=== PATIENT | female | born 1975 | race Caucasian/White ===

== ENCOUNTER 2024-03-25 00:52 | Inpatient (IN) | payer MEDICARE, OTHER, SELFPAY ==
[2024-03-24] VITALS (7 sets, daily range): BP systolic 118–141; BP diastolic 67–78; BMI 19.2
--- NOTE | 2024-03-24 22:02 | EDRN ---
RN called to bedside at 19:40 by pt.'s for reported witnessed seizure-like activity. MD Bernal and Yi Benedict, HEALTH SERVICES COORDINATOR at bedside w/. pt. Pt. is now awake but drowsy, amnesic to event. Pt. placed on 2L NC, stat. CT ordered. CT aware. RN w/ IV
ativan on hold if needed for additional seizure0-like activity, pt. in no acute distress currently. Remains on monitor.
[2024-03-24 22:16] LABS: % Basophils 0.6 % (0-2); % Eosinophils 0.2 % (0-6); % Immature Granulocytes 0.5 % (0-0.5); % Monocytes 4.8 % (1.7-9.3); % Neutrophils 84.9 % (42.2-75.2); Absolute Basophils 0.1 10^3/uL (0-0.2); Absolute Immature Granulocytes 0.1 10^3/uL (0-0.05); Absolute Lymphocytes 1.6 10^3/uL (1.2-3.4); Absolute Monocytes 0.8 10^3/uL (0.1-0.6); Absolute Neutrophils 14.7 10^3/uL (1.4-6.5); Hematocrit 39.5 % (37.0-47.0); Hemoglobin 13.7 g/dL (12.0-16.0); Mean Corp Hgb Conc. 34.7 g/dL (33.0-37.0); Mean Corpuscular Volume 83.5 fL (81.0-99.0); Mean Platelet Volume 11.1 fL (7.4-10.4); Nucleated Red Blood Cells % 0 %; Platelet Count 289 10^3/uL (130-400); Red Blood Cell Count 4.73 10^6/uL (4.20-5.40); Red Cell Dist. Width 12.2 % (11.5-14.5); White Blood Cell Count 17.3 10^3/uL (4.8-10.8)
[2024-03-24] MEDS: VALIUM INJECTION 5 MG IV (22:33)
[2024-03-24 22:35] LABS: COVID-19 Antigen Negative (Negative)
[2024-03-24 22:38] LABS: ALT (SGPT) 22 U/L (0-35); AST (SGOT) 37 U/L (14-36); Albumin 4.7 g/dl (3.5-5.0); Alkaline Phosphatase 79 U/L (38-126); Blood Urea Nitrogen 14 mg/dl (7-17); Calcium 9.8 mg/dl (8.4-10.2); Carbon Dioxide 23 mmol/L (22-30); Chloride 105 mmol/L (98-107); Estimated Creatinine Clearance 69 ml/min; Glucose 117 mg/dl (70-99); Potassium 4.3 mmol/L (3.5-5.1); Sodium 135 mmol/L (135-145); Total Bilirubin 0.8 mg/dl (0.2-1.3); Total Protein 7.5 g/dl (6.3-8.2); eGFR > 60.00
--- NOTE | 2024-03-24 23:05 | EDRN ---
2 RN and 1 ECT unsuccessful w/ straight cath. attempt x 2. Perineal hygiene complete, purewick placed, care team aware of unsuccessful attempts.
--- NOTE | 2024-03-24 23:17 | ED.GENMED ---
History of Present Illness
General
Chief Complaint: Musculo-Skeletal Complaint
Source: patient
Exam Limitations: none
Time Seen by Provider: 03/24/24 21:48
Nursing documentation reviewed up to this point in time: agreed with
Travel History
Have you had any contact with someone who has COVID-19?: No
Do you have any symptoms of coronavirus? Fever > 100 degrees, chills, cough, shortness of breath, sore throat, loss of taste or smell, muscle aches, or headache?: No
History of Present Illness
History of Present Illness:
49 y/o F with h/o MS
no meds followed by dr. bradley from [place] for neuro
she is here with her
c/o ms flare with stiffness in both legs, not better with her normal dose of baclofen
she also uses xanax which she hasn't missed
EMS gave her 2 doses fo fentanyl which helped briefly but then while waiting to b seen she had a tonic clonic seizure lasting about 1 min
it resolved before meds given
pt was post ictal briefly and then was not moving her left arm or leg
she also had a brief hemineglect on left
but then was more responsive and that seemed to resovle
she has not had any recent infectious symptoms, cough, cold urine
pt vomited x 2 at home today apparently before EMS
Past History
Past History
ED Past Medical History: Other (multiple sclerosis)
ED Past Surgical History:
Patient has exhibited threatening behavior?: No
PSI?: No
Social History
Tobacco: Non-smoker
Drug: None
Personal:
Living: with family
Employment: Disabled
Family History
Family History: Other (reviewed and noncontributory)
Review of Systems
Review of Systems
Allergies reviewed?: Yes
All Other Systems: Not applicable
Phy Exam
Physical Exam
Physical Exam:
GENERAL: Alert chronically illl appearing
pt had tonic clonic seizure while i was seeing her
HEAD: NCAT
EYE: pupils equal and reactive, no nystagmus, photophobia
NECK: Supple,full rom, nontender
ENT: o/p clr, mmm.
CARDIAC: Regular rate and rhythm . no edema
LUNGS: Clear breath sounds bilaterally, no acute respiratory distress, no wheezes/rales/rhonchi
ABDOMEN: Soft, without focal tenderness, no r/g, no cvat
NEUROLOGICAL: pt is now a&ox 3, cn intact, strength symmetric
sh edid have some L sided weakness arm and leg
SKIN: Warm and dry, skin intact.
MUSCULOSKELETAL: No edema, well perfused.
PSYCH: Normal and appropriate interaction.
Course
Orders/Labs/Results
Orders:
Orders
03/24/24 21:42
Lorazepam [Ativan] 2 mg .ROUTE .STK-MED ONE
03/24/24 21:49
Electrocardiogram (*1) Urgent
Reason for Study: QTc Monitoring
CT Head W/o Iv Contrast Urgent
Comment:
Reason For Exam: new onset seizure
EKG- Treatment ONCE
Urinalysis Reflex To Culture Urgent
03/24/24 22:11
COVID-19 Antigen Urgent
Source: Nasal Swab
Complete Blood Count/With Diff Urgent
Comprehensive Metabolic Panel Urgent
03/24/24 22:31
diazePAM [Valium Injection] 5 mg IV NOW STA
03/24/24 22:40
Straight cath- Treatment ONCE
03/24/24 23:05
CR Chest - 2 Views Urgent
Comment:
Reason For Exam: fever, siezure
03/24/24 23:22
0.9% Sodium Chloride 1000 ml [Nss] 1,000 ml IV BOLUS
Levetiracetam Injectable [Keppra] 1,500 mg IV NOW STA
03/24/24 23:49
Blood Culture Q30M
REY Source: Blood/Venous
Specimen Description:
Influenza A+B Rapid Molecular Urgent
REY Source: Nasal Swab
Specimen Description:
03/25/24 00:00
Blood Culture Q30M
REY Source: Blood/Venous
Specimen Description:
Abnormal Lab Results
03/24/24
22:11
WBC 17.3 H 10^3/uL
(4.8-10.8)
MPV 11.1 H fL
(7.4-10.4)
Abs Immat Gran (auto) 0.1 H 10^3/uL
(0-0.05)
Absolute Neuts (auto) 14.7 H 10^3/uL
(1.4-6.5)
Absolute Monos (auto) 0.8 H 10^3/uL
(0.1-0.6)
Neutrophils % 84.9 H %
(42.2-75.2)
Lymphocytes % 9.0 L %
(20.5-51.1)
Glucose 117 H mg/dl
(70-99)
AST 37 H U/L
(14-36)
03/24/24 22:11
03/24/24 22:11
Vital Signs
Initial and Last Documented VS:
Initial Vital Signs
BP
128/68
03/24/24 20:34
Last Documented Vital Signs
Temp Pulse Resp BP Pulse Ox
100.8 F H 84 19 126/73 98
03/24/24 21:55 03/24/24 23:01 03/24/24 23:01 03/24/24 23:01 03/24/24 22:10
MDM/Problems Addressed
Differential Diagnosis Includes:
ms, seiuzre, withdrawal, infection/encephlaitis
MDM/Problems Addressed:
49 y/o F from home, MS, nonambulatory, no meds for MS (other than baclofen and xanax) here with spasms in her legs and pain x 2 days; but then on arrival was witnessed by me to have tonic clonic seizure lasting 1 min, resolved, mild post ictal state
and what seemed like robb's paralysis, left hemineglect, but that is resolved; temp 100.8 after seizure, tachy resolved, pain is better after valium
wbc [address] shows MS lesions
d/w neurology attg dr. peraza, keppra 1500 iv now, w/u with blood cultures and urinae for infection (pt was difficult to straight cath so waiting on urine from purwik)
cxr suspicious for pna.
*Critical Care Note
Total Time (30-74mins, 75-104mins- exclusive of procedures): Not Applicable
ED Attending Note
-
Portions of this chart may have been created with voice recognition software.� Occasional wrong word or��sound alike� substitutions may have occurred due to the inherent limitations of voice recognition software.
Discharge Plan
Departure
Patient Disposition: Admit
Date of Disposition: 03/24/24
Time of Disposition: 23:24
Admit to: Telemetry
Presentation/result/management discussed w/ accepting MD/DO: Hospitalist
Condition: Fair
Covid-19: Not Applicable
Discharge Problem:
New onset seizure, Multiple sclerosis, ms flare
Prescriptions:
No Action
tolterodine 2 mg capsule,extended release 24hr
2 mg PO BID
tizanidine 2 mg tablet
2 mg PO TID
trazodone 50 mg tablet
50 mg PO HS
spironolactone 100 mg tablet
100 mg PO DAILY
citalopram 20 mg tablet
20 mg PO BID
baclofen 20 mg tablet
20 mg PO BID 30 Days Qty: 60 0RF
multivitamin Tablet
1 tab PO DAILY
cyanocobalamin (vitamin B-12) [Vitamin B-12] 1,000 mcg Tablet
1,000 mcg PO DAILY
magnesium 250 mg Tablet
500 mg PO DAILY
cholecalciferol (vitamin D3) [Vitamin D3] 50 mcg (2,000 unit) Tablet
50 mcg PO DAILY
Lion's Walter
2,100 mg PO BID
Turmeric Gummies 250 MG
250 mg PO DAILY
alprazolam 0.5 mg tablet
1 mg PO BID
Patient Comments:
03/24/2024: LAST FILLED 03/24/24, 120 TABS FOR 30 DAYS FROM [id number]
Referrals:
Jayda Teague CRNP [Family Provider] -
Interventions
Interventions:
*Risk Screen - Suicide Last Done: 03/24/24 20:35
*General Assessment Last Done: 03/24/24 20:35
*Neglect/Abuse Screening Last Done: 03/24/24 20:35
ED- Fall Risk Assessment Last Done: 03/24/24 21:18
*ED COVID-19 Vaccine History Last Done: 03/24/24 20:35
YA-Efptdf-Xtlvqsbotb Assessment Last Done: 03/24/24 21:00
ED-Musculoskeletal Assessment Last Done: 03/24/24 21:00
Discharge Date and Time
Print Language: ARABIC
[2024-03-25] VITALS (8 sets, daily range): BP systolic 97–127; BP diastolic 52–70; BMI 19.5
[2024-03-25] MEDS: KEPPRA 1500 MG IV (00:13)
[2024-03-25] MEDS: NSS 1000 IV ×3 (00:14→17:18)
--- NOTE | 2024-03-25 00:21 | HPS.HSE ---
Family Physician
-
Family Physician: ANASTASIA King
Chief Complaint
-
Like tightness and spasms
History of Present Illness
This is a 49-year-old female with past medical history of multiple sclerosis, appendicitis, perforation status post appendectomy presenting to the emergency department with 2 days of leg spasms found to have spontaneously resolving seizure lasting
about 1 minute while in the emergency department.
Patient reports that she has a longstanding history of multiple sclerosis but is not currently on any disease modifying agents. She does follow with neurologist. She reports that she is normal but does have a wheelchair. She reported being in
usual state of health up until 2 days ago when she noticed increasing tightness and spasms in her lower extremities bilaterally. She reports chronic intermittent urinary incontinence which is unchanged. She denies any abdominal pain nausea or
vomiting. She denies any chest pain. She denies any coughing or shortness of breath. She denies having any fevers or chills at home. She denies any rash. There have been no skin ulcers. He has been no acute changes in the medications.
When the patient arrived in the ED she appeared to have a witnessed tonic-clonic seizure lasting about 1 minute. Thereafter she had a mild postictal state and was send like Ld's paralysis with left hemineglect. That appeared to have resolved at
this time. She was also found to have a temp of one 100.8.
Vital signs have been otherwise stable with a blood pressure 116/60 pulse of 87 saturation of 98% with respiratory rate of 18. She had leukocytosis of 17,000 with normal hemoglobin and platelet count. Chemistries were unremarkable. ECG with
normal sinus rhythm without any acute changes. COVID test was negative. Head CT was unremarkable except for demyelinating white matter disease. He had a chest x-ray which shows a 80 opacity in the right middle lobe.
Medical History
Past Medical History
Past Medical History: Reports Other (Multiple Sclerosis)
Past Surgical History: Reports Appendectomy
Social History
Tobacco: Non-smoker
Alcohol: None
Drug: None
Personal:
Living: With Family
Employment: Disabled
Family History
Family History: Not pertinent
Allergies / Home Medications
Allergies reflects when Allergies were last updated in [facility].
Home Medications with original date entered in [facility]
Allergy/Medication List:
Allergies
Allergy/AdvReac Type Severity Reaction Status Date / Time
No Known Allergies Allergy Verified 03/24/24 20:34
Home Medications
citalopram 20 mg tablet 20 mg PO BID 06/26/22
spironolactone 100 mg tablet 100 mg PO DAILY 06/26/22
tizanidine 2 mg tablet 2 mg PO TID 06/26/22
tolterodine 2 mg capsule,extended release 24 hr 2 mg PO BID 06/26/22
trazodone 50 mg tablet 50 mg PO HS 06/26/22
baclofen 20 mg tablet 20 mg PO BID 30 days #60 tabs 07/08/22
Lion's Walter 2,100 mg PO BID 03/24/24
Turmeric Gummies 250 mg PO DAILY 03/24/24
alprazolam 0.5 mg tablet 1 mg PO BID 03/24/24
cholecalciferol (vitamin D3) 50 mcg (2,000 unit) tablet (Vitamin D3) 50 mcg PO DAILY 03/24/24
cyanocobalamin (vitamin B-12) 1,000 mcg tablet (Vitamin B-12) 1,000 mcg PO DAILY 03/24/24
magnesium 250 mg tablet 500 mg PO DAILY 03/24/24
multivitamin 1 tab PO DAILY 03/24/24
Review of Systems
-
Unable to obtain full review of systems at this time due to: Acuity
History Source: Patient
Constitutional: Reports No Symptoms
EENT: Reports No Symptoms
Respiratory: Reports No Symptoms
Cardiac: Reports No Symptoms
Abdomen/GI: Reports No Symptoms
: Reports No Symptoms
Musculoskeletal: Reports No Symptoms
Skin: Reports No Symptoms
Neurological: Reports Other (leg spasms)
Endocrine: Reports No Symptoms
Hematologic/Lymphatic: Reports No Symptoms
Psych: Reports No Symptoms
Physical Exam
Vital Signs
Vital Signs
Temp Pulse Resp BP Pulse Ox
100.8 F H 87 18 116/60 97
03/24/24 21:55 03/25/24 00:15 03/25/24 00:15 03/25/24 00:00 03/24/24 23:48
Physical Exam
General: No Apparent Distress
HEENT: NormoCephalic, Anicteric, Moist mucous membranes, Atraumatic, PERRLA and Neck Nontender
Respiratory: Clear
Cardiac: S1/S2 and Regular Rhythm
Breast: Deferred by me
GI: Soft, Non Tender, Non Distended and Normal Bowel Sounds
Rectal: Deferred by Provider
Genito-urinary: No costovertebral tender
Musculoskeletal: No Clubbing, No Cyanosis and No Edema
Skin: Warm and Dry
Neuro: AO x 3, No Sensory Deficits and Other (paraplegia)
Hematologic/Lymphatic: No Lymphadenopathy
Laboratory Results
-
03/24/24 22:11
03/24/24 22:11
Laboratory Results
Total Bilirubin 0.8 mg/dl (0.2-1.3) 03/24/24 22:11
AST 37 U/L (14-36) H 03/24/24 22:11
ALT 22 U/L (0-35) 03/24/24 22:11
Alkaline Phosphatase 79 U/L (38-126) 03/24/24 22:11
Data Reviewed
-
Diagnostic Radiology: Image Personally Visualized and interpreted
Medical Tests (Nuc Med, Echo, EKG etc): Image Personally Visualized and interpreted
Lab Data: Labs Reviewed by me
Old Records: Reviewed
Impression/Plan
-
IMPRESSION:
49 y.o female with h/o MS, bed-bound presenting initially with leg pain and spasms x 2 days thought to be exacerbation of MS and found to have a tonic-clonic seizure in ED lasting 1 minute with post-ictal depression. The post-ictal depression is
resolving. She was thought to have todds paralysis with left hemineglect. Now improved. Leukocytosis and temp of 100.4. Negative COVID.
PLAN:
1. New onset seizure - Possible new onset seizure. Denies prior history. No recent medication changes. CT head with demyelinating white matter changes noted but otherwise unremarkable.
- admit to med surg
- s/p valium in Ed, S/P Keppra 1.5 mg, Neurology consulted
- iv fluids overnight
- metabolic panel WNL
- possible infectious w/u on going
- lorazepam 2mg iv prn recurrent seizure.
2. MS - Possible MS flair. Patient currently without new symptoms. CT scan with white matter changes c/w active disease
- neurology consult
- continue baclofen
3. Fever - Leukocytosis. Xray with RML haziness on the PA view but no consolidation on lateral view. Not convincing.
- hold antibiotics for now
- blood cultures
- u/a and urine cultures sent
- negative covid, flu pending
- check pro-calcitonin
- if fever recurs, will start azithromycin+ceftriaxone for CAP
DVT PPX - lovenox sq
Full Code
[2024-03-25] MEDS: DESYREL 50 MG PO ×2 (02:20→21:39)
[2024-03-25] MEDS: LIORESAL 20 MG PO ×3 (02:21→20:15)
--- NOTE | 2024-03-25 02:56 | PTCARENOTE ---
Patient arrived to unit via stretcher with diagnosis of new onset seizure and MS. Patient AAOx3 but in 09/08 pain stating bilateral leg tightness. Notified on ct OCONNOR who ordered STAT dose of Baclofen and Trazodone. Once medications took effect,
patient fell asleep. Patient denied SOB or chest pain. Per ED nurse, attempted to straight cath patient x2 with no success. Md aware. Patient declined another attempt at current time. Seizure pads in place. Call [facility] within reach.
[2024-03-25 07:09] LABS: Hematocrit 36.6 % (37.0-47.0); Hemoglobin 12.4 g/dL (12.0-16.0); Mean Corp Hgb Conc. 33.9 g/dL (33.0-37.0); Mean Corpuscular Hgb 29.1 pg (27.0-31.0); Mean Corpuscular Volume 85.9 fL (81.0-99.0); Mean Platelet Volume 10.6 fL (7.4-10.4); Platelet Count 220 10^3/uL (130-400); Red Blood Cell Count 4.26 10^6/uL (4.20-5.40); Red Cell Dist. Width 12.5 % (11.5-14.5); White Blood Cell Count 13.7 10^3/uL (4.8-10.8)
[2024-03-25 07:39] LABS: Blood Urea Nitrogen 20 mg/dl (7-17); Calcium 9.6 mg/dl (8.4-10.2); Carbon Dioxide 28 mmol/L (22-30); Chloride 106 mmol/L (98-107); Estimated Creatinine Clearance 82 ml/min; Glucose 109 mg/dl (70-99); Potassium 3.6 mmol/L (3.5-5.1); Sodium 140 mmol/L (135-145); eGFR > 60.00
[2024-03-25 07:40] LABS: Procalcitonin < 0.05 ng/ml (0.0-0.25)
--- NOTE | 2024-03-25 07:40 | RR ---
Patient noted to be rigid in bed and had pulled out iv site. Patient confused, and experiencing difficulty with word finding. When asked where she was, she states '[place]'. Then when asked her age and what month it is her response was '[place]'. [facility]
preformed, see flow sheet. with A Rapid Response was called on this patient, please see Rapid Response form.
[2024-03-25 07:54] LABS: Glucose - Point of Care 107 mg/dl (70-99)
--- NOTE | 2024-03-25 08:16 | CON.NEURO4 ---
Addendum entered and electronically signed by Cisco Herrera MD 03/25/24 13:12:
I saw and evaluated patient I reviewed the note by Clara Dos Santos agree with the findings the following comments:
The patient is a 49-year-old woman with a past no history of multiple sclerosis, spasticity who presents to the hospital initially calling for medical attention based on increased lower extremity spasms and some vomiting at home. He was given
fentanyl by EMS and was seen in the ER to have generalized seizure activity with loss of consciousness which spontaneously aborted and she did have some left-sided weakness along with hemineglect felt most likely to be a postictal Ld's paralysis
type phenomenon. She was given levetiracetam 1500 mg IV. She had white blood cell count of 17 in the ER and had low-grade fever of 100.8.
This morning patient had stroke alert called given confusion with concern for aphasia.
Patient follows with Dr. Thompson at [facility] for multiple sclerosis not currently on any immune modulating medications. At baseline she generally has intermittent urinary incontinence and generally uses wheelchair or walker for ambulation.
She has no personal or family history of seizure no significant alcohol use.
Neurologic examination shows an awake and alert patient who attends to the examiner and interacts with some abnormal speech and evidence of perseveration, mild right-sided visual hemineglect.
Smile is symmetric no dysarthria tongue is midline pupils equal round react light bilaterally. Extraocular is full with no gaze preference seen.
Symmetric strength of the upper extremities with no upper extremity pronator drift shows some mild right leg drift.
Significant spasticity of the lower extremities bilaterally.
CTA of the head and neck no significant intracranial occlusion
Assessment: Suspicion for possible infection given the low-grade fever and leukocytosis triggering seizure due to existing neurologic disease with multiple sclerosis.
Less likely but possible that the fever was a postseizure effect.
Less likely an ischemic stroke given the context of low-grade fever and leukocytosis and seizure as well as history of multiple sclerosis.
Recommendations
-Continue on levetiracetam 500 mg every 12 hours IV
-Neurologic checks
-Placed on continuous EEG, anticipate needing for 24 hours
-If no further seizure activity seen then plan on obtaining brain MRI with and without contrast
-Patient being treated with empiric antibiotic, follow infectious workup and cultures
Original Note:
Documented by User: Clara Gomes NP 03/25/24 11:36
Consultation - Neurology 4
-
CONSULTING PHYSICIAN: Emmanuelle Herrera MD
REFERRING PHYSICIAN: Hospitalists/Dr. Pichardo
DICTATED BY: ANASTASIA Lott
DATE/TIME OF REQUEST: 03/25/24
DATE/TIME OF CONSULTATION: 03/25/24
Reason for Consultation: New onset seizure/Stroke Alert
History of Present Illness:
This is a 49-year-old female with a PMH of multiple sclerosis who has presented to the hospital on 03/24/24 with report of increased bilateral lower extremity spasms and pain. She vomited twice at home and her brought her to the ER for
evaluation. On arrival in the ER, patient had a witness generalized seizure lasting 1 minutes. Upon resolution of seizure activity she was noted to be in a post-ictal state and have a left-sided Ld's paralysis with left hemineglect that resolved.
She was loaded with levetiracetam 1500mg IV. Temp was 100.[address] head was obtained and is negative for any acute findings, demonstrates chronic demyelinating white matter lesions compatible with MS. CXR demonstrates a mild right pleural
effusion. This morning (03/25/24), patient was last seen at her baseline around 0300. Around 0745 patient was woken from sleep by nursing staff and was noted to be aphasic/perseverating with RLE drift promoting a stroke alert to be called. NIHSS is a
4 for mild aphasia, unable to answer orientation questions correctly, and RLE drift. She was taken for CT head and CTA head/neck which are negative for any acute abnormalities. Patient's perseveration/confusion thought to be due to a post-ictal
state not due to stroke and NIHSS is<6 so she is not a candidate for TNK/IAT. Patient denies any headache, dizziness, vision changes, numbness, chest pain, palpitations, and shortness of breath. She endorses difficultly with speech/frustration and
chronic issues with dysphagia. BLE are weak and stiff at baseline.
She is followed by Neurology Dr. Mace at [facility] for her MS. She reports being diagnosed in 1998 and she has been using a cane and/or wheelchair for ambulation since that time. She is not currently taking any DMTs for an unclear reason. She reports
being on 'all of them' in the past. She has a chronic overactive bladder with intermittent urinary incontinence. She denies any recent fevers, illness, sick exposures, and dysuria. She denies any history of seizure, head/neck trauma, or family
history of seizure.
Past Medical History: Multiple sclerosis, rosacea, psoriasis, depression, insomnia, vitamin D deficiency, dysphagia, overactive bladder, mild malnutrition, ataxic gait
Surgical History: Appendectomy, , otoplasty
Family History: Father- pancreatic cancer
Social History: Former smoker. Denies alcohol and illicit drug use.
Allergies: No known allergies.
Home Medications: See below.
Review of Symptoms:
Patient denies any fever, headache, chest pain, shortness of breath, GI or symptoms.
�Per the HPI.�All systems are reviewed negative except above.
Physical Exam:
The patient is afebrile, abdomen is nondistended, breathing is unlabored, skin is warm and dry, no edema.
NIH Stroke Scale:
I performed the NIH stroke scale on the patient on 03/25/24 at 0830. The patient scored 4 points on the NIH stroke scale assessment, which were assigned as follows: See below.
Neurologic Examination:
The patient is awake, alert and oriented x 3. She is able to follow commands and answer questions appropriately. There is no aphasia or dysarthria. On cranial nerve assessment, pupils are 3 mm bilateral, round and reactive to light and
accommodation. Visual bowers are full. Extraocular movements are intact. Facial sensations are intact and bilaterally symmetrical, there is no facial asymmetry. Hearing is intact bilaterally to normal conversation volume. Tongue palate and uvula
are midline. Sternocleidomastoid strengths are full bilaterally. Motor strengths are 5/5 bilateral upper and lower extremities on medical research [place] scale. There is no drift or involuntary movement noted. Deep tendon reflexes are 2+ bilateral
upper and lower extremities and Babinski is absent bilaterally. Sensations of pain, touch, temperature and vibration are intact and bilaterally symmetrical. There was no extinction noted on double simultaneous stimulation. Coordination is intact by
finger to nose bilaterally.
Lab Results: See below.
Neuro Imaging:
1. CT Head 03/24/24: No acute intracranial abnormality. Demyelinating white matter lesions in keeping with multiple sclerosis.
2. CT Head 03/25/24: No CT evidence for acute intracranial hemorrhage or transcortical infarct. Mild periventricular white matter disease consistent with MULTIPLE SCLEROSIS (greatest in the left parietal lobe) which appears unchanged.
3. CTA head/neck 03/25/24: No CTA evidence for internal carotid artery stenosis, occlusion, or dissection. No CTA evidence for vertebral artery stenosis, occlusion, or dissection. Moderate hypoplasia of the cervical segment of the left vertebral
artery. No CTA evidence for internal carotid, middle cerebral, or anterior cerebral artery occlusion or stenosis in the anterior intracranial circulation. 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
the left PICA. 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 Mild to moderate periventricular white matter disease in the left parietal lobe which is
likely demyelinating disease secondary to MULTIPLE SCLEROSIS.
Differentials for the patient's presentation include:
1. New onset generalized seizure with postictal state including transient left Ld paralysis and perseveration, possibly due to infection, multiple sclerosis.
2. Multiple sclerosis with acute exacerbation of BLE spasms/pain, possibly due to infection.
3. Very low concern for stroke/TIA.
Patient has the following risk factors for their symptoms: fever, leukocytosis, vomiting, MS, urinary incontinence, xanax usage
IV Tenecteplase/IAT candidacy: Patient's perseveration/confusion thought to be due to a post-ictal state not due to stroke and NIHSS is<6 so she is not a candidate for TNK/IAT.
Recommendations:
-Continuous EEG ordered.
-Urine reflex urgent ordered/pending. Leukocytosis workup/treatment per primary team.
-MRI brain noncontrast ordered/pending following completion of EEG.
-Continue levetiracetam 500mg IV BID.
-Limit sedating medications.
-Do not see a role for antiplatelet medications at this time.
-Neurological checks per unit guidelines.
-Seizure precautions.
-PT/OT/ST evaluations.
-DVT prophylaxis.
-Will follow.
Discussed patient care with: Dr. Herrera, Dr. Fischer, nursing staff, the patient
Vital Signs and Labs
-
Vital Signs and Labs:
Vital Signs
Temp Pulse Resp BP Pulse Ox
98.5 F 86 18 119/56 99
03/25/24 07:30 03/25/24 07:30 03/25/24 07:30 03/25/24 07:30 03/25/24 07:30
Lab Results
03/25/24 06:54
03/25/24 08:00
Sodium 139 mmol/L (135-145) 03/25/24 08:00
Potassium 3.4 mmol/L (3.5-5.1) L 03/25/24 08:00
BUN 20 mg/dl (7-17) H 03/25/24 08:00
Glucose 105 mg/dl (70-99) H 03/25/24 08:00
Calcium 9.7 mg/dl (8.4-10.2) 03/25/24 08:00
Medications
-
Active Medications
Generic Name Dose Route Start Last Admin
Trade Name Freq PRN Reason Stop Dose Admin
Acetaminophen 650 mg 03/25/24 01:51
Acetaminophen 325 Mg Tablet PO 04/22/24 01:50
Q4HPRN PRN
mild pain/JENKINS/temp> 100.4F
Alprazolam 1 mg 03/25/24 08:00 03/25/24 09:48
Alprazolam 0.5 Mg Tablet PO 04/22/24 07:59 1 mg
BID LAWRENCE Administration
Baclofen 20 mg 03/25/24 08:00 03/25/24 09:49
Baclofen 20 Mg Tablet PO 04/22/24 07:59 20 mg
BID LAWRENCE Administration
Bisacodyl 10 mg 03/25/24 01:51
Bisacodyl 10 Mg Rectal Suppository RECTAL 04/22/24 01:50
[id number] PRN
constipation
Cholecalciferol 50 mcg 03/25/24 08:00 03/25/24 09:49
Cholecalciferol (Vitamin D3) 50 Mcg Tablet (2,000 Units) PO 04/22/24 07:59 50 mcg
DAILY LAWRENCE Administration
Cyanocobalamin 1,000 mcg 03/25/24 08:00 03/25/24 09:47
Cyanocobalamin 1,000 Mcg Tablet PO 04/22/24 07:59 1,000 mcg
DAILY LAWRENCE Administration
Enoxaparin Sodium 40 mg 03/25/24 18:00
Enoxaparin Sodium 40 Mg/0.4 Ml Syringe SC 04/22/24 17:59
QPM LAWRENCE
Sodium Chloride 1,000 mls @ 75 mls/hr 03/25/24 01:51 03/25/24 02:05
Nss IV 1,000 mls
[id number] LAWRENCE Administration
Ampicillin Sodium/Sulbactam 60 mls @ 120 mls/hr 03/25/24 10:00 03/25/24 09:50
Sodium 1.5 gm/ Sodium Chloride IV 60 mls
Q6H LAWRENCE Administration
Potassium Chloride 40 meq/ 270 mls @ 67.5 mls/hr 03/25/24 08:57
Sodium Chloride IV 03/25/24 12:56
NOW STA
Levetiracetam 500 mg 03/25/24 08:00 03/25/24 09:50
Levetiracetam (100 Mg/Ml) 500 Mg/5 Ml Vial IV 04/22/24 07:59 500 mg
Q12 LAWRENCE Administration
Lorazepam 2 mg 03/25/24 01:51
Lorazepam 2 Mg/Ml Vial IV 04/22/24 01:50
Q8HPRN PRN
seizure
Metoclopramide HCl 5 mg 03/25/24 01:51
Metoclopramide 10 Mg/2 Ml Vial IV 04/22/24 01:50
Q8HPRN PRN
nausea or vomiting
Multivitamins Therapeutic 1 tablet 03/25/24 08:00 03/25/24 09:48
Multivitamin Tablet PO 04/22/24 07:59 1 tablet
DAILY LAWRENCE Administration
Polyethylene Glycol 17 grams 03/25/24 01:51
Polyethylene Glycol Powder 17 Grams Packet PO 04/22/24 01:50
DAILYPRN PRN
constipation
Senna/Docusate Sodium 1 tablet 03/25/24 01:51
Docusate W/Senna (Shellie-Colace) Tablet PO 04/22/24 01:50
BIDPRN PRN
constipation
Sodium Chloride 0 flush 03/25/24 02:00
Sodium Chloride 0.9% (Flush) Syringe IV 04/22/24 01:59
PER PROTOCOL LAWRENCE
Sodium Chloride 1 ml 03/25/24 01:59
Nss (Pf) 10 Ml Vial For Ativan 2 Mg Dose IV 04/22/24 01:58
Q8HPRN PRN
IV LORAZEPAM DILUTION
Spironolactone 100 mg 03/25/24 08:00 03/25/24 09:49
Spironolactone 50 Mg Tablet PO 04/22/24 07:59 100 mg
DAILY LAWRENCE Administration
Tizanidine HCl 2 mg 03/25/24 08:00 03/25/24 09:48
Tizanidine 2 Mg Tablet PO 04/22/24 07:59 2 mg
TID LAWRENCE Administration
Tolterodine Tartrate 2 mg 03/25/24 08:00 03/25/24 09:47
Tolterodine 2 Mg Extended Release Capsule PO 04/22/24 07:59 2 mg
BID LAWRENCE Administration
Trazodone HCl 50 mg 03/25/24 22:00
Trazodone 50 Mg Tablet PO 04/22/24 21:59
HS LAWRENCE
Home Medications
�Medication �Instructions �Recorded
citalopram 20 mg tablet 20 mg PO BID 06/26/22
spironolactone 100 mg tablet 100 mg PO DAILY 06/26/22
tizanidine 2 mg tablet 2 mg PO TID 06/26/22
tolterodine 2 mg capsule,extended 2 mg PO BID 06/26/22
release 24 hr
trazodone 50 mg tablet 50 mg PO HS 06/26/22
baclofen 20 mg tablet 20 mg PO BID 30 days #60 tabs 07/08/22
Lion's Walter 2,100 mg PO BID 03/24/24
Turmeric Gummies 250 mg PO DAILY 03/24/24
alprazolam 0.5 mg tablet 1 mg PO BID 03/24/24
cholecalciferol (vitamin D3) 50 50 mcg PO DAILY 03/24/24
mcg (2,000 unit) tablet (Vitamin
D3)
cyanocobalamin (vitamin B-12) 1,000 mcg PO DAILY 03/24/24
1,000 mcg tablet (Vitamin B-12)
magnesium 250 mg tablet 500 mg PO DAILY 03/24/24
multivitamin 1 tab PO DAILY 03/24/24
NIH Stroke Score
Subsequent NIH Scale
Date of Subsequent NIH Scale: 03/25/24
Time of Subsequent NIH Scale: 08:30
NIH Stroke Score
Level of Consciousness: 0 - Alert
LOC Questions: 2-Neither correct
LOC Commands: 0-Performs both correctly
Best Horizontal Gaze: 0-Normal
Visual Boewrs: 0=Normal, no visual loss
Facial Palsy: 0=Normal, symmetrical
Motor - Right Arm: 0=No drift 10 seconds
Motor - Left Arm: 0=No drift 10 seconds
Motor - Right Le-Drift < 5 seconds
Motor - Left Le-No drift 5 seconds
Limb Ataxia: 0-Absent
Sensation: 0-Normal
Best Language: 1-Mild aphasia
Dysarthria: 0-Normal
Extinction and Inattention: 0-No abnormality
Total Score:: 4

Documented by User: Cisco Herrera MD 03/25/24 13:07
NIH Stroke Score
NIH Stroke Score
Total Score:: 4
--- NOTE | 2024-03-25 08:46 | W.PN.HOSP.TC ---
Addendum entered and electronically signed by Jayda Fischer MD 03/25/24 09:02:
hypokalemia--replete K
Original Note:
Today's Communication/Plan
-
apprec neuro
continuous EEG
loja culture
start unasyn
Assessment / Plan
Assessment / Plan
pt is a 49 year old female
New onset seizure-- possibly triggered by MS--had stroke alert this AM 03/25--head CT/CTAs no acute findings--unclear if pt with infection--denies cough, n/v/d/dysuria--No recent medication changes (CT head with demyelinating white matter changes
noted but otherwise unremarkable)--apprec neuro--getting continuous EEG--start unasyn--get UA C&S with st cath--keppra started by neuro atlia donohue
MS--Possible MS flair with spasms on admission--not on any disease modifying agents and per pt no plans to start--CT scan with white matter changes c/w active disease--cont baclofen--apprec neuro
Fever - Leukocytosis--?due to seizure--pt gives no symptoms of infection--CXR NAD--start unasyn--follow blood and urine cultures (st cath to obtain)--procalcitonin/covid/flu neg
DVT PPX - lovenox sq
code status --Full Code
Anticipated Discharge: > 48 hours
Subjective/Interval History
-
Date of Service: March 25, 2024
stroke alert called this AM for confusion--sent for head CT and CTAs--no acute findings
Objective Data
-
Labs:
Laboratory Results
03/24/24 03/25/24 03/25/24
22:11 06:54 08:00
WBC 17.3 H 13.7 H
Hgb 13.7 12.4
Hct 39.5 36.6 L
Plt Count 289 220 D
Sodium 135 140 Pending
Potassium 4.3 3.6 Pending
Chloride 105 106 Pending
Carbon Dioxide 23 28 Pending
BUN 14 20 H Pending
Creatinine 0.7 0.6 Pending
Glucose 117 H 109 H Pending
Calcium 9.8 9.6 Pending
Total Bilirubin 0.8 Pending
AST 37 H Pending
ALT 22 Pending
Alkaline Phosphatase 79 Pending
Vital Signs:
max temp for 24 hours
03/24/24
21:55
Temp 100.8 F H
Vital Signs
Temp Pulse Resp BP Pulse Ox
98.5 F 86 18 119/56 99
03/25/24 07:30 03/25/24 07:30 03/25/24 07:30 03/25/24 07:30 03/25/24 07:30
I&O
03/24/24 03/25/24 03/26/24
06:59 06:59 06:59
Intake Total 930 / 930
Balance 930 / 930
Review of Systems
-
All other systems: Reviewed and negative (denies any infectious symptoms)
Physical Exam
-
General: Appears Chronically Ill
HEENT: Normocephalic and Atraumatic; Negative Oxygen
Respiratory: Clear to Auscultation; Negative Wheezes or Rhonchi
Cardiac: Regular Rhythm and S1/S2; Negative Murmur
GI: Soft, Nontender, Nondistended and Normal Bowel Sounds
Musculoskeletal: No Clubbing, No Cyanosis and No Edema
Neuro: Nonfocal/Grossly Intact
Psych: Calm
[2024-03-25 08:54] LABS: ALT (SGPT) 30 U/L (0-35); AST (SGOT) 52 U/L (14-36); Albumin 4.5 g/dl (3.5-5.0); Alkaline Phosphatase 77 U/L (38-126); Blood Urea Nitrogen 20 mg/dl (7-17); Calcium 9.7 mg/dl (8.4-10.2); Carbon Dioxide 27 mmol/L (22-30); Chloride 107 mmol/L (98-107); Estimated Creatinine Clearance 70 ml/min; Glucose 105 mg/dl (70-99); Potassium 3.4 mmol/L (3.5-5.1); Sodium 139 mmol/L (135-145); Total Bilirubin 0.5 mg/dl (0.2-1.3); eGFR > 60.00
[2024-03-25] MEDS: VITAMIN B-12 1000 MCG PO (09:47)
[2024-03-25] MEDS: DETROL LA 2 MG PO ×2 (09:47→20:12)
[2024-03-25] MEDS: THERAGRAN 1 TABLET PO (09:48)
[2024-03-25] MEDS: XANAX 1 MG PO ×2 (09:48→20:15)
[2024-03-25] MEDS: ZANAFLEX 2 MG PO ×3 (09:48→21:39)
[2024-03-25] MEDS: VITAMIN D3 (cholecalciferol) 50 MCG PO (09:49)
[2024-03-25] MEDS: ALDACTONE 100 MG PO (09:49)
[2024-03-25] MEDS: KEPPRA 500 MG IV ×2 (09:50→20:13)
[2024-03-25] MEDS: UNASYN IV ×3 (09:50→21:39)
--- NOTE | 2024-03-25 10:30 | PTCARENOTE ---
Urine sample obtained via straight cath. Procedure tolerated by patient.
[2024-03-25 11:46] LABS: Urine Albumin Trace (Neg - Trace); Urine Bilirubin Negative (Negative); Urine Character Clear (Clear); Urine Color Yellow; Urine Glucose Negative (Negative); Urine Ketone 3+ (Negative); Urine Leukocyte Trace (Negative); Urine Nitrite Positive (Negative); Urine Occult Blood 1+ (Negative); Urine Urobilinogen Negative (Neg - 1+); Urine pH 6.5 (5.0-9.0)
[2024-03-25 12:09] LABS: Urine Bacteria Few (Negative); Urine Red Blood Cell 0-2 /HPF (0-2); Urine Squamous Cell 0-2 /LPF (Few); Urine White Cell 0-2 /HPF (0-5)
[2024-03-25] MEDS: KCL 270 MEQ IV (12:41)
--- NOTE | 2024-03-25 15:30 | PTOTSP ---
Speech Language Pathology
Pt seen for clinical bedside swallow evaluation. Previous VSE completed 10/10/20 and 11/01/19 with functional oropharyngeal swallow. Pt mostly complaining of sternal retention at that time. Per pt, she received botox injection to esophagus, which
has significantly improved this. She did endorse burping frequently with P.O. intake.
P.O. trials of regular solids and thin liquids provided. Adequate mastication, bolus formation, and A-P transit noted with no oral residue. No overt signs of aspiration. Burping noted post with pt reporting some backflow of material, which she
was able to reswallow.
Recommend:
(1) Regular solids/thin liquids
(2) General aspiration precautions
(3) Meds as tolerated
(4) Further dysphagia services not indicated. Will consider speech/language evaluations pending neuro workup
--- NOTE | 2024-03-25 16:37 | CM ---
Patient seen bedside with spouse.
dx MS
Patient lives with spouse and son.
Patient lives in a 2 story home with 2 steps to 2nter and 5 steps to second floor.
In the house patient ambulates with RW, when out uses a WC.
Spouse assists.
Patient does not drive.
Has been in [facility] in the past.
Pharmacy: [facility].
Plan: possible home care needs. PT
[2024-03-25] MEDS: LOVENOX 40 MG SC (17:17)
[2024-03-25] MEDS: FLUSH (NSS) 1 FLUSH IV (20:16)
[2024-03-25] MEDS: FLUSH (NSS) 2 FLUSH IV (21:40)
[2024-03-26] VITALS (7 sets, daily range): BP systolic 98–124; BP diastolic 54–65; PULSE 68
[2024-03-26] MEDS: UNASYN IV ×4 (04:45→21:05)
--- NOTE | 2024-03-26 08:08 | EEGC.RPT ---
Continuous EEG Report
Recording
Start Date of Data Reviewed: 03/25/24
Start Time of Data Reviewed: 09:28
End Date of Data Reviewed: 03/26/24
End Time of Data Reviewed: 08:00
Type of EEG: Continuous
Done with Video Recording: Yes
Study Sequence: Continuation of ongoing Study
Electrocardiogram: Unremarkable
Report
24 HOUR EEG REPORT
EEG INTERPRETATION:
Mildly abnormal study with diffuse slowing in the early portion of the study, normalizing after 1-2 hours, this is non-specific as to etiology. Some excess beta activity seen.
CLINICAL CORRELATION:
This study was suggestive of mild bihemispheric cortical dysfunction. Excess beta activity most likely due to chronic benzodiazepine use.
Clinical correlation is advised.
METHODS:
A 21-channel digital electroencephalogram (EEG) was performed at the bedside. The 10/20 international system of electrode placement was used with ECG and lateral/vertical eye movements recorded. Video was recorded. Duration 22 hours 30 minutes.
IMPRESSION(S):
Quality of study
Good
Background
Mixed medium amplitude mix of deta activity in the beginning 1-2 hours, afterwars showing mostly alpha and beta activities.
Posterior dominant rhythm seen of 11 Hz
No asymmetry of background seen
Sleep
Drowsiness present
Hyperventilation
Not performed
Photic Stimulation
Not performed
ECG
Normal rhythm
Abnormal Activity
No seizures or interictal epileptiform discharges seen
[2024-03-26 08:10] LABS: Hematocrit 34.5 % (37.0-47.0); Hemoglobin 11.5 g/dL (12.0-16.0); Mean Corp Hgb Conc. 33.3 g/dL (33.0-37.0); Mean Corpuscular Hgb 29.3 pg (27.0-31.0); Mean Platelet Volume 11.4 fL (7.4-10.4); Platelet Count 183 10^3/uL (130-400); Red Blood Cell Count 3.92 10^6/uL (4.20-5.40); Red Cell Dist. Width 12.8 % (11.5-14.5); White Blood Cell Count 8.4 10^3/uL (4.8-10.8)
--- NOTE | 2024-03-26 08:12 | W.PN.NEURO.1 ---
Today's Communication / Plan
-
-Continue levetiracetam 500 mg every 12 hours IV
-Okay to come off continuous EEG
-Check brain MRI with and without contrast
-Continue antibiotics, follow cultures and infectious workup
-Neurologic checks
-Continue home dose baclofen, consideration for increasing this upon discharge due to significant baseline spasticity and painful spasms the patient had experienced prior to admission
-Continue home alprazolam and tizanidine same dosing
Will follow
Neuro Assessment/Plan
Assessment
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
lower extremities, given fentanyl by EMS brought into the ER and had report of seizure activity with loss of consciousness. Did have low-grade fever to 100.8. Seemed to have some left-sided weakness after seizure activity possibly representing
Ld's paralysis.
Stroke alert called a.m. of 03/25 due to significant speech difficulties. On my examination that time she had right-sided visual hemineglect as well as some evidence of aphasia with perseveration. CTA of the head and neck showed no large vessel
occlusions.
Continuous EEG showed some slowing the beginning the study then normalized with some excess beta activity most likely due to her home benzodiazepines. No seizures or clear interictal epileptiform discharges were seen. Patient with no previous
history of seizure or family history of seizure or significant alcohol use.
She was placed on antibiotics for empiric treatment of possible infection given the low-grade fever and mild leukocytosis
Improvement in mental status the a.m. of 03/26
Subjective/Objective
Subjective Data
Date of Service: March 26, 2024
Objective Data
Vital Signs
Temp Pulse Resp BP Pulse Ox
98.2 F 63 18 118/64 97
03/26/24 03:10 03/26/24 03:10 03/26/24 03:10 03/26/24 03:10 03/26/24 03:10
Sodium 139 mmol/L (135-145) 03/25/24 08:00
Potassium 3.4 mmol/L (3.5-5.1) L 03/25/24 08:00
BUN 20 mg/dl (7-17) H 03/25/24 08:00
Glucose 105 mg/dl (70-99) H 03/25/24 08:00
Calcium 9.7 mg/dl (8.4-10.2) 03/25/24 08:00
Patient Allergies
No Known Allergies Allergy (Verified 03/24/24 20:34)
Review of Systems
-
History Source: Patient
All other systems: Reviewed and negative
Constitutional: No Symptoms
EENT: No Symptoms Reported
Respiratory: No Symptoms
Cardiac: No Symptoms
Abdomen/GI: No Symptoms
Genitourinary: No Symptoms
Musculoskeletal: No Symptoms
Skin: No Symptoms
Neuro: See existing Neuro Note
Endocrine: No Symptoms
Hematologic / Lymphatic: No Symptoms
Physical Exam
-
General: Appears Chronically Ill
Eyes: No Ptosis
HEENT: Normocephalic
Neck: No Bruits Bilaterally
Respiratory: Clear to Auscultation
Cardiac: Regular Rhythm
GI: Normal Bowel Sounds
Skin: Unremarkable
Extremities: No Clubbing
Psych: Unremarkable
Extended Neurological Exam
Mood & Affect: Mood Unremarkable and Affect Unremarkable
Attention Span & Concentration: Awake, Alert and Interactive
Memory: Unremarkable
Tremor: Hand Tremor Absent
Involuntary Movement: None
Speech: Quality Unremarkable, Quantity Unremarkable and Other (No perseveration, fluent speech, comprehension good); Negative Expressive Aphasia or Receptive Aphasia
Cranial Nerve II: Left Eye: Pupillary Reactivity Unremarkable, Pupillary Size Unremarkable and Other (No visual neglect (had AM of 03/25))
Cranial Nerve II: Right Eye: Pupillary Reactivity Unremarkable, Pupillary Size Unremarkable and Other (No visual neglect (had AM of 03/25))
Cranial Nerves III, IV, : Extraocular Movement: Extraocular Movement Full in all Directions
Cranial Nerve VII: Facial Symmetry: Normal Facial Symmetry
Muscle Strength, Overall: Other (Legs with bilateral significant spasticity, arms full strength bilaterally)
Touch Sensation: Unremarkable
Data Reviewed
-
CT Head: Report Reviewed and Image Reviewed
MRI Head: Ordered and Pending
EEG: Report Reviewed
Labs: Report Reviewed
[2024-03-26 08:44] LABS: ALT (SGPT) 26 U/L (0-35); AST (SGOT) 55 U/L (14-36); Albumin 3.6 g/dl (3.5-5.0); Alkaline Phosphatase 63 U/L (38-126); Blood Urea Nitrogen 16 mg/dl (7-17); Calcium 9.2 mg/dl (8.4-10.2); Carbon Dioxide 26 mmol/L (22-30); Chloride 108 mmol/L (98-107); Estimated Creatinine Clearance 82 ml/min; Glucose 74 mg/dl (70-99); Potassium 3.6 mmol/L (3.5-5.1); Sodium 139 mmol/L (135-145); Total Bilirubin 0.5 mg/dl (0.2-1.3); Total Protein 5.8 g/dl (6.3-8.2); eGFR > 60.00
[2024-03-26] MEDS: VITAMIN B-12 1000 MCG PO (08:49)
[2024-03-26] MEDS: DETROL LA 2 MG PO ×2 (08:49→21:04)
[2024-03-26] MEDS: ALDACTONE PO ×2 (08:49→09:02)
[2024-03-26] MEDS: XANAX 1 MG PO ×2 (08:49→21:03)
[2024-03-26] MEDS: LIORESAL 20 MG PO ×2 (08:49→21:03)
[2024-03-26] MEDS: VITAMIN D3 (cholecalciferol) 50 MCG PO (08:50)
[2024-03-26] MEDS: THERAGRAN 1 TABLET PO (08:50)
[2024-03-26] MEDS: ZANAFLEX 2 MG PO ×3 (08:50→21:04)
[2024-03-26] MEDS: KEPPRA 500 MG IV ×2 (08:50→21:04)
--- NOTE | 2024-03-26 10:30 | W.PN.HOSP.TC ---
Today's Communication/Plan
-
MRI today
Assessment / Plan
Assessment / Plan
pt is a 49 year old female
New onset seizure-- possibly triggered by MS--had stroke alert AM 03/25--head CT/CTAs no acute findings--unclear if pt with infection--denies cough, n/v/d/dysuria--No recent medication changes (CT head with demyelinating white matter changes noted
but otherwise unremarkable)--apprec neuro--continuous EEG without sz--start unasyn--get UA C&S with st cath--keppra started by neuro, ativan PRN sz
MS--Possible MS flair with spasms on admission--not on any disease modifying agents and per pt no plans to start--CT scan with white matter changes c/w active disease--cont baclofen--apprec neuro
Fever - Leukocytosis--E. coli UTI by urine culture--CXR NAD--start unasyn--follow blood and urine cultures (st cath to obtain)--procalcitonin/covid/flu neg--WBC now normal
DVT PPX - lovenox sq
code status --Full Code
Anticipated Discharge: 24 - 48 hours
Subjective/Interval History
-
Date of Service: March 26, 2024
pt doing much better--coming off EEG
Objective Data
-
Labs:
Laboratory Results
03/26/24
06:32
WBC 8.4
Hgb 11.5 L
Hct 34.5 L
Plt Count 183
Sodium 139
Potassium 3.6
Chloride 108 H
Carbon Dioxide 26
BUN 16
Creatinine 0.6
Glucose 74
Calcium 9.2
Total Bilirubin 0.5
AST 55 H
ALT 26
Alkaline Phosphatase 63
Vital Signs:
max temp for 24 hours
03/26/24
03:10
Temp 98.2 F
Vital Signs
Temp Pulse Resp BP Pulse Ox
97.9 F 70 18 103/65 96
03/26/24 07:00 03/26/24 07:00 03/26/24 07:00 03/26/24 07:00 03/26/24 07:00
I&O
03/25/24 03/26/24 03/27/24
06:59 06:59 06:59
Intake Total 930 / 930 885 / 885
Balance 930 / 930 885 / 885
Review of Systems
-
All other systems: Reviewed and negative
Physical Exam
-
General: Well Developed, Well Nourished and No Apparent Distress
HEENT: Normocephalic and Atraumatic
Respiratory: Clear to Auscultation; Negative Wheezes or Rhonchi
Cardiac: Regular Rhythm and S1/S2; Negative Murmur
GI: Soft, Nontender, Nondistended and Normal Bowel Sounds
Musculoskeletal: No Clubbing, No Cyanosis and No Edema
[2024-03-26] MEDS: NSS IV (13:49)
[2024-03-26] MEDS: LOVENOX 40 MG SC (17:32)
[2024-03-26] MEDS: DESYREL 50 MG PO (21:04)
[2024-03-26] MEDS: FLUSH (NSS) 2 FLUSH IV (21:05)
--- NOTE | 2024-03-26 21:30 | PTCARENOTE ---
Pt. noted to staff that she is having auditory hallucinations, 'I hear Dang [place]ung[place] singing from the radiator', she noted that she has had auditory hallucinations in the past, pt. is AAO x 3, very anxious, nurse tried to calm pt. and reassured her,
gave pt. her psych meds, reached out to ANASTASIA Atkinson to make her aware, no further orders, just to watch pt.
[2024-03-27 03:15] VITALS: BP 93/69
[2024-03-27] MEDS: UNASYN IV ×2 (04:36→10:25)
[2024-03-27] MEDS: FLUSH (NSS) 2 FLUSH IV (04:37)
--- NOTE | 2024-03-27 06:08 | PTCARENOTE ---
Pt. noted since she slept, she has not had anymore auditory hallucinations after she awoke.
[2024-03-27 07:04] LABS: Blood Urea Nitrogen 12 mg/dl (7-17); Calcium 9.7 mg/dl (8.4-10.2); Carbon Dioxide 30 mmol/L (22-30); Chloride 106 mmol/L (98-107); Estimated Creatinine Clearance 82 ml/min; Glucose 85 mg/dl (70-99); Magnesium 2.1 mg/dl (1.6-2.3); Potassium 3.6 mmol/L (3.5-5.1); Sodium 139 mmol/L (135-145); eGFR > 60.00
[2024-03-27 07:10] LABS: Hematocrit 37.5 % (37.0-47.0); Hemoglobin 12.6 g/dL (12.0-16.0); Mean Corp Hgb Conc. 33.6 g/dL (33.0-37.0); Mean Corpuscular Volume 86.2 fL (81.0-99.0); Mean Platelet Volume 10.9 fL (7.4-10.4); Platelet Count 194 10^3/uL (130-400); Red Blood Cell Count 4.35 10^6/uL (4.20-5.40); Red Cell Dist. Width 12.4 % (11.5-14.5); White Blood Cell Count 7.5 10^3/uL (4.8-10.8)
[2024-03-27] MEDS: DETROL LA 2 MG PO ×2 (08:18→20:40)
[2024-03-27] MEDS: ZANAFLEX 2 MG PO ×3 (08:18→22:52)
[2024-03-27] MEDS: VITAMIN B-12 1000 MCG PO (08:18)
[2024-03-27] MEDS: VITAMIN D3 (cholecalciferol) 50 MCG PO (08:18)
[2024-03-27] MEDS: THERAGRAN 1 TABLET PO (08:18)
[2024-03-27] MEDS: XANAX 1 MG PO ×2 (08:19→20:40)
[2024-03-27] MEDS: ALDACTONE 100 MG PO (08:19)
[2024-03-27] MEDS: LIORESAL 20 MG PO ×3 (08:19→22:52)
[2024-03-27] MEDS: ATIVAN 0.5 MG IV (08:20)
[2024-03-27] MEDS: KEPPRA 500 MG IV (08:20)
[2024-03-27] MEDS: NSS (PRESERVATIVE FREE) 0.25 ML IV (08:20)
--- NOTE | 2024-03-27 08:28 | W.PN.NEURO.1 ---
Today's Communication / Plan
-
-On antibiotics
-Increase in Baclofen to 20 mg TID given spasms and lower extremity spasticity
-Brain MRI today
-Would plan for 4 weeks of Levetiracetam and then stop given , continue on 500 mg PO Levetiracetam BID
Will follow
Neuro Assessment/Plan
Assessment
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
lower extremities, given fentanyl by EMS brought into the ER and had report of seizure activity with loss of consciousness. Did have low-grade fever to 100.8. Seemed to have some left-sided weakness after seizure activity possibly representing
Ld's paralysis.
Stroke alert called a.m. of 03/25 due to significant speech difficulties. On my examination that time she had right-sided visual hemineglect as well as some evidence of aphasia with perseveration. CTA of the head and neck showed no large vessel
occlusions.
Continuous EEG showed some slowing the beginning the study then normalized with some excess beta activity most likely due to her home benzodiazepines. No seizures or clear interictal epileptiform discharges were seen. Patient with no previous
history of seizure or family history of seizure or significant alcohol use.
Improvement in mental status the a.m. of 03/26 and doing well AM of 03/27
She was placed on antibiotics for empiric treatment of possible infection given the low-grade fever and mild leukocytosis
Mildly abnormal UA with growth of E. coli from urine culture
Suspect she may have been in early stages of UTI causing encephalopathy and seizure given the history of multiple sclerosis
Not feeling that she would necessarily need [facility] anti seizure medications with high likelihood of metabolic disturbance provoking it
Subjective/Objective
Subjective Data
Date of Service: March 27, 2024
No acute events, discussed suspicion for a low grade infection possibly a UTI triggering things, getting MRI this morning, discussed increase in baclofen
Objective Data
Vital Signs
Temp Pulse Resp BP Pulse Ox
97.5 F 67 18 93/69 98
03/27/24 03:15 03/27/24 03:15 03/27/24 03:15 03/27/24 03:15 03/27/24 03:15
Lab Results
03/27/24 06:19
03/27/24 06:19
Sodium 139 mmol/L (135-145) 03/27/24 06:19
Potassium 3.6 mmol/L (3.5-5.1) 03/27/24 06:19
BUN 12 mg/dl (7-17) 03/27/24 06:19
Glucose 85 mg/dl (70-99) 03/27/24 06:19
Calcium 9.7 mg/dl (8.4-10.2) 03/27/24 06:19
Patient Allergies
No Known Allergies Allergy (Verified 03/24/24 20:34)
Review of Systems
-
History Source: Patient
All other systems: Reviewed and negative
Constitutional: No Symptoms
EENT: No Symptoms Reported
Respiratory: No Symptoms
Cardiac: No Symptoms
Abdomen/GI: No Symptoms
Genitourinary: No Symptoms
Musculoskeletal: No Symptoms
Skin: No Symptoms
Neuro: See existing Neuro Note
Endocrine: No Symptoms
Hematologic / Lymphatic: No Symptoms
Allergy / Immunology: No Symptoms
Physical Exam
-
General: Well Nourished
Eyes: No Ptosis
HEENT: Normocephalic
Neck: No Bruits Bilaterally
Respiratory: Clear to Auscultation
Cardiac: Regular Rhythm
GI: Normal Bowel Sounds
Skin: Unremarkable
Extremities: No Clubbing
Psych: Intact Judgement/Insight; Negative Confused
Extended Neurological Exam
Mood & Affect: Mood Unremarkable and Affect Unremarkable
Attention Span & Concentration: Awake, Alert and Interactive
Memory: Reduced
Tremor: Hand Tremor Absent
Involuntary Movement: None
Speech: Quality Unremarkable and Quantity Unremarkable; Negative Expressive Aphasia or Receptive Aphasia
Cranial Nerve II: Left Eye: Pupillary Reactivity Unremarkable, Pupillary Size Unremarkable, Visual Huff Intact and Other (No visual neglect)
Cranial Nerve II: Right Eye: Pupillary Reactivity Unremarkable, Pupillary Size Unremarkable, Visual Huff Intact and Other (No visual neglect)
Cranial Nerves III, IV, : Extraocular Movement: Extraocular Movement Full in all Directions
Cranial Nerve XII: Tongue Protusion: Midline
Muscle Strength, Overall: Other (No pronator drift, power 5/5 for shoulder abduction arm flexion, lower extremity weakness with spasticity bilaterally)
Muscle Bulk & Tone: Other (Bilateral lower extremity spasticity)
Pronator Drift: No Drift in Upper Extremities
Coordination: Nhbzfs-pmno-fuwady Testing Unremarkable
Babinski Sign: Absent Bilaterally
Data Reviewed
-
CT Head: Report Reviewed and Image Reviewed
MRI Head: Image Reviewed
EEG: Report Reviewed
[2024-03-27 08:30] VITALS: BP 135/72
[2024-03-27 11:30] VITALS: BP 102/62
--- NOTE | 2024-03-27 11:57 | W.PN.HOSP.TC ---
Today's Communication/Plan
-
change abx to oral keflex
PT/OT
d/c planning
Assessment / Plan
Assessment / Plan
pt is a 49 year old female
New onset seizure-- possibly triggered by MS--had stroke alert AM 03/25--head CT/CTAs no acute findings---No recent medication changes (CT head with demyelinating white matter changes noted but otherwise unremarkable)--apprec neuro--continuous EEG
without sz---keppra started by neuro and cont 4 weeks then stop, ativan PRN sz--MRI with severe MS changes
auditory hallucinations through the radiator--consult psych
MS--Possible MS flair with spasms on admission--not on any disease modifying agents and per pt no plans to start--CT scan with white matter changes c/w active disease--increase baclofen to 20 mg TID--apprec neuro
Fever - Leukocytosis--E. coli UTI by urine culture--CXR NAD--change unasyn to oral keflex---procalcitonin/covid/flu neg--WBC now normal
DVT PPX - lovenox sq
code status --Full Code
Anticipated Discharge: Within 24 hours
Subjective/Interval History
-
Date of Service: March 27, 2024
pt without c/o today
Objective Data
-
Labs:
Laboratory Results
03/27/24
06:19
WBC 7.5
Hgb 12.6
Hct 37.5
Plt Count 194
Sodium 139
Potassium 3.6
Chloride 106
Carbon Dioxide 30
BUN 12
Creatinine 0.6
Glucose 85
Calcium 9.7
Vital Signs:
max temp for 24 hours
03/26/24
19:20
Temp 98.2 F
Vital Signs
Temp Pulse Resp BP Pulse Ox
98 F 83 22 135/72 98
03/27/24 08:30 03/27/24 08:30 03/27/24 08:30 03/27/24 08:30 03/27/24 08:30
I&O
03/26/24 03/27/24 03/28/24
06:59 06:59 06:59
Intake Total 885 / 885 1920 / 1920
Output Total 2525 / 2525
Balance 885 / 885 -605 / -605
Review of Systems
-
All other systems: Reviewed and negative
Physical Exam
-
General: Appears Chronically Ill
HEENT: Normocephalic and Atraumatic
Respiratory: Clear to Auscultation; Negative Wheezes or Rhonchi
Cardiac: Regular Rhythm and S1/S2; Negative Murmur
GI: Soft, Nontender and Nondistended
Musculoskeletal: No Clubbing, No Cyanosis and No Edema
--- NOTE | 2024-03-27 13:40 | CON.MD ---
Consultation - Medical
-
patient seen chart reviewed. discussed w nursing. the patient is a 49 year old woman who has multiple sclerosis rx at [facility]. she comes to w c/o lower extremity stiffness unrelieved by baclofen. the patient suffered a sz while here. she was seen by
neuro and eron being prescribed. she complained of hearing music coming from the radiator while here. she said it occurred at sleep offset. she had never experienced a hallucination before and it has stopped. she is not experiencing
hallucinations at present. she was being rx for depression w citalopram 40 mg daily and xanax one mg bid for anxiety. she was also taking trazodone at for sleep. the latter two are in her current medications at the celexa is not. she did
feel they were somewhat helpful. she sometimes struggles to sleep. appetite is okay. she can enjoy some activities. she does admit she is stressed by her illness and she does experience despite her medication some dysphoria. she is NOT suicidal.
past psych hx see above no hospitalizations no psychotherapy
medical hx see above re reason for admit as well as subsequent sz. eeg shows slowing. uti noted other cultures pending mri shows no acute changes severe ms unchanged since 2019 imaging. hypokalemia also noted on admit.
fh denied
substance abuse denied
social h supportive patient unable to employ on social security one son age 22
mse alert ox3 cooperative pleasant. speech and thought process nl no psychosis mood currently neutral affect appropriate no si aver intelligence insight judgment good
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
recommendations: do not see any need to treat these hallucinations...in any case they have ceased. reassured patient that hallucinations at the onset or offset of sleep can occur and do not need to be treated. i do note that she is not taking
celexa currently. she was under the impression that she was still taking it. i don't see any reason why she cannot take celexa. she felt it was somewhat helpful. her pcp might consider changing to another antidepressant or adding eg wellbutrin if
it is not sufficiently effective qtc is nl. trazodone and xanax have been continued. would try to avoid any antipsychotics which could increase stiffness/spasticity. psych wll sign off.
[2024-03-27 16:45] VITALS: BP 103/60
[2024-03-27] MEDS: LOVENOX 40 MG SC (17:00)
[2024-03-27 19:30] VITALS: BP 117/71
[2024-03-27] MEDS: KEFLEX 500 MG PO (20:40)
[2024-03-27] MEDS: KEPPRA 500 MG PO (20:40)
[2024-03-27] MEDS: DESYREL 50 MG PO (22:52)
[2024-03-27 23:30] VITALS: BP 118/70
[2024-03-28] MEDS: NSS (PRESERVATIVE FREE) 0.25 ML IV (01:13)
[2024-03-28] MEDS: ATIVAN 0.5 MG IV (01:13)
--- NOTE | 2024-03-28 01:18 | PTCARENOTE ---
Pt reports severe pain in both legs and feet. Pt refused PRN Tylenol. [employer] Shivani Atkinson notified, order for 1x IV Ativan 0.5mg acknowledged and given to pt. Will continue to monitor.
[2024-03-28 03:20] VITALS: BP 129/69
[2024-03-28 08:00] VITALS: BP 102/67
--- NOTE | 2024-03-28 08:06 | W.PN.NEURO.1 ---
Today's Communication / Plan
-
-Would continue on PO Levetiracetam 500 mg BID for 4 weeks after discharge
-Brain MRI reviewed with no concerning findings, has existing MS
-Continue baclofen at increased dose 20 mg TID for lower extremity spasticity and spasms
-Continuing on antibiotics
-Discussed follow up with her existing neurologist
-No further workup from my perspective
Will sign off call with questions and concerns
Neuro Assessment/Plan
Assessment
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
lower extremities, given fentanyl by EMS brought into the ER and had report of seizure activity with loss of consciousness. Did have low-grade fever to 100.8. Seemed to have some left-sided weakness after seizure activity possibly representing
Ld's paralysis.
Stroke alert called a.m. of 03/25 due to significant speech difficulties. On my examination that time she had right-sided visual hemineglect as well as some evidence of aphasia with perseveration. CTA of the head and neck showed no large vessel
occlusions.
Continuous EEG showed some slowing the beginning the study then normalized with some excess beta activity most likely due to her home benzodiazepines. No seizures or clear interictal epileptiform discharges were seen. Patient with no previous
history of seizure or family history of seizure or significant alcohol use.
Improvement in mental status the a.m. of 03/26 and doing well AM of 03/27
She was placed on antibiotics for empiric treatment of possible infection given the low-grade fever and mild leukocytosis
Mildly abnormal UA with growth of E. coli from urine culture
Suspect she may have been in early stages of UTI causing encephalopathy and seizure given the history of multiple sclerosis
Not feeling that she would necessarily need long-term anti seizure medications with high likelihood of metabolic disturbance provoking it
Subjective/Objective
Subjective Data
Date of Service: March 28, 2024
No acute events, discussed the brain MRI as no new findings as reassuring, discussed short term treatment with antiseizure medication Keppra
Objective Data
Vital Signs
Temp Pulse Resp BP Pulse Ox
97.9 F 79 14 129/69 98
03/28/24 03:20 03/28/24 03:20 03/28/24 03:20 03/28/24 03:20 03/28/24 03:20
Lab Results
03/27/24 06:19
03/27/24 06:19
Sodium 139 mmol/L (135-145) 03/27/24 06:19
Potassium 3.6 mmol/L (3.5-5.1) 03/27/24 06:19
BUN 12 mg/dl (7-17) 03/27/24 06:19
Glucose 85 mg/dl (70-99) 03/27/24 06:19
Calcium 9.7 mg/dl (8.4-10.2) 03/27/24 06:19
Patient Allergies
No Known Allergies Allergy (Verified 03/24/24 20:34)
Review of Systems
-
History Source: Patient
All other systems: Reviewed and negative
Constitutional: No Symptoms
EENT: No Symptoms Reported
Respiratory: No Symptoms
Cardiac: No Symptoms
Abdomen/GI: No Symptoms
Genitourinary: No Symptoms
Musculoskeletal: No Symptoms
Skin: No Symptoms
Neuro: See existing Neuro Note
Endocrine: No Symptoms
Hematologic / Lymphatic: No Symptoms
Allergy / Immunology: No Symptoms
Physical Exam
-
General: Comfortable
Eyes: No Ptosis
HEENT: Normocephalic
Neck: No Bruits Bilaterally
Respiratory: Clear to Auscultation
Cardiac: Regular Rhythm
GI: Normal Bowel Sounds
Skin: Unremarkable
Extremities: No Clubbing
Psych: Unremarkable
Extended Neurological Exam
Mood & Affect: Mood Unremarkable and Affect Unremarkable
Attention Span & Concentration: Awake, Alert and Interactive
Memory: Unremarkable
Tremor: Hand Tremor Absent
Involuntary Movement: None
Speech: Quality Unremarkable and Quantity Unremarkable; Negative Expressive Aphasia, Receptive Aphasia or Dysarthric
Cranial Nerve II: Left Eye: Pupillary Reactivity Unremarkable and Pupillary Size Unremarkable
Cranial Nerve II: Right Eye: Pupillary Reactivity Unremarkable and Pupillary Size Unremarkable
Cranial Nerves III, IV, : Extraocular Movement: Extraocular Movement Full in all Directions
Cranial Nerve XII: Tongue Protusion: Midline
Muscle Strength, Overall: Other (upper extremity strength normal 5/5 arm flexion and abduction no drift, lower extremities bilaterally spasticity and weakness 2/5 movements)
Pronator Drift: No Drift in Upper Extremities
Data Reviewed
-
MRI Head: Report Reviewed and Image Reviewed
EEG: Report Reviewed
[2024-03-28] MEDS: KEPPRA 500 MG PO (09:08)
[2024-03-28] MEDS: XANAX 1 MG PO (09:09)
[2024-03-28] MEDS: THERAGRAN 1 TABLET PO (09:09)
[2024-03-28] MEDS: ALDACTONE 100 MG PO (09:09)
[2024-03-28] MEDS: KEFLEX 500 MG PO (09:09)
[2024-03-28] MEDS: VITAMIN D3 (cholecalciferol) 50 MCG PO (09:10)
[2024-03-28] MEDS: ZANAFLEX 2 MG PO (09:10)
[2024-03-28] MEDS: DETROL LA 2 MG PO (09:10)
[2024-03-28] MEDS: LIORESAL 20 MG PO (09:10)
[2024-03-28] MEDS: VITAMIN B-12 1000 MCG PO (09:11)
--- NOTE | 2024-03-28 10:33 | W.DS.TRANS ---
DC Summary - Sanitation Technician
-
Discharge Instructions:
Discharge Diagnosis/Procedures New onset seizure, auditory hallucinations,
multiple sclerosis flare, Escherichia coli
urinary tract infection
Diet As tolerated,Regular
Activity As tolerated
Driving Restrictions As prior to admission
Bathing Restrictions None
Instructions:
Stand-Alone Forms:
Changes to Home Medications: Yes
Discharge Medications:
DC Medications w/original date entered in [employer]
citalopram 20 mg tablet 20 mg PO BID Mental Health/Anxiety 06/26/22
spironolactone 100 mg tablet 100 mg PO DAILY Fluid Retention/Swelling 06/26/22
tizanidine 2 mg tablet 2 mg PO TID Muscle Spasms 06/26/22
tolterodine 2 mg capsule,extended release 24 hr 2 mg PO BID Urinary Issue 06/26/22
trazodone 50 mg tablet 50 mg PO HS Sleep 06/26/22
baclofen 20 mg tablet 20 mg PO BID 30 days #60 tabs 07/08/22
Lion's Walter 2,100 mg PO BID Supplement 03/24/24
Turmeric Gummies 250 mg PO DAILY Supplement 03/24/24
alprazolam 0.5 mg tablet 1 mg PO BID Mental Health/Anxiety 03/24/24
cholecalciferol (vitamin D3) 50 mcg (2,000 unit) tablet (Vitamin D3) 50 mcg PO DAILY Supplement 03/24/24
cyanocobalamin (vitamin B-12) 1,000 mcg tablet (Vitamin B-12) 1,000 mcg PO DAILY Supplement 03/24/24
magnesium 250 mg tablet 500 mg PO DAILY Supplement 03/24/24
multivitamin 1 tab PO DAILY Supplement 03/24/24
cephalexin 500 mg capsule 500 mg PO BID #10 caps 03/28/24
levetiracetam 500 mg tablet (Keppra) 500 mg PO BID #60 tabs 03/28/24
Home Medication Changes
cephalexin 500 mg capsule 500 mg PO BID #10 caps 03/28/24
levetiracetam 500 mg tablet (Keppra) 500 mg PO BID #60 tabs 03/28/24
Pending Results: No
Total time spent discharging patient (in min): 45
--- NOTE | 2024-03-28 11:26 | CM ---
CM met with pt and spouse bedside- anticipate dc today
VN recommended- pt in agreement with therapy, does not want SN
Referral made to [facility] via [facility] per her request
IMM verbally completed- copy provided
Discharge Disposition- home with [facility]- spouse transport
Fax-[phone]
--- NOTE | 2024-03-28 11:41 | W.DCSUMMARY ---
Discharge Summary
Discharge Data
Date of Admission: 03/25/24
Date of Discharge: 03/28/24
-
Pending Results: No
Hospital Course
49-year-old female with a known history of multiple sclerosis is admitted with a suspected new onset seizure felt to be after initial workup possibly in relation to triggered by a new E. coli urinary tract infection she presented with auditory
hallucinations and was also seen by psych who thought this was an encephalopathy from her acute illness. An MRI of the brain showed significant severe multiple sclerosis changes. She was placed on empiric Keppra and neurology was consulted and
recommendation was for 4 weeks of anticonvulsant therapy with Keppra at discharge
SEVERE DEMYELINATING DISEASE which predominantly involves the periventricular white matter of the frontal and parietal lobes consistent with SEVERE MULTIPLE SCLEROSIS demonstrating little interval change from 10/08/2020.
Urinary tract infection grew out E. coli and patient was transition to cephalexin based on sensitivity results which will be completed another 5 days after discharge.
Only change in her usual other medication regime was suggestion to increase baclofen to 3 times a day instead of twice a day if lower extremity spasticity continues.
Follow-up with prior neurologist
Discharge Plan
-
Patient Disposition: Home with Home Care
Discharge Diagnosis/Procedures: New onset seizure, auditory hallucinations, multiple sclerosis flare, Escherichia coli urinary tract infection
Condition: Fair
Diet: As tolerated and Regular
Activity: As tolerated
Driving Restrictions: As prior to admission
Bathing Restrictions: None
Referrals:
Cisco Herrera MD [Active] - in three to four weeks
Jayda Teague CRNP [Family Provider] - in less than 1 week
Additional Discharge Medication Instructions: If lower extremity spasticity continues can increase baclofen to 20 mg 3 times a day instead of twice a day
Prescriptions:
New
cephalexin 500 mg capsule
500 mg PO BID Qty: 10 0RF
levetiracetam [Keppra] 500 mg tablet
500 mg PO BID Qty: 60 0RF
Continued
tolterodine 2 mg capsule,extended release 24hr
2 mg PO BID
tizanidine 2 mg tablet
2 mg PO TID
trazodone 50 mg tablet
50 mg PO HS
spironolactone 100 mg tablet
100 mg PO DAILY
citalopram 20 mg tablet
20 mg PO BID
baclofen 20 mg tablet
20 mg PO BID 30 Days Qty: 60 0RF
multivitamin Tablet
1 tab PO DAILY
cyanocobalamin (vitamin B-12) [Vitamin B-12] 1,000 mcg Tablet
1,000 mcg PO DAILY
magnesium 250 mg Tablet
500 mg PO DAILY
cholecalciferol (vitamin D3) [Vitamin D3] 50 mcg (2,000 unit) Tablet
50 mcg PO DAILY
Lion's Walter
2,100 mg PO BID
Turmeric Gummies 250 MG
250 mg PO DAILY
alprazolam 0.5 mg tablet
1 mg PO BID
Patient Comments:
03/24/2024: LAST FILLED 03/24/24, 120 TABS FOR 30 DAYS FROM [id number]
Discharge Orders:
Discharge Patient (As Directed); Ordered 03/28/24
Ordered By: Btuch Feliciano
Discharge Date and Time
Print Language: SWISS
[2024-03-28 13:07] VITALS: BP 109/63
== END 2024-03-28 15:16 | disposition home health service (06) | DRG 59 ==
LOC: 4 WEST ACU 00:52
PROVIDERS: Internal Medicine; Physician Assistant; ADMITTING PHYSICIAN Internal Medicine; ATTENDING PHYSICIAN Internal Medicine; CONSULT PHYSICIAN Student in an Organized Health Care Education/Training Program; EMERGENCY PHYSICIAN Emergency Medicine; FAMILY PHYSICIAN Nurse Practitioner Adult Health; OTHER PHYSICIAN Psychiatry & Neurology Psychiatry
DX: G35 Multiple sclerosis (principal); N39.0 Urinary tract infection, site not specified; R44.0 Auditory hallucinations; Z11.52 Encounter for screening for COVID-19; G37.9 Demyelinating disease of central nervous system, unspecified; E87.6 Hypokalemia; G83.84 Todd's paralysis (postepileptic); B96.20 Unspecified Escherichia coli [E. coli] as the cause of diseases classified elsewhere; R56.9 Unspecified convulsions
CPT/HCPCS: 51701; 70450; 70496; 70498; 70553; 71046; 80048; 80053; 81003; 81015; 82962; 83735; 84145; 85025; 85027; 87040; 87086; 87088; 87186; 87502; 87811; 92610; 93005; 95714; 96374; 97116; 97163; 97167; 99285; A9575; Q9967

== ENCOUNTER 2024-05-08 00:37 | Observation (INO) | payer MEDICARE, OTHER, SELFPAY ==
[2024-05-07 21:53] VITALS: BP 104/70
[2024-05-07] MEDS: VALIUM INJECTION 5 MG IV (22:21)
[2024-05-07] MEDS: DILAUDID 1 MG IV (22:21)
--- NOTE | 2024-05-07 22:23 | ED.GENMED ---
History of Present Illness
General
Chief Complaint: Extremity Pain (non-traumatic)
Source: patient
Exam Limitations: none
Time Seen by Provider: 05/07/24 22:07
Travel History
Have you had any contact with someone who has COVID-19?: No
Do you have any symptoms of coronavirus? Fever > 100 degrees, chills, cough, shortness of breath, sore throat, loss of taste or smell, muscle aches, or headache?: No
History of Present Illness
History of Present Illness:
See MDM
Past History
Past History
ED Past Medical History: Other (multiple sclerosis)
ED Past Surgical History:
Patient has exhibited threatening behavior?: No
PSI?: No
Social History
Tobacco: Non-smoker
Drug: None
Personal:
Living: with family
Employment: Disabled
Family History
Family History: Other (reviewed and noncontributory)
Phy Exam
Physical Exam
Physical Exam:
See MDM
Course
Orders/Labs/Results
Orders:
Orders
05/07/24 22:14
Straight cath- Treatment ONCE
HYDROmorphone [Dilaudid] 1 mg IV NOW STA
diazePAM [Valium Injection] 5 mg IV NOW STA
05/07/24 22:45
Complete Blood Count/With Diff Urgent
Comprehensive Metabolic Panel Urgent
Urinalysis Reflex To Culture Urgent
Date Specimen was Collected: 05/07/24
Time Specimen was Collected: 22:20
Urine Microscopic Reflex Cult Urgent
Abnormal Lab Results
05/07/24
22:45
Hct 36.4 L %
(37.0-47.0)
MPV 10.9 H fL
(7.4-10.4)
Lymphocytes % 17.3 L %
(20.5-51.1)
Carbon Dioxide 32 H mmol/L
(22-30)
Glucose 116 H mg/dl
(70-99)
Leukocyte Esterase Rfl Trace A
(Negative)
Urine Bacteria (Reflex) Few A
(Negative)
05/07/24 22:45
05/07/24 22:45
Vital Signs
Initial and Last Documented VS:
Initial Vital Signs
Temp Pulse Resp BP Pulse Ox
98.6 F 81 18 104/70 93
05/07/24 21:53 05/07/24 21:53 05/07/24 21:53 05/07/24 21:53 05/07/24 21:53
Last Documented Vital Signs
Temp Pulse Resp BP Pulse Ox
98.6 F 81 18 92/62 93
05/07/24 21:53 05/07/24 21:53 05/07/24 21:53 05/07/24 23:00 05/07/24 21:53
MDM/Problems Addressed
Differential Diagnosis Includes:
HPI and MDM Narrative:
49-year-old female presenting for evaluation of leg weakness and leg spasm. She has severe MS. She was admitted 2 months ago for MS flare related to UTI. Over the past few days, her legs have gotten weaker. She is having trouble getting into
bed. Now she is unable to walk unable to dorsiflex
Given her significant pain and spasm, will give Dilaudid and Valium. Given her inability to walk, will admit for MS flare
Physical exam
General: Uncomfortable, appears malnourished
HEENT: protecting airway
Neck: appears supple
CV: No evidence of cyanosis
Resp: No accessory muscle use
Abd: Non-distended
Extremities: Both legs stuck in plantarflexion. Decreased muscle strength with dorsiflexion. Sensation and pulses grossly intact
Neuro: alert
Psych: Normal affect
Skin: Intact
Problems Addressed including Acute and Chronic Conditions affecting care:
1. MS flare
Acuity: acute
Prognosis: unstable
Details: Will look for urinary tract infection
Updates
On reassessment after pain medicine, she is feeling better.
Differential Diagnosis (but not limited to): UTI, MS flare
Testing considered: CT head
Drug therapy (if applicable): OTC meds, please see d/c instruction regarding Rx drugs
Amount and/or Complexity of Data Reviewed
Clinical info obtained from: Patient
External data reviewed: recently admitted for MS flare secondary to urinary tract infection
Labs I independently reviewed (but not limited to): White blood cell count normal
Radiology: N/A
Pulse Ox: not hypoxic
EKG independently reviewed: N/A
[place]: N/A
Critical Care: N/A
Risk of Complication:
Social Determinants of health: Good social support
Discussed with other providers: Hospitalist
Escalation of Care includes Admit/Obs: Given the concern for MS flare and trouble walking, will admit
Occasional wrong word or 'sound a like' substitutions may have occurred due to the inherent limitations of voice recognition software. Read the chart carefully and recognize, using context, where substitutions have occurred.
*Critical Care Note
Total Time (30-74mins, 75-104mins- exclusive of procedures): Not Applicable
ED Attending Note
-
Portions of this chart may have been created with voice recognition software.� Occasional wrong word or��sound alike� substitutions may have occurred due to the inherent limitations of voice recognition software.
Discharge Plan
Departure
Patient Disposition: Admit
Date of Disposition: 05/07/24
Time of Disposition: 23:29
Admit to: Med/Surg
Presentation/result/management discussed w/ accepting MD/DO: Hospitalist
Discharge Problem:
Multiple sclerosis
Prescriptions:
No Action
tolterodine 2 mg capsule,extended release 24hr
2 mg PO BID
tizanidine 2 mg tablet
2 mg PO TID
trazodone 50 mg tablet
50 mg PO HS
spironolactone 100 mg tablet
100 mg PO DAILY
citalopram 20 mg tablet
20 mg PO BID
baclofen 20 mg tablet
20 mg PO BID 30 Days Qty: 60 0RF
multivitamin Tablet
1 tab PO DAILY
cyanocobalamin (vitamin B-12) [Vitamin B-12] 1,000 mcg Tablet
1,000 mcg PO DAILY
magnesium 250 mg Tablet
500 mg PO DAILY
cholecalciferol (vitamin D3) [Vitamin D3] 50 mcg (2,000 unit) Tablet
50 mcg PO DAILY
Lion's Walter
2,100 mg PO BID
Turmeric Gummies 250 MG
250 mg PO DAILY
alprazolam 0.5 mg tablet
1 mg PO BID
Patient Comments:
03/24/2024: LAST FILLED 03/24/24, 120 TABS FOR 30 DAYS FROM [id number]
cephalexin 500 mg capsule
500 mg PO BID Qty: 10 0RF
levetiracetam [Keppra] 500 mg tablet
500 mg PO BID Qty: 60 0RF
Referrals:
UNKNOWN - PT NOT,INTERVIEWE [Family Provider] -
Interventions
Interventions:
*Risk Screen - Suicide Last Done: 05/07/24 22:04
*General Assessment Last Done: 05/07/24 22:04
*Neglect/Abuse Screening Last Done: 05/07/24 22:04
ED- Fall Risk Assessment Last Done: 05/07/24 23:00
ED-Skin Assessment Last Done: 05/07/24 22:10
ED-Peripheral Vascular Assessment Last Done: 05/07/24 22:10
ED-Musculoskeletal Assessment Last Done: 05/07/24 22:10
Discharge Date and Time
Print Language: POLISH
[2024-05-07 23:00] VITALS: BP 92/62
[2024-05-07 23:02] LABS: % Basophils 1.2 % (0-2); % Eosinophils 1.7 % (0-6); % Immature Granulocytes 0.3 % (0-0.5); % Lymphocytes 17.3 % (20.5-51.1); % Monocytes 5.2 % (1.7-9.3); % Neutrophils 74.3 % (42.2-75.2); Absolute Basophils 0.1 10^3/uL (0-0.2); Absolute Eosinophils 0.1 10^3/uL (0-0.7); Absolute Lymphocytes 1.3 10^3/uL (1.2-3.4); Absolute Monocytes 0.4 10^3/uL (0.1-0.6); Absolute Neutrophils 5.7 10^3/uL (1.4-6.5); Hematocrit 36.4 % (37.0-47.0); Hemoglobin 12.7 g/dL (12.0-16.0); Mean Corp Hgb Conc. 34.9 g/dL (33.0-37.0); Mean Corpuscular Hgb 29.3 pg (27.0-31.0); Mean Corpuscular Volume 83.9 fL (81.0-99.0); Mean Platelet Volume 10.9 fL (7.4-10.4); Nucleated Red Blood Cells % 0 %; Platelet Count 226 10^3/uL (130-400); Red Blood Cell Count 4.34 10^6/uL (4.20-5.40); Red Cell Dist. Width 12.2 % (11.5-14.5); Urine Albumin Negative (Neg - Trace); Urine Bilirubin Negative (Negative); Urine Character Clear (Clear); Urine Color Straw; Urine Glucose Negative (Negative); Urine Ketone Negative (Negative); Urine Leukocyte Trace (Negative); Urine Nitrite Negative (Negative); Urine Occult Blood Negative (Negative); Urine Urobilinogen Negative (Neg - 1+); White Blood Cell Count 7.6 10^3/uL (4.8-10.8)
[2024-05-07 23:12] LABS: Urine Bacteria Few (Negative); Urine Squamous Cell 0-2 /LPF (Few); Urine White Cell 0-2 /HPF (0-5)
[2024-05-07 23:13] LABS: Urine Red Blood Cell 0-2 /HPF (0-2)
[2024-05-07 23:18] LABS: ALT (SGPT) 13 U/L (0-35); AST (SGOT) 21 U/L (14-36); Albumin 4.3 g/dl (3.5-5.0); Alkaline Phosphatase 77 U/L (38-126); Blood Urea Nitrogen 11 mg/dl (7-17); Calcium 9.6 mg/dl (8.4-10.2); Carbon Dioxide 32 mmol/L (22-30); Chloride 101 mmol/L (98-107); Glucose 116 mg/dl (70-99); Sodium 138 mmol/L (135-145); Total Bilirubin 0.3 mg/dl (0.2-1.3); Total Protein 6.8 g/dl (6.3-8.2); eGFR > 60.00
--- NOTE | 2024-05-08 00:17 | HPS.HSE ---
Family Physician
-
Family Physician: INTERVIEWE UNKNOWN - PT NOT
Chief Complaint
-
Bilateral leg weakness
History of Present Illness
This is a 49-year-old female with past medical history of multiple sclerosis, appendicitis, perforation status post appendectomy presenting to the emergency department with 2 days of leg spasms and weakness.
She was admitted about 6 weeks ago with similar findings but had seizures at that time and E.coli UTI. MRI showed increased white matter findings c/w MS. Patient was placed on a course of Keppra after discharge from hospital. She appears to have
been stable up until now. Her spams are not new and she is chronically on baclofen. Today she had worse weakness and was unable to ambulate as usual with her walker. She denies any numbness or tingling. She denies any urinary symptoms, GI
symptoms, cough, fevers or chills. She denies any new medications. She was not treated with steroids on her last visit as symptoms were thought to be secondary to the infection.
On arrival in ED. she was afebrile, hemodynamically stable with initial blood pressure of 90/60, pulse was 81 and oxygen saturation was 96% on room air. CBC within normal limits. Chemistries unremarkable. U/A is clear.
Medical History
Past Medical History
Past Medical History: Reports Other (Multiple Sclerosis)
Past Surgical History: Reports Appendectomy
Social History
Tobacco: Non-smoker
Alcohol: None
Drug: None
Personal:
Living: With Family
Employment: Disabled
Family History
Family History: Not pertinent
Allergies / Home Medications
Allergies reflects when Allergies were last updated in [employer].
Home Medications with original date entered in [employer]
Allergy/Medication List:
Allergies
Allergy/AdvReac Type Severity Reaction Status Date / Time
No Known Allergies Allergy Verified 03/24/24 20:34
Home Medications
citalopram 20 mg tablet 20 mg PO BID Mental Health/Anxiety 06/26/22
spironolactone 100 mg tablet 100 mg PO DAILY Fluid Retention/Swelling 06/26/22
tizanidine 2 mg tablet 2 mg PO TID Muscle Spasms 06/26/22
tolterodine 2 mg capsule,extended release 24 hr 2 mg PO BID Urinary Issue 06/26/22
trazodone 50 mg tablet 50 mg PO HS Sleep 06/26/22
baclofen 20 mg tablet 20 mg PO BID 30 days #60 tabs 07/08/22
Lion's Walter 2,100 mg PO BID Supplement 03/24/24
Turmeric Gummies 250 mg PO DAILY Supplement 03/24/24
alprazolam 0.5 mg tablet 1 mg PO BID Mental Health/Anxiety 03/24/24
cholecalciferol (vitamin D3) 50 mcg (2,000 unit) tablet (Vitamin D3) 50 mcg PO DAILY Supplement 03/24/24
cyanocobalamin (vitamin B-12) 1,000 mcg tablet (Vitamin B-12) 1,000 mcg PO DAILY Supplement 03/24/24
magnesium 250 mg tablet 500 mg PO DAILY Supplement 03/24/24
multivitamin 1 tab PO DAILY Supplement 03/24/24
cephalexin 500 mg capsule 500 mg PO BID #10 caps 03/28/24
levetiracetam 500 mg tablet (Keppra) 500 mg PO BID #60 tabs 03/28/24
Review of Systems
-
Constitutional: Reports No Symptoms
EENT: Reports No Symptoms
Respiratory: Reports No Symptoms
Cardiac: Reports No Symptoms
Abdomen/GI: Reports No Symptoms
: Reports No Symptoms
Musculoskeletal: Reports No Symptoms
Skin: Reports No Symptoms
Neurological: Reports Weakness
Endocrine: Reports No Symptoms
Hematologic/Lymphatic: Reports No Symptoms
Psych: Reports No Symptoms
Physical Exam
Vital Signs
Vital Signs
Temp Pulse Resp BP Pulse Ox
98.6 F 81 18 92/62 93
05/07/24 21:53 05/07/24 21:53 05/07/24 21:53 05/07/24 23:00 05/07/24 21:53
Physical Exam
General: Appears Chronically Ill
HEENT: NormoCephalic, Anicteric, Moist mucous membranes, Atraumatic and PERRLA
Respiratory: Clear
Cardiac: S1/S2 and Regular Rhythm
Breast: Deferred by me
GI: Soft, Non Tender and Non Distended
Rectal: Deferred by Provider
Genito-urinary: Deferred by me
Musculoskeletal: No Clubbing, No Cyanosis and No Edema
Skin: Warm
Neuro: AO x 3, Cranial Nerves Intact, No Sensory Deficits and Other (paraplegia)
Hematologic/Lymphatic: No Lymphadenopathy
Psych: Calm
Laboratory Results
-
05/07/24 22:45
05/07/24 22:45
Laboratory Results
Total Bilirubin 0.3 mg/dl (0.2-1.3) 05/07/24 22:45
AST 21 U/L (14-36) 05/07/24 22:45
ALT 13 U/L (0-35) 05/07/24 22:45
Alkaline Phosphatase 77 U/L (38-126) 05/07/24 22:45
Data Reviewed
-
Lab Data: Labs Reviewed by me
Old Records: Reviewed
Impression/Plan
-
IMPRESSION:
49 y.o female with h/o MS, with leg spasms x 2 days, bilateral leg weakness and ambulatory dysfunction. Known MS on MRI in February with concern for exacerbation. H/O seizure disorder. No signs of acute infection.
PLAN:
1. MS - Possible MS flair. Patient currently without new symptoms. No signs of UTI, pneumonia or GI infection on history, exam or labs. Meds unchanged. Patient currently not on disease modifying agents. MRI obtained last month.
- admit to med/surg obs
- neurology consult
- continue baclofen w/ valium prn spasms, pain control
- continue AED Keppra 500 bid
- initiation of steroids per neurology
DVT PPX with lovenox sq
Full Code
[2024-05-08 00:30] VITALS: BP 95/66
[2024-05-08 02:20] VITALS: BP 108/66; BMI 18.8
[2024-05-08] MEDS: DILAUDID 0.5 MG IV ×5 (02:45→21:47)
[2024-05-08 07:24] VITALS: BP 111/63
[2024-05-08] MEDS: DETROL LA 2 MG PO ×2 (08:06→21:34)
[2024-05-08] MEDS: ALDACTONE 100 MG PO (08:06)
[2024-05-08] MEDS: XANAX 1 MG PO ×2 (08:07→21:34)
[2024-05-08] MEDS: ZANAFLEX 2 MG PO (08:07)
[2024-05-08] MEDS: KEPPRA 500 MG PO (08:07)
[2024-05-08] MEDS: VITAMIN B-12 1000 MCG PO (08:07)
[2024-05-08] MEDS: LIORESAL 20 MG PO ×2 (08:07→21:33)
[2024-05-08] MEDS: CELEXA 20 MG PO ×2 (08:07→21:33)
[2024-05-08] MEDS: THERAGRAN 1 TABLET PO (08:07)
[2024-05-08] MEDS: VITAMIN D3 (cholecalciferol) 50 MCG PO (08:07)
--- NOTE | 2024-05-08 09:30 | CON.NEURO ---
Neuro Assessment/Plan
Assessment
IMPRESSIONS/RECOMMENDATIONS:
Abrupt decline in ongoing gait dysfunction
Presumed to be secondary to multiple sclerosis with possible exacerbation
Patient has utilized gabapentin previously
Plan
Recommendations:
Case management consultation
Discontinue levetiracetam
Discontinue morphine for leg spasms
Use baclofen 20 mg TID
Increase tizanidine from 2 mg 3 times a day to dosing of 4 mg 3 times a day
Patient to initiate anti-MS medication as outpatient. Options reviewed again with her and
Patient likely would benefit from outpatient MRI of thoracic and lumbar spines based on gait dysfunction
Patient likely would benefit from outpatient urological evaluation
Rehabilitation evaluations
Generalized anxiety disorder with likely underlying reactive depression
Patient eventually will benefit from psychiatric evaluation
Will continue to follow patient. Thank you.
Consultation
Order
Date of Consultation: 05/08/24
Requesting Provider: Hospitalist
Reason for Consult: Possible MS exacerbation
Subjective/Objective
Subjective Data
Date of Service: May 08, 2024
Adapted from my consultative note September 2020:
Right handed
'In 1998, the patient was diagnosed with multiple sclerosis, relapsing remitting type. Unfortunately although the patient did utilize interferon beta-1a and glatiramer acetate, she was without medication since 2009. The patient was considering
initiating the use of Siponimod in January 2020 at which time she abandoned those plans due to the outbreak of COVID-19. It is not clear the patient has utilized medications beyond medical marijuana and benzodiazepines for treatment of symptoms.
Patient is not clearly received physical therapy or occupational therapy in the past.
Patient presented this hospital with new worsening of dysphagia. 1 day ago, when the patient presented, she reported that she had already been experiencing approximately 2 weeks worth of dysphagia which is been gradually worsening. Patient suggests
that she is not aware of improving or worsening factors. She is not having difficulty with liquids or with solids in particular however. She does not feel that food is stuck in her throat. For this issue, the patient has had prior evaluations at a
local hospital system. The results of that testing are unclear at this time. The patient however suggest that she was unsatisfied with the evaluation and that no new therapies were initiated. She suggests that she did have swallowing testing
performed at that other facility as an outpatient. It is unclear if the patient received speech therapy in the past.
Patient also suggest that she's been experiencing approximately 1 year's worth of difficulty with gait. She does also report experiencing significant sense of dizziness.'
IMPRESSION / RECOMMENDATIONS:
Abrupt decline in ongoing dysphagia
Presumed to be secondary to multiple sclerosis with possible exacerbation secondary to urinary tract infection
New MRI of brain and cervical spine imaging performed 10/08/2020 indicate new enhancing lesions which are likely based on the patient having no treatment for greater than 10 years
Data from [facility] indicates no objective findings of swallowing difficulty
Patient has utilized gabapentin as well as baclofen prior to admission
Recommendations:
Obtain records from local neurologist
Complete high-dose steroids 3 day course
Discontinue morphine for leg spasms
use baclofen for leg discomfort, if able to swallow
patient to initiate anti-MS medication as outpatient. Her preference is Siponimod
Patient likely would benefit from outpatient MRI of thoracic and lumbar spines based on gait dysfunction
Patient likely would benefit from outpatient urological evaluation
Rehabilitation evaluations
Generalized anxiety disorder with likely underlying reactive depression
Patient eventually will benefit from psychiatric evaluation'
Subsequently, patient was lost to follow-up. She then returned this hospital as below.
Adapted from my esteemed colleagues' consultative notes from March 25, 2024:
'This is a 49-year-old female with a PMH of multiple sclerosis who has presented to the hospital on 03/24/24 with report of increased bilateral lower extremity spasms and pain. She vomited twice at home and her brought her to the ER for
evaluation. On arrival in the ER, patient had a witness generalized seizure lasting 1 minutes. Upon resolution of seizure activity she was noted to be in a post-ictal state and have a left-sided Ld's paralysis with left hemineglect that resolved.
She was loaded with levetiracetam 1500mg IV. Temp was 100.[address] head was obtained and is negative for any acute findings, demonstrates chronic demyelinating white matter lesions compatible with MS. CXR demonstrates a mild right pleural
effusion. This morning (03/25/24), patient was last seen at her baseline around 0300. Around 0745 patient was woken from sleep by nursing staff and was noted to be aphasic/perseverating with RLE drift promoting a stroke alert to be called. NIHSS is a
4 for mild aphasia, unable to answer orientation questions correctly, and RLE drift. She was taken for CT head and CTA head/neck which are negative for any acute abnormalities. Patient's perseveration/confusion thought to be due to a post-ictal
state not due to stroke and NIHSS is<6 so she is not a candidate for TNK/IAT. Patient denies any headache, dizziness, vision changes, numbness, chest pain, palpitations, and shortness of breath. She endorses difficultly with speech/frustration and
chronic issues with dysphagia. BLE are weak and stiff at baseline.
She is followed by Neurology Dr. Mace for her MS. She reports being diagnosed in 1998 and she has been using a cane and/or wheelchair for ambulation since that time. She is not currently taking any DMTs for an unclear reason. She reports being on
'all of them' in the past. She has a chronic overactive bladder with intermittent urinary incontinence. She denies any recent fevers, illness, sick exposures, and dysuria. She denies any history of seizure, head/neck trauma, or family history of
seizure.
At the end of that hospitalization, the patient was found to have a possible mild urinary tract infection producing encephalopathy and seizure-like activity. The patient was instructed to discontinue levetiracetam 4 weeks after initiation.
Continuous EEG performed at that time failed to demonstrate epileptiform activity.
The patient returned to this hospital's emergency department last evening due to worsening in gait and leg spasms. Patient was provided with diazepam and hydromorphone. Locking of legs started months ago, worsening 1 day ago. Has had minimal use of
Natalizumab (unclear time-frame of use), Cladribine ('couple of days').
Spasms are all day in duration since 2 months ago. Bedbound chronically.
No additional seizure-like events.
Objective Data
Vital Signs
Temp Pulse Resp BP Pulse Ox
37.4 C 74 16 108/66 98
05/08/24 07:24 05/08/24 08:06 05/08/24 07:24 05/08/24 08:06 05/08/24 09:18
Lab Results
05/07/24 22:45
05/07/24 22:45
Sodium 138 mmol/L (135-145) 05/07/24 22:45
Potassium 4.0 mmol/L (3.5-5.1) 05/07/24 22:45
BUN 11 mg/dl (7-17) 05/07/24 22:45
Glucose 116 mg/dl (70-99) H 05/07/24 22:45
Calcium 9.6 mg/dl (8.4-10.2) 05/07/24 22:45
Patient Allergies
No Known Allergies Allergy (Verified 03/24/24 20:34)
Review of Systems
-
History Source: Patient and Family
All other systems: Reviewed and negative
EENT: Swallowing Difficulty; Negative Blurry Vision
Respiratory: Negative Trouble Breathing
Cardiac: Negative Chest Pain
Abdomen/GI: Negative Incontinence of Stool
Genitourinary: Frequency and Incontinence
Musculoskeletal: Back Pain; Negative Neck Pain
Neuro: Negative Dizzy or Headache
Physical Exam
-
General: No Apparent Distress and Appears Stated Age
Eyes: Round OU, [place] Conjunctivae and No Ptosis
HEENT: Anicteric and Moist Mucous Membranes
Neck: Full Range of Motion
Respiratory: No Dyspnea
Cardiac: No JVD
GI: Non-distended
Skin: Unremarkable
Extremities: No Clubbing, No Cyanosis and No Edema
Psych: Negative Intact Judgement/Insight
Extended Neurological Exam
Mood & Affect: Depressed
Attention Span & Concentration: Awake, Interactive and Closes Eyes after Stimulation (After approximately 5 seconds); Negative Alert
Memory: Reduced (For specifics regarding multiple sclerosis care)
Tremor: Head Tremor Absent, Distal, Amplitude (low) and With Action
Involuntary Movement: None
Speech: Quality Unremarkable and Quantity Unremarkable
Cranial Nerve II: Left Eye: Pupillary Reactivity Unremarkable, Pupillary Size Unremarkable and Visual Huff Intact
Cranial Nerve II: Right Eye: Pupillary Reactivity Unremarkable, Pupillary Size Unremarkable and Visual Huff Intact
Cranial Nerves III, IV, : Extraocular Movement: Extraocular Movement Full in all Directions
Cranial Nerve VII: Facial Symmetry: Normal Facial Symmetry
Cranial Nerves IX, X: Palate Movement: Palate Elevation Symmetric
Cranial Nerve XI: Shoulder Shrug: Unremarkable
Cranial Nerve XII: Tongue Protusion: Midline
Muscle Strength, Overall: Reduced (4-/5 bilateral LEs) and Otherwise Intact
Muscle Bulk & Tone: Decreased Bulk and Increased Tone (BLEs proximally > distally)
Pronator Drift: No Drift in Upper Extremities and Unable to Assess (drift in LEs)
Deep Tendon Reflexes: Trace Throughout
Touch Sensation: Unremarkable
Coordination: [id number] Testing Unremarkable
Babinski Sign: Absent Bilaterally
Gait & Station: Unable to Assess
Data Reviewed
-
Labs: Report Reviewed
Reviewed with: Physician, Nurse and Patient
Old Records: Summarized
Medications
-
Active Medications
Generic Name Dose Route Start Last Admin
Trade Name Freq PRN Reason Stop Dose Admin
Acetaminophen 650 mg 05/08/24 00:33
Acetaminophen 325 Mg Tablet PO 06/05/24 00:32
Q4HPRN PRN
mild pain/JENKINS/temp> 100.4F
Alprazolam 1 mg 05/08/24 08:00 05/08/24 08:07
Alprazolam 1 Mg Tablet PO 06/05/24 07:59 1 mg
BID LAWRENCE Administration
Baclofen 20 mg 05/08/24 08:00 05/08/24 08:07
Baclofen 20 Mg Tablet PO 06/05/24 07:59 20 mg
BID LAWRENCE Administration
Bisacodyl 10 mg 05/08/24 00:33
Bisacodyl 10 Mg Rectal Suppository RECTAL 06/05/24 00:32
[id number] PRN
constipation
Cholecalciferol 50 mcg 05/08/24 08:00 05/08/24 08:07
Cholecalciferol (Vitamin D3) 50 Mcg Tablet (2,000 Units) PO 06/05/24 07:59 50 mcg
DAILY LAWRENCE Administration
Citalopram Hydrobromide 20 mg 05/08/24 08:00 05/08/24 08:07
Citalopram 20 Mg Tablet PO 06/05/24 07:59 20 mg
BID LAWRENCE Administration
Cyanocobalamin 1,000 mcg 05/08/24 08:00 05/08/24 08:07
Cyanocobalamin 1,000 Mcg Tablet PO 06/05/24 07:59 1,000 mcg
DAILY LAWRENCE Administration
Diazepam 5 mg 05/08/24 00:33
Diazepam 10 Mg/2 Ml Inj IV 06/05/24 00:32
Q8HPRN PRN
spasm
Enoxaparin Sodium 40 mg 05/08/24 18:00
Enoxaparin Sodium 40 Mg/0.4 Ml Syringe SC 06/05/24 17:59
QPM LAWRENCE
Hydromorphone HCl 0.5 mg 05/08/24 00:33 05/08/24 08:02
Hydromorphone 0.5 Mg/0.5 Ml Syringe IV 05/22/24 00:32 0.5 mg
Q4HPRN PRN Administration
severe pain
Levetiracetam 500 mg 05/08/24 08:00 05/08/24 08:07
Levetiracetam 500 Mg Regular Release Tablet PO 06/05/24 07:59 500 mg
BID LAWRENCE Administration
Multivitamins Therapeutic 1 tablet 05/08/24 08:00 05/08/24 08:07
Multivitamin Tablet PO 06/05/24 07:59 1 tablet
DAILY LAWRENCE Administration
Polyethylene Glycol 17 grams 05/08/24 00:33
Polyethylene Glycol Powder 17 Grams Packet PO 06/05/24 00:32
DAILYPRN PRN
constipation
Senna/Docusate Sodium 1 tablet 05/08/24 00:33
Docusate W/Senna (Shellie-Colace) Tablet PO 06/05/24 00:32
BIDPRN PRN
constipation
Sodium Chloride 0 flush 05/08/24 01:00
Sodium Chloride 0.9% (Flush) Syringe IV 06/05/24 00:59
PER PROTOCOL LAWRENCE
Spironolactone 100 mg 05/08/24 08:00 05/08/24 08:06
Spironolactone 25 Mg Tablet PO 06/05/24 07:59 100 mg
DAILY LAWRENCE Administration
Tizanidine HCl 2 mg 05/08/24 08:00 05/08/24 08:07
Tizanidine 2 Mg Tablet PO 06/05/24 07:59 2 mg
TID LAWRENCE Administration
Tolterodine Tartrate 2 mg 05/08/24 08:00 05/08/24 08:06
Tolterodine 2 Mg Extended Release Capsule PO 06/05/24 07:59 2 mg
BID LAWRENCE Administration
Trazodone HCl 50 mg 05/08/24 22:00
Trazodone 50 Mg Tablet PO 06/05/24 21:59
HS LAWRENCE
Home Medications
�Medication �Instructions �Recorded
citalopram 20 mg tablet 20 mg PO BID Mental Health/Anxiety 06/26/22
spironolactone 100 mg tablet 100 mg PO DAILY Fluid 06/26/22
Retention/Swelling
tizanidine 2 mg tablet 2 mg PO TID Muscle Spasms 06/26/22
tolterodine 2 mg capsule,extended 2 mg PO BID Urinary Issue 06/26/22
release 24 hr
trazodone 50 mg tablet 50 mg PO HS Sleep 06/26/22
baclofen 20 mg tablet 20 mg PO BID 30 days #60 tabs 07/08/22
Lion's Walter 2,100 mg PO BID Supplement 03/24/24
Turmeric Gummies 250 mg PO DAILY Supplement 03/24/24
alprazolam 0.5 mg tablet 1 mg PO BID Mental Health/Anxiety 03/24/24
cholecalciferol (vitamin D3) 50 50 mcg PO DAILY Supplement 03/24/24
mcg (2,000 unit) tablet (Vitamin
D3)
cyanocobalamin (vitamin B-12) 1,000 mcg PO DAILY Supplement 03/24/24
1,000 mcg tablet (Vitamin B-12)
magnesium 250 mg tablet 500 mg PO DAILY Supplement 03/24/24
multivitamin 1 tab PO DAILY Supplement 03/24/24
cephalexin 500 mg capsule 500 mg PO BID #10 caps 03/28/24
levetiracetam 500 mg tablet 500 mg PO BID #60 tabs 03/28/24
(Keppra)
Past History
Past History
ED Past Medical History: Seizures and Other (multiple sclerosis, rosacea, psoriasis, insomnia, vitamin D deficiency, dysphagia, overactive bladder, cachexia, gait dysfunction)
ED Past Surgical History: Appendectomy, and Other (Otoplasty)
Patient has exhibited threatening behavior?: No
PSI?: No
Social History
Tobacco: Former smoker
Drug: None
Personal:
Living: with family
Employment: Disabled
Family History
Family History: Other (reviewed and noncontributory)
[2024-05-08] MEDS: VALIUM INJECTION 5 MG IV ×2 (10:38→18:38)
--- NOTE | 2024-05-08 12:03 | W.PN.HOSP.TC ---
Today's Communication/Plan
-
see bold
Assessment / Plan
Assessment / Plan
Gen: NAD, AAOx3, appears chronically ill malnourished.
Eyes: EOMI, PERRLA, no scleral icterus.
Neck: supple.
CV: RRR, +S1/S2, no m/r/g.
Resp: CTAB, no rales, wheezes, or rhonchi.
Abd: +BS, soft, NT, ND
Skin: No rashes.
Neuro: CN 2-12 intact
Psych: Anxious and emotionally distressed
MS:
-with possible flare, presented with leg weakness, leg spasms, ambulatory dysfunction
-appreciate neuro recs
-stop morphine/Keppra
-start Baclofen
-Increase tizanidine
-outpt initiation of multiple sclerosis medication as well as MRI of T and L-spines
Patient's updated at bedside.
FULL/Lovenox
Medically cleared for discharge. Case management aware. That being said, PMR c/s is reasonable and will be done 05/09/24.
Anticipated Discharge: Today
Subjective/Interval History
-
Date of Service: May 08, 2024
Patient complains of pain and spasm in her lower extremities.
Objective Data
-
Vital Signs:
Vital Signs
Temp Pulse Resp BP Pulse Ox
99.3 F 74 16 108/66 98
05/08/24 07:24 05/08/24 08:06 05/08/24 07:24 05/08/24 08:06 05/08/24 09:18
[2024-05-08 15:08] VITALS: BP 108/62; PULSE 77; O2SAT 93
[2024-05-08 15:22] VITALS: BP 98/68
--- NOTE | 2024-05-08 15:55 | CM ---
Initial assessment completed at bedside.
Pt is a 49yr old female admitted on OBS with MS exacerbation
SW issued OBS verbally and copy on chart.
Pt at baseline lives with her and son in a 2 story home with 2 steps to enter.
Per pt, she is mostly home bound and spends her days in her room on the second floor.
Pt uses a RW, W/C, shower chair, and grab bars. Per pt, she is having locked knees and total weakness.
Per does aide when needed, though she is usually able to ambulate short distances to the bathroom and back.
Pt has been to [facility] and has used [facility].
PCP; Jayda Carlos from [facility]
Pharm; [facility]
PLAN; Will have PMR and PT/OT consults
[2024-05-08] MEDS: ZANAFLEX 4 MG PO ×2 (16:15→21:33)
[2024-05-08] MEDS: LOVENOX 40 MG SC (17:46)
[2024-05-08] MEDS: DESYREL 50 MG PO (21:34)
[2024-05-08 23:17] VITALS: BP 97/59
[2024-05-09] MEDS: DILAUDID 0.5 MG IV ×6 (01:49→21:39)
[2024-05-09] MEDS: VALIUM INJECTION 5 MG IV ×2 (03:21→11:25)
[2024-05-09 07:00] VITALS: BP 125/74
[2024-05-09] MEDS: TYLENOL PO (08:00)
--- NOTE | 2024-05-09 08:00 | W.PN.HOSP.TC ---
Today's Communication/Plan
-
see bold
Assessment / Plan
Assessment / Plan
Gen: NAD, AAOx3, appears chronically ill malnourished.
Eyes: EOMI, PERRLA, no scleral icterus.
Neck: supple.
CV: remains RRR, +S1/S2, no m/r/g.
Resp: CTAB, no rales, wheezes, or rhonchi.
Abd: +BS, soft, NT, ND
Skin: No rashes.
Neuro: CN 2-12 intact, 1/5 strength B/L LEs
Psych: mildly anxious
MS:
-with possible flare, presented with leg weakness, leg spasms, ambulatory dysfunction
-appreciate neuro recs
-morphine/Keppra stopped
-Baclofen started, tizanidine increased
-outpt initiation of multiple sclerosis medication as well as MRI of T and L-spines
Patient's updated at bedside.
FULL/Lovenox
Medically cleared for discharge pending PMR eval. Case management aware.
Anticipated Discharge: Today
Subjective/Interval History
-
Date of Service: May 09, 2024
Patient complains of lower extremity pain.
Objective Data
-
Vital Signs:
Vital Signs
Temp Pulse Resp BP Pulse Ox
98.0 F 83 17 125/74 97
05/09/24 07:00 05/09/24 07:00 05/09/24 07:00 05/09/24 07:00 05/09/24 07:00
I&O
05/08/24 05/09/24 05/10/24
06:59 06:59 06:59
Intake Total 1440 / 1440
Output Total 1230 / 1230
Balance 210 / 210
[2024-05-09] MEDS: LIORESAL 20 MG PO ×2 (09:38→19:35)
[2024-05-09] MEDS: ZANAFLEX 4 MG PO ×3 (09:38→21:38)
[2024-05-09] MEDS: DETROL LA 2 MG PO ×2 (09:38→19:34)
[2024-05-09] MEDS: XANAX 1 MG PO ×2 (09:38→19:35)
[2024-05-09] MEDS: CELEXA 20 MG PO ×2 (09:38→19:35)
[2024-05-09] MEDS: ALDACTONE 100 MG PO (09:39)
[2024-05-09] MEDS: VITAMIN B-12 1000 MCG PO (09:39)
[2024-05-09] MEDS: VITAMIN D3 (cholecalciferol) 50 MCG PO (09:39)
--- NOTE | 2024-05-09 10:58 | CM ---
Addendum entered by VICKI Pendleton 05/09/24 16:53:
Received return call back from Shaunna in admissions at [facility], who upon looking at patient stated that patient is too dependent for them to be appropriate per PT. Met with patient to update. She expressed understanding. She stated that she would be
agreeable to going home with VN but wanted to check in with her spouse. Placed a call to patient's spouse however he asked for a call later in the day.
Placed a call to patient's spouse again later but his voice mail was full.
Will call in the am.
Original Note:
Reviewed chart, per attending patient medically cleared for discharge today. Placed a call to Shaunna in admissions at [facility] who stated that she is unsure of bed availability today. She will review referral and call back. She advised to place a
referral to [facility] as well. Sent referral to [facility] in addition to [facility] as patient resides in [place]. Will await determination.
Plan: Case management will continue to follow and assist with discharge planning. Hopeful transfer to acute rehab.
[2024-05-09 12:20] VITALS: BP 111/67; PULSE 89
[2024-05-09 13:20] VITALS: BP 111/67; PULSE 89
--- NOTE | 2024-05-09 13:57 | CON.MD ---
Documented by User: Chelita Nance PA-C 05/09/24 21:35
Consultation - Medical
-
Referring Provider:
Chief Complaint: Legs weakness, exacerbation of Multiple Sclerosis
History of Present Illness: 49-year-old female with PMH of (multiple sclerosis) presented to [facility] ED on for evaluation of abrupt worsening ambulatory dysfunction, legs weakness, and spasms. She was previously admitted 2 months ago for MS
flare related to UTI. She also had a seizure and was placed on Keppra. She has been walking with the assistance of a rolling walker from her bedroom to the bathroom up until Thursday when she was unable to do so. Over the past few days, her legs
have gotten weaker. She is having trouble getting into bed, walk and unable to dorsiflex due to significant pain and spasms. She was given IV Dilaudid and Valium for her significant pain. She was admitted and placed on Morphine and Keppra pending
neurology consult. Neurology recommended stopping both medications and placing her on her home medications of Baclofen 20mg bid (says takes tid at home) and increasing tizanidine 2mg to 4mg tid with recommendation of OP thoracic and Lumbar MRI.
Spoke with patient and her at her bedside. Patient has not left her home in about 3 years. Last seen by her neurologist in office 3 years ago due to difficulty getting ready and getting to the appointments. She reports to have has tried
several MS medications over the years that were not effective in slowing the progression of the disease and that have left her with intolerable side effects. She claims to have last taken MS medications 10 years ago without worsening of brain
lesions. Her neurologist at [facility] had discussed the option of an alternative MS medication but was reluctant in pursuing it due to prior medication failure.
Past Medical History: Multiple Sclerosis with lower extremities weakness, and spasticity
Procedure History:
Family History: non contributory
Social History:
Functional Level Premorbidly: Independent mobility with rolling walker, independent with toileting and assisted with bathing.
Functional Level Currently: Bed mobility dependent, lower body care-dependent, transfer-dependent, ambulation not tested due to patient's severe spasticity with flex trunk, legs- per therapy would need ambulance or stretcher for transport to home or
rehabilitation
Tobacco: Denies
Alcohol: Denies
Drug use: Denies
Lives with: Spouse
24-hour assistance available:
Number of floors: 2
# steps to enter:
# steps to second floor: FF- patient remains on second floor
Potential First floor set up:
Driving: No
Occupation: Disabled
�
Allergies:
Allergy/AdvReac Type Severity Reaction Status Date / Time
No Known Allergies Allergy Verified 03/24/24 20:34
Review of Systems:
Constitutional: (x) Normal _
Eye: (x) Normal _
Ear/Nose/Throat: (x) Normal _
Respiratory: (x) Normal _
Cardiovascular: (x) Normal _
Gastrointestinal: (x) Normal _
Genitourinary: (x) Normal _
Musculoskeletal: (x) legs spasms, weakness
Integumentary: (x) Normal _
Neurologic: (x) MS flare
Psychiatric: (x) anxiety
Endocrine: (x) Normal _
Hematologic/Lymphatic: (x) Normal _
Allergic/Immunologic: (x) Normal _
Medications:
Active Current Visit Medication List
Category Date Time Status
Acetaminophen [Tylenol] Med 05/09/24 08:00 Active
1,000 mg PO TID
Acetaminophen [Tylenol] Med 05/08/24 00:33 Active
650 mg PO Q4HPRN PRN
Alprazolam [Xanax] Med 05/08/24 08:00 Active
1 mg PO BID
Baclofen [Lioresal] Med 05/08/24 08:00 Active
20 mg PO BID
Bisacodyl [Dulcolax] Med 05/08/24 00:33 Active
10 mg RECTAL [id number] PRN
Cholecalciferol (Vitamin D3) [VITAMIN D3 ( Med 05/08/24 08:00 Active
cholecalciferol)]
50 mcg PO DAILY
Citalopram [Celexa] Med 05/08/24 08:00 Active
20 mg PO BID
Cyanocobalamin [Vitamin B-12] Med 05/08/24 08:00 Active
1,000 mcg PO DAILY
Docusate W/Senna [Senokot-S] Med 05/08/24 00:33 Active
1 tablet PO BIDPRN PRN
Enoxaparin Sodium [Lovenox] Med 05/08/24 18:00 Active
40 mg SC QPM
Flush (0.9% Sodium Chloride) [Flush (Nss)] Med 05/08/24 01:00 Active
See Dose Instructions IV PER PROTOCOL
Gabapentin [Neurontin] Med 05/09/24 13:45 Active
100 mg PO TID
HYDROmorphone [Dilaudid] Med 05/08/24 00:33 Active
0.5 mg IV Q4HPRN PRN
Polyethylene Glycol Powder [Miralax] Med 05/08/24 00:33 Active
17 grams PO DAILYPRN PRN
Spironolactone [Aldactone] Med 05/08/24 08:00 Active
100 mg PO DAILY
Tizanidine [Zanaflex] Med 05/08/24 11:08 Active
4 mg PO TID
Tolterodine Extended Release [Detrol LA] Med 05/08/24 08:00 Active
2 mg PO BID
Trazodone [Desyrel] Med 05/08/24 22:00 Active
50 mg PO HS
diazePAM [Valium Injection] Med 05/08/24 00:33 Active
5 mg IV Q8HPRN PRN
Vitals:
Temp Pulse Resp BP Pulse Ox
98.0 F 83 17 125/74 97
05/09/24 07:00 05/09/24 09:39 05/09/24 07:00 05/09/24 09:39 05/09/24 07:00
Height 5 ft 1 in
Actual Weight 45.132 kg
Body Mass Index (BMI) 18.8
Physical Exam:
General Appearance/Observation: Well-developed, thin individual in no apparent distress.
Pain/Comfort Assessment: legs
Mood/Affect: depressed
Integumentary/Operative Site:
�� Pressure Ulcer Evaluation: absent over heels.
��
�� Other Type of Wound: absent
��
Eyes: Symmetrical and round pupils
Ears/Nose/Throat: oral mucosa moist,� throat clear.������������ Lips/Teeth/Gums: normal
Neck: No muscle spasm or tenderness
Cardiovascular: Heart: regular, no murmur
Pulses: dorsalis pedis 2+ bilaterally
Respiratory: Respiratory Effort/Chest Expansion: normal ������� Auscultation: Clear to auscultation bilaterally
Gastrointestinal: abdomen not tender, no distension, normal abdominal bowel sounds
Genitourinary: No Starks, purwick
Extremities: Edema: None Cyanosis: None Trophic changes: None
Neurology Exam:
Orientation: Alert, Oriented to self, Time, Place
Memory: Intact for immediate medical concerns
Higher cortical function
Comprehension: Intact
Two step command: Intact
Naming: Intact
Cranial Nerves:
�� CNII: Pupillary light reflex: Intact��� Visual Field:
�� CN III, IV, : Extraocular muscles: Intact
�� CN V: Facial Sensation at Forehead: Intact, Maxilla: Intact, Mandible: Intact
�� CN VII: Facial movement: Symmetric
�� CN VIII: Hearing: Normal
�� CN IX/X: Speech & swallow: low volume Position of Uvula: Midline
�� CN XI: Shoulder shrug: Symmetric
�� CN XII: Tongue protrusion: Midline
Sensory:
�� Light touch: Intact in bilateral upper and lower extremities
�� Reflexes:
�� Biceps: 1+ bilaterally
�� Brachioradialis: 1+ bilaterally
�� Triceps: 1+ bilaterally
�� Patellar: 1+ bilaterally
�� Achilles: trace bilaterally
�� Clonus: bilaterally ankles very rigid and in extension
�� Felix: Negative bilaterally
Cerebellar: Dysmetria/Ataxia: not tested
Musculoskeletal:
Motor: (Manual muscle scale 0-5)
Muscle SA EF WE EE FF FA HF KE DF EHL PF
Right� 4 4 3 4 1 1 0 1 0
Left 4 4 3 4 1 1 0 1 0
Tone: increased tone in limbs
Range of Motion: significantly diminished rom of bilateral ankles. Left foot slightly inverted while lying in bed.
Lab Results
Labs
WBC 7.6 10^3/uL (4.8-10.8) 05/07/24 22:45
RBC 4.34 10^6/uL (4.20-5.40) 05/07/24 22:45
Hgb 12.7 g/dL (12.0-16.0) 05/07/24 22:45
Hct 36.4 % (37.0-47.0) L 05/07/24 22:45
MCV 83.9 fL (81.0-99.0) 05/07/24 22:45
MCH 29.3 pg (27.0-31.0) 05/07/24 22:45
MCHC 34.9 g/dL (33.0-37.0) 05/07/24 22:45
RDW 12.2 % (11.5-14.5) 05/07/24 22:45
Plt Count 226 10^3/uL (130-400) 05/07/24 22:45
MPV 10.9 fL (7.4-10.4) H 05/07/24 22:45
Abs Immat Gran (auto) 0.0 10^3/uL (0-0.05) 05/07/24 22:45
Absolute Neuts (auto) 5.7 10^3/uL (1.4-6.5) 05/07/24 22:45
Absolute Lymphs (auto) 1.3 10^3/uL (1.2-3.4) 05/07/24 22:45
Absolute Monos (auto) 0.4 10^3/uL (0.1-0.6) 05/07/24 22:45
Absolute Eos (auto) 0.1 10^3/uL (0-0.7) 05/07/24 22:45
Absolute Basos (auto) 0.1 10^3/uL (0-0.2) 05/07/24 22:45
Immature Gran % 0.3 % (0-0.5) 05/07/24 22:45
Neutrophils % 74.3 % (42.2-75.2) 05/07/24 22:45
Lymphocytes % 17.3 % (20.5-51.1) L 05/07/24 22:45
Monocytes % 5.2 % (1.7-9.3) 05/07/24 22:45
Eosinophils % 1.7 % (0-6) 05/07/24 22:45
Basophils % 1.2 % (0-2) 05/07/24 22:45
Nucleated RBC % 0 % 05/07/24 22:45
Sodium 138 mmol/L (135-145) 05/07/24 22:45
Potassium 4.0 mmol/L (3.5-5.1) 05/07/24 22:45
Chloride 101 mmol/L (98-107) 05/07/24 22:45
Carbon Dioxide 32 mmol/L (22-30) H 05/07/24 22:45
BUN 11 mg/dl (7-17) 05/07/24 22:45
Creatinine 0.6 mg/dL (0.6-1.0) 05/07/24 22:45
eGFR > 60.00 05/07/24 22:45
Glucose 116 mg/dl (70-99) H 05/07/24 22:45
Calcium 9.6 mg/dl (8.4-10.2) 05/07/24 22:45
Total Bilirubin 0.3 mg/dl (0.2-1.3) 05/07/24 22:45
AST 21 U/L (14-36) 05/07/24 22:45
ALT 13 U/L (0-35) 05/07/24 22:45
Alkaline Phosphatase 77 U/L (38-126) 05/07/24 22:45
Total Protein 6.8 g/dl (6.3-8.2) 05/07/24 22:45
Albumin 4.3 g/dl (3.5-5.0) 05/07/24 22:45
Urine Color Straw 05/07/24 22:45
Urine Clarity Clear (Clear) 05/07/24 22:45
Urine pH 8.0 (5.0-9.0) 05/07/24 22:45
Ur Specific [place] 1.010 (<1.030) 05/07/24 22:45
Urine Ketones Negative (Negative) 05/07/24 22:45
Ur Occult Blood Reflex Negative (Negative) 05/07/24 22:45
Urine Nitrite (Reflex) Negative (Negative) 05/07/24 22:45
Urine Bilirubin Negative (Negative) 05/07/24 22:45
Urine Urobilinogen Negative (Neg - 1+) 05/07/24 22:45
Leukocyte Esterase Rfl Trace (Negative) A 05/07/24 22:45
Urine RBC 0-2 /HPF (0-2) 05/07/24 22:45
Urine WBC (Reflex) 0-2 /HPF (0-5) 05/07/24 22:45
Ur Squamous Epith Cells 0-2 /LPF (Few) 05/07/24 22:45
Urine Bacteria (Reflex) Few (Negative) A 05/07/24 22:45
Urine Glucose Negative (Negative) 05/07/24 22:45
Urine Albumin (Reflex) Negative (Neg - Trace) 05/07/24 22:45
�
Diagnostic Results: as per HPI
Assessment 49-year-old female with PMH of (multiple sclerosis) presented to [facility] ED on for evaluation of abrupt worsening ambulatory dysfunction, legs weakness, and spasms. Currently on baclofen, Tizanidine, IV Dilaudid, Valium. Had tried
several MS medications that were ineffective. Is on Baclofen and Tizanidine at home.
Plan
PT/OT to increase independence with ADLs, improve balance, coordination, endurance, strength, mobility, community reintegration, decreased burden of care on others and family education.
MS Exacerbation: Has failed several drugs in the past and with side effects. Sees neurology at [facility]. Seen by neurology- May benefit from MRI of thoracic and lumbar OP. Follow with OP neurology. Urinalysis- negative, except for trace amount of leuk.
esterase. Discussed looking into [facility] medical transport to get to neurology appointment. Will discuss Ocrevus treatment option with her neurologist.
Spasticity:� On baclofen 20mg bid , Tizanidine 4mg tid. Says was on Baclofen tid at home( dose can be verified through pharmacy and adjust accordingly-. Continue range of motion exercises and stretching program. Discussed IT pump with patient and
her as an option in managing her spasticity and to manage her pain. Discussed a referral to PMR specialist who specializes in IT pump for an evaluation. At patient's preference will Follow up with her own neurologist for further discussion
about Ocrevus therapy as was previously discussed with her and for referral for IT evaluation
Psych/Anxiety/Depression: Psychology consult.�Currently on Xanax 1mg bid, Celexa 20mg bid. Monitor mood, adjust medications as needed.
Skin: monitor for pressure sores/rashes/lesions.
Pain: acetaminophen as needed, IV Dilaudid. Consider adding gabapentin as tolerated
Bowel: Colace and Senna, PRN bisacodyl.
Bladder: Time void, PVRs, PRN straight cath. Continue on Detrol
GI Prophylaxis: Pantoprazole
DVT Prophylaxis: Mechanical and Lovenox
Pulmonary: Incentive spirometry
Safety: Continue to reinforce assistance with all transfers.
Code Status:� Full code �
Functional and Medical Goals: Modified Independent with ADL�s, ambulation, transfers
Discharge destination: Transitional SNF if no improvement in spasticity with acute inpatient rehabilitation once flare symptoms have improved.
Summary of recommendations: Patient with exacerbation of Multiple Sclerosis associated with ambulatory dysfunction due to severe spasticity of trunk, legs, legs weakness. Currently on Xanax, IV Dilaudid, Baclofen, Tizanidine. Patient currently
unable to ambulate due to severe spasticity and pain. Patient at her current level of function is not an ideal candidate for acute inpatient Rehabilitation due to severe spasticity of trunk, legs moderately limiting her ability to stand, sit, walk.
Would recommend transitional transfer to SNF for medical management then acute inpatient rehabilitation once symptoms improve or are stable for PT/OT.
MS Exacerbation: Has failed several drugs in the past and with side effects. Sees neurology at [facility]. Seen by neurology- May benefit from MRI of thoracic and lumbar OP. Follow with OP neurology. Urinalysis- negative, except for trace amount of leuk.
esterase
Spasticity:� On baclofen 20mg bid (says takes it tid at home-could verify with pharm for accuracy), Tizanidine 4mg ti. Continue range of motion exercises and stretching program. Discussed IT pump with patient and her as an option in
managing her spasticity and pain. Discussed a referral to PMR specialist who specializes in IT pump for an evaluation. At patient's preference will Follow up with her own neurologist for further discussion about Ocrevus therapy as was previously
discussed with her and for referral for IT evaluation
Psych/Anxiety/Depression: Psychology consult.�Currently on Xanax 1mg bid, Celexa 20mg bid. Monitor mood, adjust medications as needed.
Pain: acetaminophen as needed, IV Dilaudid. Consider adding gabapentin as tolerated
Bowel: Colace and Senna, PRN bisacodyl.
Bladder: Time void, PVRs, PRN straight cath. Continue on Detrol
GI Prophylaxis: Pantoprazole
DVT Prophylaxis: Mechanical and Lovenox
Pulmonary: Incentive spirometry
Safety: Continue to reinforce assistance with all transfers.
Thank you for allowing me to care for your patient. Please contact me with any questions or concerns.
This note was dictated using a voice recognition system. Please excuse any typographical errors from station chief. If you believe there are any discrepancies, please notify our office.

Documented by User: Emigdio Mckeon MD 05/10/24 07:19
Consultation - Medical
-
Referring Provider:
Chief Complaint: Legs weakness, exacerbation of Multiple Sclerosis
History of Present Illness: 49-year-old female with PMH of (multiple sclerosis) presented to [facility] ED on for evaluation of abrupt worsening ambulatory dysfunction, legs weakness, and spasms. She was previously admitted 2 months ago for MS
flare related to UTI. She also had a seizure and was placed on Keppra. She has been walking with the assistance of a rolling walker from her bedroom to the bathroom up until Thursday when she was unable to do so. Over the past few days, her legs
have gotten weaker. She is having trouble getting into bed, walk and unable to dorsiflex due to significant pain and spasms. She was given IV Dilaudid and Valium for her significant pain. She was admitted and placed on Morphine and Keppra pending
neurology consult. Neurology recommended stopping both medications and placing her on her home medications of Baclofen 20mg bid (says takes tid at home) and increasing tizanidine 2mg to 4mg tid with recommendation of OP thoracic and Lumbar MRI.
Spoke with patient and her at her bedside. Patient has not left her home in about 3 years. Last seen by her neurologist in office 3 years ago due to difficulty getting ready and getting to the appointments. She reports to have has tried
several MS medications over the years that were not effective in slowing the progression of the disease and that have left her with intolerable side effects. She claims to have last taken MS medications 10 years ago without worsening of brain
lesions. Her neurologist at [facility] had discussed the option of an alternative MS medication but was reluctant in pursuing it due to prior medication failure.
Past Medical History: Multiple Sclerosis with lower extremities weakness, and spasticity
Procedure History:
Family History: non contributory
Social History:
Functional Level Premorbidly: Independent mobility with rolling walker, independent with toileting and assisted with bathing.
Functional Level Currently: Bed mobility dependent, lower body care-dependent, transfer-dependent, ambulation not tested due to patient's severe spasticity with flex trunk, legs- per therapy would need ambulance or stretcher for transport to home or
rehabilitation
Tobacco: Denies
Alcohol: Denies
Drug use: Denies
Lives with: Spouse
24-hour assistance available:
Number of floors: 2
# steps to enter:
# steps to second floor: FF- patient remains on second floor
Potential First floor set up:
Driving: No
Occupation: Disabled
�
Allergies:
Allergy/AdvReac Type Severity Reaction Status Date / Time
No Known Allergies Allergy Verified 03/24/24 20:34
Review of Systems:
Constitutional: (x) Normal _
Eye: (x) Normal _
Ear/Nose/Throat: (x) Normal _
Respiratory: (x) Normal _
Cardiovascular: (x) Normal _
Gastrointestinal: (x) Normal _
Genitourinary: (x) Normal _
Musculoskeletal: (x) legs spasms, weakness
Integumentary: (x) Normal _
Neurologic: (x) MS flare
Psychiatric: (x) anxiety
Endocrine: (x) Normal _
Hematologic/Lymphatic: (x) Normal _
Allergic/Immunologic: (x) Normal _
Medications:
Active Current Visit Medication List
Category Date Time Status
Acetaminophen [Tylenol] Med 05/09/24 08:00 Active
1,000 mg PO TID
Acetaminophen [Tylenol] Med 05/08/24 00:33 Active
650 mg PO Q4HPRN PRN
Alprazolam [Xanax] Med 05/08/24 08:00 Active
1 mg PO BID
Baclofen [Lioresal] Med 05/08/24 08:00 Active
20 mg PO BID
Bisacodyl [Dulcolax] Med 05/08/24 00:33 Active
10 mg RECTAL [id number] PRN
Cholecalciferol (Vitamin D3) [VITAMIN D3 ( Med 05/08/24 08:00 Active
cholecalciferol)]
50 mcg PO DAILY
Citalopram [Celexa] Med 05/08/24 08:00 Active
20 mg PO BID
Cyanocobalamin [Vitamin B-12] Med 05/08/24 08:00 Active
1,000 mcg PO DAILY
Docusate W/Senna [Senokot-S] Med 05/08/24 00:33 Active
1 tablet PO BIDPRN PRN
Enoxaparin Sodium [Lovenox] Med 05/08/24 18:00 Active
40 mg SC QPM
Flush (0.9% Sodium Chloride) [Flush (Nss)] Med 05/08/24 01:00 Active
See Dose Instructions IV PER PROTOCOL
Gabapentin [Neurontin] Med 05/09/24 13:45 Active
100 mg PO TID
HYDROmorphone [Dilaudid] Med 05/08/24 00:33 Active
0.5 mg IV Q4HPRN PRN
Polyethylene Glycol Powder [Miralax] Med 05/08/24 00:33 Active
17 grams PO DAILYPRN PRN
Spironolactone [Aldactone] Med 05/08/24 08:00 Active
100 mg PO DAILY
Tizanidine [Zanaflex] Med 05/08/24 11:08 Active
4 mg PO TID
Tolterodine Extended Release [Detrol LA] Med 05/08/24 08:00 Active
2 mg PO BID
Trazodone [Desyrel] Med 05/08/24 22:00 Active
50 mg PO HS
diazePAM [Valium Injection] Med 05/08/24 00:33 Active
5 mg IV Q8HPRN PRN
Vitals:
Temp Pulse Resp BP Pulse Ox
98.0 F 83 17 125/74 97
05/09/24 07:00 05/09/24 09:39 05/09/24 07:00 05/09/24 09:39 05/09/24 07:00
Height 5 ft 1 in
Actual Weight 45.132 kg
Body Mass Index (BMI) 18.8
Physical Exam:
General Appearance/Observation: Well-developed, thin individual in no apparent distress.
Pain/Comfort Assessment: legs
Mood/Affect: depressed
Integumentary/Operative Site:
�� Pressure Ulcer Evaluation: absent over heels.
��
�� Other Type of Wound: absent
��
Eyes: Symmetrical and round pupils
Ears/Nose/Throat: oral mucosa moist,� throat clear.������������ Lips/Teeth/Gums: normal
Neck: No muscle spasm or tenderness
Cardiovascular: Heart: regular, no murmur
Pulses: dorsalis pedis 2+ bilaterally
Respiratory: Respiratory Effort/Chest Expansion: normal ������� Auscultation: Clear to auscultation bilaterally
Gastrointestinal: abdomen not tender, no distension, normal abdominal bowel sounds
Genitourinary: No Starks, purwick
Extremities: Edema: None Cyanosis: None Trophic changes: None
Neurology Exam:
Orientation: Alert, Oriented to self, Time, Place
Memory: Intact for immediate medical concerns
Higher cortical function
Comprehension: Intact
Two step command: Intact
Naming: Intact
Cranial Nerves:
�� CNII: Pupillary light reflex: Intact��� Visual Field:
�� CN III, IV, : Extraocular muscles: Intact
�� CN V: Facial Sensation at Forehead: Intact, Maxilla: Intact, Mandible: Intact
�� CN VII: Facial movement: Symmetric
�� CN VIII: Hearing: Normal
�� CN IX/X: Speech & swallow: low volume Position of Uvula: Midline
�� CN XI: Shoulder shrug: Symmetric
�� CN XII: Tongue protrusion: Midline
Sensory:
�� Light touch: Intact in bilateral upper and lower extremities
�� Reflexes:
�� Biceps: 1+ bilaterally
�� Brachioradialis: 1+ bilaterally
�� Triceps: 1+ bilaterally
�� Patellar: 1+ bilaterally
�� Achilles: trace bilaterally
�� Clonus: bilaterally ankles very rigid and in extension
�� Felix: Negative bilaterally
Cerebellar: Dysmetria/Ataxia: not tested
Musculoskeletal:
Motor: (Manual muscle scale 0-5)
Muscle SA EF WE EE FF FA HF KE DF EHL PF
Right� 4 4 3 4 1 1 0 1 0
Left 4 4 3 4 1 1 0 1 0
Tone: increased tone in limbs
Range of Motion: significantly diminished rom of bilateral ankles. Left foot slightly inverted while lying in bed.
Lab Results
Labs
WBC 7.6 10^3/uL (4.8-10.8) 05/07/24 22:45
RBC 4.34 10^6/uL (4.20-5.40) 05/07/24 22:45
Hgb 12.7 g/dL (12.0-16.0) 05/07/24 22:45
Hct 36.4 % (37.0-47.0) L 05/07/24 22:45
MCV 83.9 fL (81.0-99.0) 05/07/24 22:45
MCH 29.3 pg (27.0-31.0) 05/07/24 22:45
MCHC 34.9 g/dL (33.0-37.0) 05/07/24 22:45
RDW 12.2 % (11.5-14.5) 05/07/24 22:45
Plt Count 226 10^3/uL (130-400) 05/07/24 22:45
MPV 10.9 fL (7.4-10.4) H 05/07/24 22:45
Abs Immat Gran (auto) 0.0 10^3/uL (0-0.05) 05/07/24 22:45
Absolute Neuts (auto) 5.7 10^3/uL (1.4-6.5) 05/07/24 22:45
Absolute Lymphs (auto) 1.3 10^3/uL (1.2-3.4) 05/07/24 22:45
Absolute Monos (auto) 0.4 10^3/uL (0.1-0.6) 05/07/24 22:45
Absolute Eos (auto) 0.1 10^3/uL (0-0.7) 05/07/24 22:45
Absolute Basos (auto) 0.1 10^3/uL (0-0.2) 05/07/24 22:45
Immature Gran % 0.3 % (0-0.5) 05/07/24 22:45
Neutrophils % 74.3 % (42.2-75.2) 05/07/24:45
Lymphocytes % 17.3 % (20.5-51.1) L 05/07/24 22:45
Monocytes % 5.2 % (1.7-9.3) 05/07/24 22:45
Eosinophils % 1.7 % (0-6) 05/07/24 22:45
Basophils % 1.2 % (0-2) 05/07/24 22:45
Nucleated RBC % 0 % 05/07/24 22:45
Sodium 138 mmol/L (135-145) 05/07/24 22:45
Potassium 4.0 mmol/L (3.5-5.1) 05/07/24 22:45
Chloride 101 mmol/L (98-107) 05/07/24 22:45
Carbon Dioxide 32 mmol/L (22-30) H 05/07/24 22:45
BUN 11 mg/dl (7-17) 05/07/24 22:45
Creatinine 0.6 mg/dL (0.6-1.0) 05/07/24 22:45
eGFR > 60.00 05/07/24 22:45
Glucose 116 mg/dl (70-99) H 05/07/24 22:45
Calcium 9.6 mg/dl (8.4-10.2) 05/07/24 22:45
Total Bilirubin 0.3 mg/dl (0.2-1.3) 05/07/24 22:45
AST 21 U/L (14-36) 05/07/24 22:45
ALT 13 U/L (0-35) 05/07/24 22:45
Alkaline Phosphatase 77 U/L (38-126) 05/07/24 22:45
Total Protein 6.8 g/dl (6.3-8.2) 05/07/24 22:45
Albumin 4.3 g/dl (3.5-5.0) 05/07/24 22:45
Urine Color Straw 05/07/24 22:45
Urine Clarity Clear (Clear) 05/07/24 22:45
Urine pH 8.0 (5.0-9.0) 05/07/24 22:45
Ur Specific [place] 1.010 (<1.030) 05/07/24 22:45
Urine Ketones Negative (Negative) 05/07/24 22:45
Ur Occult Blood Reflex Negative (Negative) 05/07/24 22:45
Urine Nitrite (Reflex) Negative (Negative) 05/07/24 22:45
Urine Bilirubin Negative (Negative) 05/07/24 22:45
Urine Urobilinogen Negative (Neg - 1+) 05/07/24 22:45
Leukocyte Esterase Rfl Trace (Negative) A 05/07/24 22:45
Urine RBC 0-2 /HPF (0-2) 05/07/24 22:45
Urine WBC (Reflex) 0-2 /HPF (0-5) 05/07/24 22:45
Ur Squamous Epith Cells 0-2 /LPF (Few) 05/07/24 22:45
Urine Bacteria (Reflex) Few (Negative) A 05/07/24 22:45
Urine Glucose Negative (Negative) 05/07/24 22:45
Urine Albumin (Reflex) Negative (Neg - Trace) 05/07/24 22:45
�
Diagnostic Results: as per HPI
Assessment 49-year-old female with PMH of (multiple sclerosis) presented to [facility] ED on for evaluation of abrupt worsening ambulatory dysfunction, legs weakness, and spasms. Currently on baclofen, Tizanidine, IV Dilaudid, Valium. Had tried
several MS medications that were ineffective. Is on Baclofen and Tizanidine at home.
Plan
PT/OT to increase independence with ADLs, improve balance, coordination, endurance, strength, mobility, community reintegration, decreased burden of care on others and family education.
MS Exacerbation: Has failed several drugs in the past and with side effects. Sees neurology at [facility]. Seen by neurology- May benefit from MRI of thoracic and lumbar OP. Follow with OP neurology. Urinalysis- negative, except for trace amount of leuk.
esterase. Discussed looking into [facility] medical transport to get to neurology appointment. Will discuss Ocrevus treatment option with her neurologist.
Spasticity:� On baclofen 20mg bid , Tizanidine 4mg tid. Says was on Baclofen tid at home( dose can be verified through pharmacy and adjust accordingly-. Continue range of motion exercises and stretching program. Discussed IT pump with patient and
her as an option in managing her spasticity and to manage her pain. Discussed a referral to PMR specialist who specializes in IT pump for an evaluation. At patient's preference will Follow up with her own neurologist for further discussion
about Ocrevus therapy as was previously discussed with her and for referral for IT evaluation
Psych/Anxiety/Depression: Psychology consult.�Currently on Xanax 1mg bid, Celexa 20mg bid. Monitor mood, adjust medications as needed.
Skin: monitor for pressure sores/rashes/lesions.
Pain: acetaminophen as needed, IV Dilaudid. Consider adding gabapentin as tolerated
Bowel: Colace and Senna, PRN bisacodyl.
Bladder: Time void, PVRs, PRN straight cath. Continue on Detrol
GI Prophylaxis: Pantoprazole
DVT Prophylaxis: Mechanical and Lovenox
Pulmonary: Incentive spirometry
Safety: Continue to reinforce assistance with all transfers.
Code Status:� Full code �
Functional and Medical Goals: Modified Independent with ADL�s, ambulation, transfers
Discharge destination: Transitional SNF if no improvement in spasticity with acute inpatient rehabilitation once flare symptoms have improved.
Summary of recommendations: Patient with exacerbation of Multiple Sclerosis associated with ambulatory dysfunction due to severe spasticity of trunk, legs, legs weakness. Currently on Xanax, IV Dilaudid, Baclofen, Tizanidine. Patient currently
unable to ambulate due to severe spasticity and pain. Patient at her current level of function is not an ideal candidate for acute inpatient Rehabilitation due to severe spasticity of trunk, legs moderately limiting her ability to stand, sit, walk.
Would recommend transitional transfer to SNF for medical management then acute inpatient rehabilitation once symptoms improve or are stable for PT/OT.
MS Exacerbation: Has failed several drugs in the past and with side effects. Sees neurology at [facility]. Seen by neurology- May benefit from MRI of thoracic and lumbar OP. Follow with OP neurology. Urinalysis- negative, except for trace amount of leuk.
esterase
Spasticity:� On baclofen 20mg bid (says takes it tid at home-could verify with pharm for accuracy), Tizanidine 4mg ti. Continue range of motion exercises and stretching program. Discussed IT pump with patient and her as an option in
managing her spasticity and pain. Discussed a referral to PMR specialist who specializes in IT pump for an evaluation. At patient's preference will Follow up with her own neurologist for further discussion about Ocrevus therapy as was previously
discussed with her and for referral for IT evaluation
Psych/Anxiety/Depression: Psychology consult.�Currently on Xanax 1mg bid, Celexa 20mg bid. Monitor mood, adjust medications as needed.
Pain: acetaminophen as needed, IV Dilaudid. Consider adding gabapentin as tolerated
Bowel: Colace and Senna, PRN bisacodyl.
Bladder: Time void, PVRs, PRN straight cath. Continue on Detrol
GI Prophylaxis: Pantoprazole
DVT Prophylaxis: Mechanical and Lovenox
Pulmonary: Incentive spirometry
Safety: Continue to reinforce assistance with all transfers.
Patient was seen and examined by me 05/09/24 16:50. Discussed with Chelita Nance PA-C and agree with above note, examination and plan as outlined. Patient with significant spasticity and contractures. Could consider titrating up on baclofen
towards 20mg TID - QID. Pain control also important as increased pain could increase spastic tone further. Would probably be a good candidate for consideration of intrathecal pump management of spasticity, and likely also should consider botox or
motor point blocks to help with the spasticity and contractures.
Thank you for allowing me to care for your patient. Please contact me with any questions or concerns.
This note was dictated using a voice recognition system. Please excuse any typographical errors from station chief. If you believe there are any discrepancies, please notify our office.
[2024-05-09] MEDS: NEURONTIN 100 MG PO ×3 (14:22→21:38)
[2024-05-09 15:00] VITALS: BP 119/63
[2024-05-09] MEDS: TYLENOL 1000 MG PO ×2 (15:53→21:39)
[2024-05-09] MEDS: LOVENOX 40 MG SC (17:01)
[2024-05-09] MEDS: DESYREL 50 MG PO (22:42)
[2024-05-09 22:43] VITALS: BP 95/60
[2024-05-10] MEDS: DILAUDID 0.5 MG IV ×5 (05:36→21:38)
[2024-05-10 07:13] VITALS: BP 127/68
[2024-05-10] MEDS: ALDACTONE 100 MG PO (07:45)
[2024-05-10] MEDS: LIORESAL 20 MG PO ×2 (07:46→20:04)
[2024-05-10] MEDS: DETROL LA 2 MG PO ×2 (07:46→20:03)
[2024-05-10] MEDS: CELEXA 20 MG PO ×2 (07:46→20:03)
[2024-05-10] MEDS: VITAMIN D3 (cholecalciferol) 50 MCG PO (07:46)
[2024-05-10] MEDS: NEURONTIN 100 MG PO ×3 (07:46→21:35)
[2024-05-10] MEDS: ZANAFLEX 4 MG PO ×3 (07:47→21:35)
[2024-05-10] MEDS: XANAX 1 MG PO ×2 (07:47→20:02)
[2024-05-10] MEDS: VITAMIN B-12 1000 MCG PO (07:47)
--- NOTE | 2024-05-10 09:38 | W.PN.HOSP.TC ---
Today's Communication/Plan
-
see bold
Assessment / Plan
Assessment / Plan
Gen: NAD, AAOx3, appears chronically ill malnourished.
Eyes: EOMI, PERRLA, no scleral icterus.
Neck: supple.
CV: Continues to remain RRR, +S1/S2, no m/r/g.
Resp: Remains CTAB, no rales, wheezes, or rhonchi.
Abd: +BS, soft, NT, ND
Skin: No rashes.
Neuro: CN 2-12 intact
Psych: Calm
MS:
-with possible flare, presented with leg weakness, leg spasms, ambulatory dysfunction
-appreciate neuro recs
-morphine/Keppra stopped
-Baclofen started, tizanidine increased
-outpt initiation of multiple sclerosis medication as well as MRI of T and L-spines
-as per PMR, could consider increasing Baclofen. Also could consider intrathecal pump.
I had an extensive discussion with the patient's and the patient's at bedside. The patient's nurse, Gen Ashley, was present at bedside. I explained specifically that at this point in time I am not comfortable increasing the patient's
baclofen to 20 mg p.o. 4 times daily. I explained that the patient is medically cleared for discharge in the physiatry is recommending SNF. I explained that the rehabilitation caseworker will work with the patient and her to set up a safe discharge.
All questions were asked and answered.
FULL/Lovenox
Medically cleared for discharge. Case management aware.
Anticipated Discharge: Today
Subjective/Interval History
-
Date of Service: May 10, 2024
No new complaints.
Objective Data
-
Vital Signs:
Vital Signs
Temp Pulse Resp BP Pulse Ox
98.4 F 74 16 127/68 97
05/10/24 07:13 05/10/24 07:13 05/10/24 07:13 05/10/24 07:45 05/10/24 07:13
I&O
05/09/24 05/10/24 05/11/24
06:59 06:59 06:59
Intake Total 1440 / 1440 600 / 600
Output Total 1230 / 1230 912 / 912
Balance 210 / 210 -312 / -312
[2024-05-10] MEDS: VALIUM INJECTION 5 MG IV (14:00)
[2024-05-10 15:15] VITALS: BP 122/66
[2024-05-10] MEDS: TYLENOL 650 MG PO (16:33)
--- NOTE | 2024-05-10 16:58 | CM ---
Spoke with patient and her spouse who stated that patient is unable to return home as spouse is unable to take care of her. They were agreeable to CM exploring local facilities private pay. Spoke with Marlen in admissions at [facility],
Samm Carbajal who stated that patient may be able to get auth on secondary insurance. Will attempt that.
Plan: Case management will continue to follow and assist with discharge planning. Hopeful transfer to SNF.
[2024-05-10] MEDS: LOVENOX 40 MG SC (17:09)
[2024-05-10] MEDS: DESYREL 50 MG PO (21:35)
[2024-05-10] MEDS: FLUSH (NSS) 2 FLUSH IV (21:38)
[2024-05-10 22:49] VITALS: BP 84/52
[2024-05-10 23:04] VITALS: BP 82/40
[2024-05-10] MEDS: NSS 500 IV (23:24)
[2024-05-11] VITALS (9 sets, daily range): BP systolic 70–128; BP diastolic 44–77; PULSE 92
--- NOTE | 2024-05-11 01:24 | PTCARENOTE ---
Routine BP 84/52. HR 71. Patient sleeping bu easily arousable. TT to WEATHERIZATION SPECIALIST, covering house. 500ML NSS bolus administered. Follow up BP 91/51 HR 59, reported to WEATHERIZATION SPECIALIST. For continued monitoring.
[2024-05-11] MEDS: DILAUDID 0.5 MG IV ×5 (04:28→20:52)
[2024-05-11] MEDS: SENOKOT-S 1 TABLET PO (04:28)
[2024-05-11] MEDS: FLUSH (NSS) 2 FLUSH IV (04:29)
[2024-05-11] MEDS: DETROL LA 2 MG PO ×2 (08:04→20:55)
[2024-05-11] MEDS: LIORESAL 20 MG PO ×3 (08:05→22:11)
[2024-05-11] MEDS: NEURONTIN 100 MG PO ×3 (08:05→22:11)
[2024-05-11] MEDS: VITAMIN B-12 1000 MCG PO (08:05)
[2024-05-11] MEDS: ZANAFLEX 4 MG PO ×3 (08:05→22:11)
[2024-05-11] MEDS: CELEXA 20 MG PO ×2 (08:05→20:51)
[2024-05-11] MEDS: XANAX 1 MG PO ×2 (08:05→20:52)
[2024-05-11] MEDS: VITAMIN D3 (cholecalciferol) 50 MCG PO (08:11)
[2024-05-11] MEDS: ALDACTONE PO ×2 (08:13→08:43)
--- NOTE | 2024-05-11 09:25 | W.PN.HOSP.TC ---
Today's Communication/Plan
-
see bold
Assessment / Plan
Assessment / Plan
Gen: NAD, AAOx3, appears chronically ill malnourished.
Eyes: EOMI, PERRLA, no scleral icterus.
Neck: supple.
CV: RRR, +S1/S2, no m/r/g.
Resp: Continues to remain CTAB, no rales, wheezes, or rhonchi.
Abd: +BS, soft, NT, ND
Skin: No rashes.
Neuro: CN 2-12 intact, standing with the help of PT and walker
Psych: Calm
MS:
-with possible flare, presented with leg weakness, leg spasms, ambulatory dysfunction
-appreciate neuro recs
-morphine/Keppra stopped but pt currently on IV dilaudid PRN
-increase Baclofen to 20mg PO TID
-cont tizanidine (increased dose)
-outpt initiation of multiple sclerosis medication as well as MRI of T and L-spines
-as per PMR, could consider increasing Baclofen up to 20mg QID. Also could consider intrathecal pump.
-case discussed at length with Dr. Javier CM
On 05/10/24 I had an extensive discussion with the patient's and the patient's at bedside. The patient's nurse, Gen Ashley, was present at bedside. I explained specifically that at this point in time I am not comfortable increasing the
patient's baclofen to 20 mg p.o. 4 times daily. I explained that the patient is medically cleared for discharge in the physiatry is recommending SNF. I explained that the case aide will work with the patient and her to set up a safe
discharge. All questions were asked and answered.
FULL/Lovenox
Continues to remain medically cleared for discharge. Case management aware.
Anticipated Discharge: Today
Subjective/Interval History
-
Date of Service: May 11, 2024
No new complaints at this moment.
Objective Data
-
Vital Signs:
Vital Signs
Temp Pulse Resp BP Pulse Ox
97.8 F 99 18 115/73 97
05/11/24 07:00 05/11/24 07:00 05/11/24 07:00 05/11/24 07:00 05/11/24 07:00
I&O
05/10/24 05/11/24 05/12/24
06:59 06:59 06:59
Intake Total 600 / 600 1140 / 1140
Output Total 912 / 912 800 / 800
Balance -312 / -312 340 / 340
--- NOTE | 2024-05-11 13:38 | W.PN.NEURO.1 ---
Today's Communication / Plan
-
-Transfer to [facility] discussed with neurology there who did not feel transfer indicated
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
-Increase baclofen to 20 mg 3 times daily
-Maintain the increased dose of tizanidine 4 mg 3 times daily
-Stop spironolactone patient and her endorse that she is not on at home
-Check MRI of the lumbar and thoracic spine with without contrast
-Not recommending steroid medication
-Continue Gabapentin 100 mg TID
-For the future an intrathecal baclofen pump I feel would offer significant chance for benefit
-PMR and PT/OT efforts appreciated
Will follow
Neuro Assessment/Plan
Assessment
Patient is a 49-year-old man with a past ministry of multiple sclerosis with bilateral lower extremity spasticity, recent hospitalization with status epilepticus thought to be provoked by urinary tract infection presents to the hospital with
bilateral lower extremity weakness pain and ambulatory difficulties worse than baseline.
Patient and her report she has been taking baclofen 20 mg 3 times daily at home
She is on tizanidine 2 mg 3 times daily at home
Medication alprazolam 1 mg twice daily as well
Patient denies any new dysarthria she has chronic dysphagia no new vision changes or double vision no change in upper extremity strength. No bowel or bladder function no new urinary incontinence or retention or bowel incontinence.
Patient had not been on immune medication therapies for multiple sclerosis and more than 5 to 10 years sided concerns over side effects and safety risks she is considering alcoholism for the future, sees Dr Mace for neurology as outpatient
Patient and her requested transfer to [facility] for further expertise and care of multiple sclerosis. I discussed the case with [place] transfer center and neurologist there Dr. Jacobson, who did not see that transfer was indicated,
suggested MRI of the spine for evaluating for any new structural spine lesions but otherwise we will be focusing on medications for treatment of pain and spasticity and felt that intrathecal baclofen pump would be helpful for the future.
We have increased patient's Tizanidine from home dose here in hospital, she has been on 20 mg BID baclofen in hospital, also has received intermittent IV valium and IV dilaudid PRN. Started on low dose Gabapentin 100 mg TID.
My suspicion for a new contrast-enhancing lesion of the spine producing the patient's symptoms is low. I feel this is more likely related to chronic effects of multiple sclerosis on the spine producing chronic problems of lower extremity spasticity
which has become severe with pain spasms and ambulatory difficulty. No obvious severe metabolic derangements that are correctable that could be helpful for treating her present problem.
Subjective/Objective
Subjective Data
Date of Service: May 11, 2024
No acute events, she is frustrated not feeling improvement in leg spasticity, pain, ambulatory difficulty
Objective Data
Vital Signs
Temp Pulse Resp BP Pulse Ox
97.8 F 99 18 115/73 97
05/11/24 07:00 05/11/24 07:00 05/11/24 07:00 05/11/24 07:00 05/11/24 07:00
Lab Results
05/07/24 22:45
05/07/24 22:45
Sodium 138 mmol/L (135-145) 05/07/24 22:45
Potassium 4.0 mmol/L (3.5-5.1) 05/07/24 22:45
BUN 11 mg/dl (7-17) 05/07/24 22:45
Glucose 116 mg/dl (70-99) H 05/07/24 22:45
Calcium 9.6 mg/dl (8.4-10.2) 05/07/24 22:45
Patient Allergies
No Known Allergies Allergy (Verified 03/24/24 20:34)
Review of Systems
-
History Source: Patient
All other systems: Reviewed and negative
Constitutional: No Symptoms
EENT: No Symptoms Reported
Respiratory: No Symptoms
Cardiac: No Symptoms
Abdomen/GI: No Symptoms
Genitourinary: No Symptoms
Musculoskeletal: No Symptoms
Skin: No Symptoms
Neuro: Weakness; Negative Speech Problem
Endocrine: No Symptoms
Hematologic / Lymphatic: No Symptoms
Allergy / Immunology: No Symptoms
Physical Exam
-
General: Comfortable and Appears Chronically Ill
Eyes: No Ptosis
HEENT: Normocephalic
Respiratory: No Dyspnea; Negative Wheezes or Accessory Resp Muscle Use
Cardiac: No Murmur
GI: Soft and Non-tender
Skin: Warm and Dry; Negative Rash
Extremities: No Edema
Extended Neurological Exam
Mood & Affect: Mood Unremarkable and Affect Unremarkable
Attention Span & Concentration: Awake, Alert, Interactive and Other (Mild drowsiness, conversational, obeys commands, answers questions on medical history appropriately)
Memory: Unremarkable
Speech: Quality Unremarkable and Quantity Unremarkable; Negative Expressive Aphasia, Receptive Aphasia or Dysarthric
Cranial Nerve II: Left Eye: Pupillary Reactivity Unremarkable and Pupillary Size Unremarkable
Cranial Nerve II: Right Eye: Pupillary Reactivity Unremarkable and Pupillary Size Unremarkable
Cranial Nerves III, IV, : Extraocular Movement: Extraocular Movement Full in all Directions
Cranial Nerve VII: Facial Symmetry: Normal Facial Symmetry
Muscle Strength, Overall: Other (bilateral lower extremity spasticity, plantarflexion 4/5 bilaterally, hip flexion 4/5 effort bilaterally cannot sustain for more than 1-2 seconds, 4/5 hip abduction/adduction)
Muscle Bulk & Tone: Other (Bilateral severe lower extremity spasticity)
Deep Tendon Reflexes: Other (Hyperreflexic in lower extremity, no clonus)
Coordination: [id number] Testing Unremarkable
--- NOTE | 2024-05-11 16:24 | CM ---
Reviewed chart, [place] expressed interest through [employer] (clinical) Sent . Placed a call to Maddie in admissions but had to leave a voice mail message.
Plan: Case management will continue to follow and assist with discharge planning. Transfer to either SNF or acute care.
[2024-05-11] MEDS: LOVENOX 40 MG SC (16:41)
[2024-05-11] MEDS: DESYREL 50 MG PO (22:10)
[2024-05-11] MEDS: NSS 500 IV (23:44)
--- NOTE | 2024-05-11 23:56 | W.PN.UPDATE ---
Addendum entered and electronically signed by ANASTASIA Lawson 05/12/24 06:52:
BP improved in AM, parameters to Dilaudid is in place.
Original Note:
Update Note
Progress Note Update
patient BP 70/44 HR 73, asymptomatic, will order 500 ml bolus NSS now.
[2024-05-12 01:58] VITALS: BP 92/53
--- NOTE | 2024-05-12 04:30 | PTCARENOTE ---
Patient with manual BP 70/44 HR 73 @2336, asymptomatic. URBAN AND REGIONAL PLANNER made aware, 500 mls NSS Bolus ordered. Patient's BP after bolus 92/53 HR 81.
[2024-05-12] MEDS: DILAUDID 0.5 MG IV ×3 (06:39→20:45)
--- NOTE | 2024-05-12 07:43 | W.PN.HOSP.TC ---
Today's Communication/Plan
-
see bold/plan
Assessment / Plan
Assessment / Plan
Gen: appears in pain, AAOx3, appears chronically ill malnourished.
Eyes: EOMI, PERRLA, no scleral icterus.
Neck: supple.
CV: tachy, reg rhythm, +S1/S2, no m/r/g.
Resp: CTAB, no rales, wheezes, or rhonchi.
Abd: +BS, soft, NT, ND
Skin: No rashes.
Neuro: CN 2-12 intact
Psych: tearful, anxious
MS:
-with possible flare, presented with leg weakness, leg spasms, ambulatory dysfunction
-appreciate neuro recs
-morphine/Keppra stopped but pt currently on IV dilaudid PRN
-Baclofen increased to 20mg PO TID
-cont tizanidine (increased dose)
-outpt initiation of multiple sclerosis medication as well as MRI of T and L-spines
-as per PMR, could consider increasing Baclofen up to 20mg QID. Also could consider intrathecal pump.
Suicidal ideation:
-case discussed at length with psychiatry who will see in c/s
-1:1 ordered
Hypotension:
-s/p IVF bolus overnight
-start NS 125cc/hr
-likely related to dilaudid, and other medications. Stop IV dilaudid.
On 05/10/24 I had an extensive discussion with the patient's and the patient's at bedside. The patient's nurse, Gen Ashley, was present at bedside. I explained specifically that at this point in time I am not comfortable increasing the
patient's baclofen to 20 mg p.o. 4 times daily. I explained that the patient is medically cleared for discharge and that physiatry is recommending SNF. I explained that the nurse case manager will work with the patient and her to set up a safe
discharge. All questions were asked and answered.
On 05/12/24 I had an extensive discussion with the patient and her at bedside regarding her pain management. I explained that due to her hypotension it limits what medications I can give her. I explained that I am increasing her Neurontin.
I explained that I do have to stop her Dilaudid and she cannot have further Valium at this moment. All of this was discussed with Dr. Herrera who will see her shortly. The patient's also mentioned that the patient 'does not want to be on
this earth' anymore. Pt's states that the pt stated she wants to be discharged so she can go home and 'off herself.' Will consult psychiatry (discussed with Dr. Thomas over the phone).
RN updated at length
FULL/Lovenox
Total time spent on today's encounter was 52 minutes which included time spent in counseling the patient/family regarding diagnosis and treatment plan as listed above, goals of care, and symptom management. Case was discussed with nursing staff,
specialists, and care coordinators/case management. All labs and imaging personally reviewed by me. Remainder the time spent in detailed review of previous records, lab data, imaging, and other medical provider documentation.
Anticipated Discharge: Today
Subjective/Interval History
-
Date of Service: May 12, 2024
Pt tearful and c/o severe B/L LE pain stating her LEs feel 'encased.'
Objective Data
-
Labs:
Laboratory Results
05/12/24
06:53
Sodium Pending
Potassium Pending
Chloride Pending
Carbon Dioxide Pending
BUN Pending
Creatinine Pending
Glucose Pending
Calcium Pending
Vital Signs:
Vital Signs
Temp Pulse Resp BP Pulse Ox
98.4 F 81 18 92/53 98
05/11/24 23:35 05/12/24 01:58 05/11/24 23:35 05/12/24 01:58 05/11/24 23:35
I&O
05/11/24 05/12/24 05/13/24
06:59 06:59 06:59
Intake Total 1140 / 1140 840 / 840
Output Total 800 / 800 1800 / 1800
Balance 340 / 340 -960 / -960
--- NOTE | 2024-05-12 07:52 | W.PN.NEURO.1 ---
Today's Communication / Plan
-
-Agree with holding hydromorphone given hypotension and risks of harm with this medication
-Increase Baclofen to 20 mg QID
-Maintain same dose of Tizanidine
-Increase Gabapentin to 300 mg TID
-Trial one dose 125 mg IV solumedrol
-In for MRI of lumbar and thoracic spines
-Consideration for intrathecal baclofen pump as outpatient
-Consideration for adding low dose valium and stopping alprazolam if no further hypotension
Neuro Assessment/Plan
Assessment
Patient is a 49-year-old man with a past ministry of multiple sclerosis with bilateral lower extremity spasticity, recent hospitalization with status epilepticus thought to be provoked by urinary tract infection presents to the hospital with
bilateral lower extremity weakness pain and ambulatory difficulties worse than baseline.
Patient and her report she has been taking baclofen 20 mg 3 times daily at home
She is on tizanidine 2 mg 3 times daily at home
Medication alprazolam 1 mg twice daily as well
Patient denies any new dysarthria she has chronic dysphagia no new vision changes or double vision no change in upper extremity strength. No bowel or bladder function no new urinary incontinence or retention or bowel incontinence.
Patient had not been on immune medication therapies for multiple sclerosis and more than 5 to 10 years sided concerns over side effects and safety risks she is considering alcoholism for the future, sees Dr Mace for neurology as outpatient
Patient and her requested transfer to [facility] for further expertise and care of multiple sclerosis. I discussed the case with [facility] and neurologist there Dr. Jacobson, who did not see that transfer was indicated,
suggested MRI of the spine for evaluating for any new structural spine lesions but otherwise we will be focusing on medications for treatment of pain and spasticity and felt that intrathecal baclofen pump would be helpful for the future.
We have increased patient's Tizanidine from home dose here in hospital, she has been on 20 mg BID baclofen in hospital, also has received intermittent IV valium and IV dilaudid PRN. Started on low dose Gabapentin 100 mg TID.
My suspicion for a new contrast-enhancing lesion of the spine producing the patient's symptoms is low. I feel this is more likely related to chronic effects of multiple sclerosis on the spine producing chronic problems of lower extremity spasticity
which has become severe with pain spasms and ambulatory difficulty. No obvious severe metabolic derangements that are correctable that could be helpful for treating her present problem.
Subjective/Objective
Subjective Data
Date of Service: May 12, 2024
Feels worn out today, significant pain intermittently in the legs, no new vision changes, speech changes, or arm or hand weakness.
Objective Data
Vital Signs
Temp Pulse Resp BP Pulse Ox
98.4 F 81 18 92/53 98
05/11/24 23:35 05/12/24 01:58 05/11/24 23:35 05/12/24 01:58 05/11/24 23:35
Lab Results
05/07/24 22:45
Sodium 138 mmol/L (135-145) 05/07/24 22:45
Potassium 4.0 mmol/L (3.5-5.1) 05/07/24 22:45
BUN 11 mg/dl (7-17) 05/07/24 22:45
Glucose 116 mg/dl (70-99) H 05/07/24 22:45
Calcium 9.6 mg/dl (8.4-10.2) 05/07/24 22:45
Patient Allergies
No Known Allergies Allergy (Verified 03/24/24 20:34)
Review of Systems
-
History Source: Patient
All other systems: Reviewed and negative
Constitutional: No Symptoms
EENT: No Symptoms Reported
Respiratory: No Symptoms
Cardiac: No Symptoms
Abdomen/GI: No Symptoms
Genitourinary: No Symptoms
Musculoskeletal: No Symptoms
Skin: No Symptoms
Neuro: Weakness
Endocrine: No Symptoms
Hematologic / Lymphatic: No Symptoms
Allergy / Immunology: No Symptoms
Physical Exam
-
General: Appears in Distress and Appears Chronically Ill
Eyes: No Ptosis
HEENT: Normocephalic
Neck: No Bruits Bilaterally
Respiratory: Clear to Auscultation
Cardiac: Regular Rhythm
GI: Soft and Non-tender
Skin: Warm and Dry; Negative Rash
Extremities: No Edema
Psych: Negative Confused
Extended Neurological Exam
Attention Span & Concentration: Other (Tired appearing, mild psychomotor slowing and concentration difficulty, conversational)
Memory: Unremarkable
Tremor: Hand Tremor Absent
Involuntary Movement: None
Speech: Quality Unremarkable and Quantity Unremarkable
Cranial Nerve II: Left Eye: Pupillary Reactivity Unremarkable and Pupillary Size Unremarkable
Cranial Nerves III, IV, : Extraocular Movement: Extraocular Movement Full in all Directions
Muscle Bulk & Tone: Other (Severe lower extremity bilateral spasticity)
[2024-05-12 07:58] VITALS: BP 113/88
[2024-05-12] MEDS: NEURONTIN 100 MG PO (08:06)
[2024-05-12] MEDS: LIORESAL 20 MG PO ×4 (08:06→22:50)
[2024-05-12] MEDS: DETROL LA 2 MG PO ×2 (08:07→20:45)
[2024-05-12] MEDS: CELEXA 20 MG PO (08:07)
[2024-05-12] MEDS: VITAMIN D3 (cholecalciferol) 50 MCG PO (08:07)
[2024-05-12] MEDS: ZANAFLEX 4 MG PO ×3 (08:07→22:51)
[2024-05-12] MEDS: VITAMIN B-12 1000 MCG PO (08:08)
[2024-05-12] MEDS: XANAX 1 MG PO (08:08)
[2024-05-12] MEDS: TYLENOL 650 MG PO (08:10)
[2024-05-12 08:18] LABS: Blood Urea Nitrogen 10 mg/dl (7-17); Calcium 9.9 mg/dl (8.4-10.2); Carbon Dioxide 28 mmol/L (22-30); Chloride 103 mmol/L (98-107); Estimated Creatinine Clearance 79 ml/min; Glucose 93 mg/dl (70-99); Potassium 3.6 mmol/L (3.5-5.1); Sodium 140 mmol/L (135-145); eGFR > 60.00
[2024-05-12] MEDS: NSS 1000 IV (09:59)
--- NOTE | 2024-05-12 10:29 | W.PN.UPDATE ---
Update Note
Progress Note Update
Case discussed with Dr. Herrera. Patient will receive a dose of steroid and the baclofen dose will be increased. Last systolic blood pressure 113. Stop IV fluids. Patient remains medically stable for discharge. Case management aware.
[2024-05-12] MEDS: SOLU-MEDROL PF 60 MG IV (11:17)
--- NOTE | 2024-05-12 11:30 | CM ---
Addendum entered by VICKI Pendleton 05/12/24 16:25:
Spoke with patient's spouse to update. Requested skilled facilities as a back up plan in the event that [facility] is unable to offer a bed again. Patient's spouse chose the following: [facility], [facility], [facility], [facility], [facility]. Will send
referrals out to requested facilities. Attending updated.
Addendum entered by VICKI Pendleton 05/12/24 12:49:
Received call back from [facility] who left a voice mail stating that she has no bed availability for this week. She stated that she is unsure of next week. Maddie understands that patient is cleared for discharge.
Reviewed psych note.
Placed a call to patient's spouse who stated that he really feels patient would benefit from acute rehab. He stated that her not leaving the house in three years and other limitations that she has that are documented are mental not physical as she
gets very depressed. Reviewed PT notes. Patient has made improvement since her first few assessments.
Placed a call to odilon Maza for [facility], and requested she review/reconsider patient for acute as patient has been making progress with PT/OT here and spouse feels that she can objectively participate in a more rigorous therapy regimen.
Shaunna stated that she will review her bed availability as well as patient's clinical information and return call to .
Original Note:
Reviewed chart, spoke with attending who stated that patient is medically cleared for discharge. Spoke with Maddie in [facility] who asked for referral to be sent to [phone]. She stated that she would review all clinical
information and return call with an update. Will talk to patient and her spouse today to get SNF options.
Plan: Case management will continue to follow and assist with discharge planning. [facility] SNF is auth can be obtained through secondary.
--- NOTE | 2024-05-12 11:30 | CON.MD ---
Consultation - Medical
-
patient seen chart reviewed. discussed with nursing and a call is in to dr lozada. the patient is a 49 year old woman with MS. she is known to this commercial insurance underwriter from a consult in february of this year for auditory hallucinations which were thought to be
hypogogic and not in need of rx. we also discussed si at that time and she was adamantly not suicidal. this consult was ordered bc comments she had made about not wanting to be alive. she denies that she would ever take her own life bc it would hurt
family. it has however been a very stressful few days. she is here bc pain of spasms attributed to MS. dilaudid and valium have been stopped bc issues w bp and sedation (bp went down to 70/44 last night.). she is currently taking xanax one mg bid
and tizanidine gabapentin and baclofen being managed by dr peraza who has recommended that a baclofen pump might be advantageous in the future. she is currently in a lot of discomfort. she had been vaping cbd/thc at home but vaping not allowed
here. cbd/thc gummies have been helpful at home to take the edge off. sleep not good. appetite is fair. being in the hospital is very difficult for her. she feels the pain gets intense and it is hard for her to get prn in a timely fashion. she
has been struggling with ms for years and sees her future as becoming more and more limited and painful and she does think at times that hospice or comfort care might be desirable although she does not want to leave her 23 yr old son whom she says
will be heartbroken.s he also feels that her illness has had a very negative impact on his life already and this pains her
past psych hx patient taking celexa 20 mg bid somewhat helpful for depression
medical hx patient with ms. admitted for pain/spasms. patient does have hx of sz last admit. labs not remarkable. ecg done in feb w normal qtc
fh denied
substance abuse denied
social h supportive son is 23 yrs old. patient on disability
mse alert ox3 cooperative in some physical distress. affect appropriate mood was sad and tearful. patient is not suicidal no psychosis intelligence aver insight judgment ok
dx unspecified depression chronic pain secondary to MS spasms
recommendations pain is relieved by vaping but that is not allowed in hospital bc fire hazard. asked her if h can bring in her cbd/thc gummies and i will discuss w pharmacy how to dispense. would switch celexa to cymbalta which is better from
chronic pain. restart dilaudid but at the same time specify bp parameters given reduced bp last evening and reduce xanax to 0.5 bid perhaps eventual dc as opiates and bzp are not a good mix. will visit w patient whiles he is here and offer support.
i do recommend she follow up at [facility] for the baclofen pump. dc one to one.. not needed.
[2024-05-12 13:22] VITALS: BP 108/72
[2024-05-12 15:44] VITALS: BP 120/66
[2024-05-12] MEDS: NEURONTIN 300 MG PO ×2 (15:48→22:50)
[2024-05-12] MEDS: LOVENOX 40 MG SC (17:53)
--- NOTE | 2024-05-12 18:01 | W.PN.REHAB ---
Documented by User: Chelita Nance PA-C 05/13/24 08:35
Today's Communication / Plan
-
see above
Assessment/Function
-
Assessment:
AOx 3, NAD, pleasant. Resting in bed
Cardiovascular: Heart: regular, no murmur
Pulses: dorsalis pedis 2+ bilaterally
Respiratory: Respiratory Effort/Chest Expansion: normal ������� Auscultation: Clear to auscultation bilaterally
Gastrointestinal: abdomen not tender, no distension, normal abdominal bowel sounds
Neurology Exam:
Orientation: Alert, Oriented to self, Time, Place
Memory: Intact for immediate medical concerns
Higher cortical function
Comprehension: Intact
Two step command: Intact
Naming: Intact
Musculoskeletal:
Motor: (Manual muscle scale 0-5)
Muscle SA EF WE EE FF FA HF KE DF EHL PF
Right� 4 4 3 4 � � 1 1 0 1 0
Left 4 4 3 4 � � 1 1 0 1 0
Tone: increased tone in limbs
Range of Motion: significantly diminished rom of bilateral ankles worse on the left. Left foot slightly inverted while lying in bed.
�
Function:
Bed Mobility:Dependent
Transfers:Mod assist
Ambulation: sidesteps 2 feet to edge of bed with rolling walker�min assist x 2. No further ambulation due to left foot not touching floor due to spasticity.
Steps:none
ADL's:
Plan
-
Assessment 49-year-old female with PMH of (multiple sclerosis) presented to [facility] ED on for evaluation of abrupt worsening ambulatory dysfunction, legs weakness, and spasms. Currently on baclofen, Tizanidine, IV Dilaudid, Valium. Had tried
several MS medications that were ineffective. Is on Baclofen and Tizanidine at home.
Plan
PT/OT to increase independence with ADLs, improve balance, coordination, endurance, strength, mobility, community reintegration, decreased burden of care on others and family education.
MS Exacerbation: Will follow up OP with her neurologist to further discuss treatment options.
Spasticity:� baclofen increased to 20mg qid, Tizanidine 4mg tid. Continue range of motion exercises and stretching program. Would benefit from SNF for recovery and medical management prior to return home. Recommending an evaluation for botox and
IT pump as treatment options. May reach to [facility] [place] for an appointment with Dr. Lassiter or a facility of her choice.
Psych/Anxiety/Depression: recently seen by Psychology .�Currently on Xanax 1mg bid, Celexa 20mg bid. Monitor mood, adjust medications as needed. Denies thought of harming herself.
Pain: acetaminophen as needed, IV Dilaudid. Gabapentin 300mg tid. Recommending converting IV med to po with goal for discharge. Minimizing and/or voiding narcotics and maximizing other analgesics meds as tolerated.
Bowel: Colace and Senna, PRN bisacodyl.
Bladder: Time void, PVRs, PRN straight cath. Continue on Detrol
GI Prophylaxis: Pantoprazole
DVT Prophylaxis: Mechanical and Lovenox
Pulmonary: Incentive spirometry
Safety: Continue to reinforce assistance with all transfers.
Functional and Medical Goals: Modified Independent with ADL�s, ambulation, transfers to her baseline
Discharge destination: SNF with recommendation of outpatient evaluation for Botox and IT pump.
Summary of recommendations: Patient with exacerbation of Multiple Sclerosis associated with ambulatory dysfunction due to severe spasticity and legs weakness. Patient is still unable to ambulate no more than sidesteps of 2 feet to edge of her bed
due to spasticity and the severity of her left foot spasticity unable to touch the floor. Not an ideal candidate for acute inpatient rehabilitation due to functional limitations and inability to tolerate intense 3 hours of therapy daily.
Subjective
-
Date of Service: May 12, 2024
Patient Complaints: Doing a little better with spasticity, but still with significant pain and spasms limiting her ability to walk. Reports that she is currently taking the same dose of Baclofen that she was already taking at home. She spoke with
her neurologist and will have further discussion about other medication options for her MS. She denies chest pain, shortness of breath, vomiting, nausea, fever, chills, headache, dysuria, abdominal pain, thought of harming herself.
Vital Signs / Labs
-
Vital Signs and Labs:
Temp Pulse Resp BP Pulse Ox
98 F 95 16 120/66 97
05/12/24 15:44 05/12/24 15:44 05/12/24 15:44 05/12/24 15:44 05/12/24 15:44
05/07/24 22:45
05/12/24 06:53

Documented by User: Kaleb Niño MD 05/13/24 12:40
Plan
-
Assessment 49-year-old female with PMH of (multiple sclerosis) presented to [facility] ED on for evaluation of abrupt worsening ambulatory dysfunction, legs weakness, and spasms. Currently on baclofen, Tizanidine, IV Dilaudid, Valium. Had tried
several MS medications that were ineffective. Is on Baclofen and Tizanidine at home.
Plan
PT/OT to increase independence with ADLs, improve balance, coordination, endurance, strength, mobility, community reintegration, decreased burden of care on others and family education.
MS Exacerbation: Will follow up OP with her neurologist to further discuss treatment options.
Spasticity:� baclofen increased to 20mg qid, Tizanidine 4mg tid. Continue range of motion exercises and stretching program. Would benefit from SNF for recovery and medical management prior to return home. Recommending an evaluation for botox and
IT pump as treatment options. May reach to [facility] [place] for an appointment with Dr. Lassiter or a facility of her choice.
Psych/Anxiety/Depression: recently seen by Psychology .�Currently on Xanax 1mg bid, Celexa 20mg bid. Monitor mood, adjust medications as needed. Denies thought of harming herself.
Pain: acetaminophen as needed, IV Dilaudid. Gabapentin 300mg tid. Recommending converting IV med to po with goal for discharge. Minimizing and/or voiding narcotics and maximizing other analgesics meds as tolerated.
Bowel: Colace and Senna, PRN bisacodyl.
Bladder: Time void, PVRs, PRN straight cath. Continue on Detrol
GI Prophylaxis: Pantoprazole
DVT Prophylaxis: Mechanical and Lovenox
Pulmonary: Incentive spirometry
Safety: Continue to reinforce assistance with all transfers.
Functional and Medical Goals: Modified Independent with ADL�s, ambulation, transfers to her baseline
Discharge destination: SNF with recommendation of outpatient evaluation for Botox and IT pump.
Summary of recommendations: Patient with exacerbation of Multiple Sclerosis associated with ambulatory dysfunction due to severe spasticity and legs weakness. Patient is still unable to ambulate no more than sidesteps of 2 feet to edge of her bed
due to spasticity and the severity of her left foot spasticity unable to touch the floor. Not an ideal candidate for acute inpatient rehabilitation due to functional limitations and inability to tolerate intense 3 hours of therapy daily.
Attending Statement:
I did not see the patient. Reviewed care plan with physician campaign assistant MANNY Nance 05/12/24, reviewed current functional status and care plan. I agree with the above plan as documented by MANNY Nance with adjustments made as necessary.
--- NOTE | 2024-05-12 20:16 | PTCARENOTE ---
Pt requested updated medication list. This RN attempted to print out medications via discharge summary section. Unable to print out medication list, discharge packet listed in reports.
[2024-05-12 20:41] VITALS: BP 125/75
[2024-05-12] MEDS: XANAX 0.5 MG PO (20:46)
[2024-05-12] MEDS: FLUSH (NSS) 2 FLUSH IV (20:46)
[2024-05-12] MEDS: CYMBALTA DELAYED RELEASE 20 MG PO (22:50)
[2024-05-12] MEDS: DESYREL 50 MG PO (22:51)
[2024-05-12 23:30] VITALS: BP 106/57
[2024-05-13] MEDS: DILAUDID 0.5 MG IV ×3 (00:47→19:03)
[2024-05-13] MEDS: FLUSH (NSS) 2 FLUSH IV (00:48)
--- NOTE | 2024-05-13 03:21 | PTCARENOTE ---
Throughout shift, pt rang call [place] multiple times with complaints of purewick not working. Pt tearful, agitated, and angry. Pt raising voice at this RN and PCT multiple times. Pt showed this RN her phone with notes gregory stating when purewick is
working and when it is not with time stamps. Pt stated, 'I have been taking notes for 25 years'. Pt stated, 'This only started to happen when this shift started'. PCT from who was had patient night before stated stated, 'The purewick was not working
then, she had to be changed due to incontinence about 6 times'. Purewick removed. Pt stated, 'II don't understand why it is not back on, I am frustrated'. Canister, tubing and purewick replaced.
[2024-05-13 07:28] VITALS: BP 128/71
--- NOTE | 2024-05-13 08:20 | W.PN.HOSP.TC ---
Addendum entered and electronically signed by Prince Breen MD 05/13/24 09:23:
As per discussion with case management the patient will go home with visiting nurses.
Total time spent on d/c = 33 min. This included today's physical exam, progress note, review of laboratory and diagnostic data, preparation of discharge documents and prescriptions, and discussions about the pt's hospital course and discharge plan
with the patient and other biomedical photographer involved in the patient's care.
Original Note:
Today's Communication/Plan
-
see bold
Assessment / Plan
Assessment / Plan
Gen: NAD, AAOx3, appears chronically ill malnourished.
Eyes: EOMI, PERRLA, no scleral icterus.
Neck: supple.
CV: RRR, +S1/S2, no m/r/g.
Resp: remains CTAB, no rales, wheezes, or rhonchi.
Abd: +BS, soft, NT, ND
Skin: No rashes.
Neuro: CN 2-12 intact
Psych: normal mood and affect
MS:
-with possible flare, presented with leg weakness, leg spasms, ambulatory dysfunction
-appreciate neuro recs
-morphine/Keppra stopped but pt currently on IV dilaudid PRN
-Baclofen increased to 20mg PO QID
-cont tizanidine (increased dose)
-outpt initiation of multiple sclerosis medication as well as MRI of T and L-spines
-as per PMR, consider intrathecal pump.
Suicidal ideation:
-cleared by psych on 05/12/24
Hypotension:
-s/p IVF bolus and brief maintenance IVFs
-was likely related to dilaudid, and other medications
On 05/10/24 I had an extensive discussion with the patient's and the patient's at bedside. The patient's nurse, Gen Ashley, was present at bedside. I explained specifically that at this point in time I am not comfortable increasing the
patient's baclofen to 20 mg p.o. 4 times daily. I explained that the patient is medically cleared for discharge and that physiatry is recommending SNF. I explained that the patient case coordinator will work with the patient and her to set up a safe
discharge. All questions were asked and answered.
On 05/12/24 I had an extensive discussion with the patient and her at bedside regarding her pain management. I explained that due to her hypotension it limits what medications I can give her. I explained that I am increasing her Neurontin.
I explained that I do have to stop her Dilaudid and she cannot have further Valium at this moment. All of this was discussed with Dr. Herrera who will see her shortly. The patient's also mentioned that the patient 'does not want to be on
this earth' anymore. Pt's states that the pt stated she wants to be discharged so she can go home and 'off herself.' Will consult psychiatry (discussed with Dr. Thomas over the phone).
FULL/Lovenox
Medically stable for d/c. Case management aware.
Anticipated Discharge: Today
Subjective/Interval History
-
Date of Service: May 13, 2024
No new complaints.
Objective Data
-
Vital Signs:
Vital Signs
Temp Pulse Resp BP Pulse Ox
97.8 F 76 16 128/71 99
05/13/24 07:28 05/13/24 07:28 05/13/24 07:28 05/13/24 07:28 05/13/24 07:28
I&O
05/12/24 05/13/24 05/14/24
06:59 06:59 06:59
Intake Total 840 / 840 3160 / 3160
Output Total 1800 / 1800 1900 / 1900
Balance -960 / -960 1260 / 1260
[2024-05-13] MEDS: NEURONTIN 300 MG PO ×2 (09:14→15:44)
[2024-05-13] MEDS: DETROL LA 2 MG PO (09:14)
[2024-05-13] MEDS: ZANAFLEX 4 MG PO ×2 (09:14→15:44)
[2024-05-13] MEDS: XANAX 0.5 MG PO (09:14)
[2024-05-13] MEDS: CELEXA 20 MG PO (09:15)
[2024-05-13] MEDS: VITAMIN B-12 1000 MCG PO (09:15)
[2024-05-13] MEDS: LIORESAL 20 MG PO ×3 (09:15→17:34)
[2024-05-13] MEDS: VITAMIN D3 (cholecalciferol) 50 MCG PO (09:15)
--- NOTE | 2024-05-13 09:24 | W.DCSUMMARY ---
Addendum entered and electronically signed by Prince Breen MD 05/13/24 09:42:
Med change: Xanax stopped, Valium 5mg PO BID started as per discussion with Dr. Herrera.
Addendum entered and electronically signed by Prince Breen MD 05/13/24 09:31:
as per Dr. Thomas, stop Celexa in 2 days
Original Note:
Discharge Summary
Discharge Data
Date of Admission: 05/08/24
Date of Discharge: 05/13/24
-
Pending Results: No
Hospital Course
Primary diagnoses:
Bilateral lower extremity pain and spasm due to multiple sclerosis
Suicidal ideation
Hypertension
Secondary diagnoses:
None
Consultants:
Psychiatry
Neurology
Physiatry
Imaging:
None
Hospital course: 49-year-old female who presented with a chief complaint of bilateral lower extremity weakness as outlined H&P done on admission. She also had leg spasms/pain and ambulatory dysfunction. Patient was seen by neurology and her
medications were adjusted while hospitalized. Most notably her Keppra was stopped, her baclofen was increased, her tizanidine was increased, and she was started on Neurontin. She was seen in consultation by physiatry and intrathecal pump was
recommended. She should have MRIs of her T and L-spine after discharge. While hospitalized she had suicidal ideation and was cleared by psychiatry on May 14, 2024. She also had hypotension that was asymptomatic. She received IV fluid bolus and
brief maintenance IV fluids. This was likely related to Dilaudid and other medication side effects. Patient is being discharged in medically stable condition.
Discharge Plan
-
Patient Disposition: Home with Home Care
Discharge Diagnosis/Procedures: Bilateral lower extremity pain and spasm due to multiple sclerosis
Condition: Good
Diet: No restrictions
Activity: With assistance and As tolerated
Driving Restrictions: No driving
Other Services: VN
Referrals:
UNKNOWN - PT NOT,[facility] [Family Provider] - in less than 1 week
Prescriptions:
New
tizanidine 2 mg Tablet
4 mg PO TID Qty: 90 0RF
baclofen 20 mg Tablet
20 mg PO QID Qty: 120 0RF
gabapentin 300 mg Capsule
300 mg PO TID Qty: 90 0RF
duloxetine 20 mg Capsule,Delayed Release(Dr/Ec)
20 mg PO HS Qty: 30 0RF
Continued
tolterodine 2 mg capsule,extended release 24hr
2 mg PO BID
trazodone 50 mg tablet
50 mg PO HS
citalopram 20 mg tablet
20 mg PO BID
multivitamin Tablet
1 tab PO DAILY
cyanocobalamin (vitamin B-12) [Vitamin B-12] 1,000 mcg Tablet
1,000 mcg PO DAILY
magnesium 250 mg Tablet
500 mg PO DAILY
cholecalciferol (vitamin D3) [Vitamin D3] 50 mcg (2,000 unit) Tablet
50 mcg PO DAILY
alprazolam 0.5 mg tablet
1 mg PO BID
Patient Comments:
03/24/2024: LAST FILLED 03/24/24, 120 TABS FOR 30 DAYS FROM [id number]
Discontinued
tizanidine 2 mg tablet
2 mg PO TID
spironolactone 100 mg tablet
100 mg PO DAILY
baclofen 20 mg tablet
20 mg PO BID 30 Days Qty: 60 0RF
Lion's Walter
2,100 mg PO BID
Turmeric Gummies 250 MG
250 mg PO DAILY
levetiracetam [Keppra] 500 mg tablet
500 mg PO BID Qty: 60 0RF
Discharge Orders:
Discharge Patient (As Directed); Ordered 05/13/24
Ordered By: Prince Breen
Discharge Date and Time
Print Language: MALAY
[2024-05-13] MEDS: SENOKOT-S 1 TABLET PO (10:19)
[2024-05-13] MEDS: MIRALAX 17 GRAMS PO (10:19)
--- NOTE | 2024-05-13 11:20 | CM ---
Received notification from Shaunna at [facility] that the indication from their Physiatry is SNF level of care. Placed a call to Marlen in admissions at [facility], one of the facilities that was chosen to send referral. Marlen stated that she has
bed availability.
Placed a call to patient's secondary, [facility], and spoke with a customer success representative named Shaunna, who reviewed clinical and authorized patient for 5 days skilled, 05/13-05/17. Auth number is [id number]
#For report [phone] and fax# [phone]
placed a call to patient's spouse and he is agreeable to transfer.
Attending updated. Will update RN.
Plan: Case management will continue to follow and assist with discharge planning. [facility] today.
[2024-05-13 11:43] VITALS: BP 100/59; PULSE 79; PULSE 82
--- NOTE | 2024-05-13 12:14 | W.PN.NEURO.1 ---
Today's Communication / Plan
-
-Baclfoen 20 mg QID
-Tizanidine 4 mg TID
-Gabapentin 300 mg TID
-Stop Alprazolam, start Diazepam 5 mg BID scheduled
-For the future would seek evaluation for intrathecal baclofen pump, botox injections
-I will take out order for MRI spine, patient doesn't feel she can tolerate the study and I do not feel it is essential as inpatient as suspicion for a new structural lesion in the spine that would global climate change researcher is very low
Neuro Assessment/Plan
Assessment
Patient is a 49-year-old man with a past ministry of multiple sclerosis with bilateral lower extremity spasticity, recent hospitalization with status epilepticus thought to be provoked by urinary tract infection presents to the hospital with
bilateral lower extremity weakness pain and ambulatory difficulties worse than baseline.
Patient and her report she has been taking baclofen 20 mg 3 times daily at home
She is on tizanidine 2 mg 3 times daily at home
Medication alprazolam 1 mg twice daily as well
Patient denies any new dysarthria she has chronic dysphagia no new vision changes or double vision no change in upper extremity strength. No bowel or bladder function no new urinary incontinence or retention or bowel incontinence.
Patient had not been on immune medication therapies for multiple sclerosis and more than 5 to 10 years sided concerns over side effects and safety risks she is considering alcoholism for the future, sees Dr Mace for neurology as outpatient
Patient and her requested transfer to [facility] for further expertise and care of multiple sclerosis. I discussed the case with [facility] center and neurologist there Dr. Jacobson, who did not see that transfer was indicated,
suggested MRI of the spine for evaluating for any new structural spine lesions but otherwise we will be focusing on medications for treatment of pain and spasticity and felt that intrathecal baclofen pump would be helpful for the future.
We have increased patient's Tizanidine from home dose here in hospital, she has been on 20 mg BID baclofen in hospital, also has received intermittent IV valium and IV dilaudid PRN. Started on low dose Gabapentin 100 mg TID.
My suspicion for a new contrast-enhancing lesion of the spine producing the patient's symptoms is low. I feel this is more likely related to chronic effects of multiple sclerosis on the spine producing chronic problems of lower extremity spasticity
which has become severe with pain spasms and ambulatory difficulty. No obvious severe metabolic derangements that are correctable that could be helpful for treating her present problem.
Subjective/Objective
Subjective Data
Date of Service: May 13, 2024
No acute events, patient very distressed, anxious, still with leg pains but did show some improvements in leg spasticity yesterday
Objective Data
Vital Signs
Temp Pulse Resp BP Pulse Ox
97.8 F 76 16 128/71 99
05/13/24 07:28 05/13/24 07:28 05/13/24 07:28 05/13/24 07:28 05/13/24 07:28
Lab Results
05/07/24 22:45
05/12/24 06:53
Sodium 140 mmol/L (135-145) 05/12/24 06:53
Potassium 3.6 mmol/L (3.5-5.1) 05/12/24 06:53
BUN 10 mg/dl (7-17) 05/12/24 06:53
Glucose 93 mg/dl (70-99) 05/12/24 06:53
Calcium 9.9 mg/dl (8.4-10.2) 05/12/24 06:53
Patient Allergies
No Known Allergies Allergy (Verified 03/24/24 20:34)
Review of Systems
-
History Source: Patient
All other systems: Reviewed and negative
Constitutional: No Symptoms
EENT: No Symptoms Reported
Respiratory: No Symptoms
Cardiac: No Symptoms
Abdomen/GI: No Symptoms
Genitourinary: No Symptoms
Musculoskeletal: No Symptoms
Skin: No Symptoms
Neuro: Weakness
Endocrine: No Symptoms
Hematologic / Lymphatic: No Symptoms
Allergy / Immunology: No Symptoms
Physical Exam
-
General: Appears in Distress
Eyes: No Ptosis
HEENT: Normocephalic and Atraumatic
Respiratory: No Dyspnea
Cardiac: No Murmur and S1/S2
GI: Soft and Non-tender
Skin: Warm and Dry; Negative Rash
Extremities: No Clubbing, No Cyanosis and No Edema
Psych: Negative Confused or Agitated
Extended Neurological Exam
Mood & Affect: Depressed and Anxious
Attention Span & Concentration: Awake, Alert and Interactive
Memory: Able to Recall
Tremor: Hand Tremor Absent
Involuntary Movement: None
Speech: Quality Unremarkable and Quantity Unremarkable; Negative Dysarthric
Cranial Nerve II: Left Eye: Pupillary Reactivity Unremarkable and Pupillary Size Unremarkable
Cranial Nerve II: Right Eye: Pupillary Reactivity Unremarkable and Pupillary Size Unremarkable
Cranial Nerves III, IV, : Extraocular Movement: Extraocular Movement Full in all Directions
Cranial Nerve VII: Facial Symmetry: Normal Facial Symmetry
[2024-05-13 13:18] VITALS: BP 120/68
[2024-05-13] MEDS: TYLENOL 650 MG PO (14:48)
[2024-05-13 15:48] VITALS: BP 114/62
[2024-05-13] MEDS: LOVENOX SC (17:33)
[2024-05-13] MEDS: VALIUM 5 MG PO (18:41)
[2024-05-13 19:00] VITALS: BP 108/63
== END 2024-05-13 19:20 ==
LOC: 3 WEST ACU 00:37
PROVIDERS: Nurse Practitioner Gerontology; ADMITTING PHYSICIAN Internal Medicine; ATTENDING PHYSICIAN Internal Medicine; CONSULT PHYSICIAN Psychiatry & Neurology Neurology; CONSULT PHYSICIAN Psychiatry & Neurology Psychiatry; EMERGENCY PHYSICIAN Student in an Organized Health Care Education/Training Program; OTHER PHYSICIAN Physical Medicine & Rehabilitation
DX: G35 Multiple sclerosis (principal); M79.604 Pain in right leg; R25.2 Cramp and spasm; F41.1 Generalized anxiety disorder; R13.10 Dysphagia, unspecified; R42 Dizziness and giddiness; Z87.891 Personal history of nicotine dependence; F41.9 Anxiety disorder, unspecified; F32.A Depression, unspecified; R45.851 Suicidal ideations; I95.9 Hypotension, unspecified; I10 Essential (primary) hypertension
CPT/HCPCS: 51701; 80048; 80053; 81003; 81015; 83735; 85025; 96374; 96375; 97110; 97162; 97166; 97530; 97535; 99284; G0378

== ENCOUNTER 2024-08-22 11:33 | Inpatient (IN) | payer MEDICARE, OTHER, SELFPAY ==
[2024-08-22] VITALS (16 sets, daily range): BP systolic 78–155; BP diastolic 44–83; BMI 22.5
--- NOTE | 2024-08-22 08:33 | ED.GENMED ---
History of Present Illness
General
Chief Complaint: Fall
Source: patient
Time Seen by Provider: 08/22/24 06:54
History of Present Illness
History of Present Illness:
49-year-old female presents to the emergency room for evaluation of left hip pain. Patient has history of multiple sclerosis from which she has limited mobility. Patient actually was hospitalized here at [facility] in April and post admission had a
long stay in rehab. After rehab she was able to ambulate fairly well for her with a walker. Unfortunately 4 days ago while ambulating she had a fall. She fell to her left side. She is continue to have left sided hip and leg pain. Her
neurologist recommended the patient come get some imaging to rule out a fracture. Patient has been able to weight-bear but with discomfort. She also has some mild low back pain.
Past History
Past History
ED Past Medical History: Seizures and Other (multiple sclerosis, rosacea, psoriasis, insomnia, vitamin D deficiency, dysphagia, overactive bladder, cachexia, gait dysfunction)
ED Past Surgical History: Appendectomy, and Other (Otoplasty)
Patient has exhibited threatening behavior?: No
PSI?: No
Social History
Tobacco: Former smoker
Drug: None
Personal:
Living: with family
Employment: Disabled
Family History
Family History: Other (reviewed and noncontributory)
Phy Exam
Physical Exam
Physical Exam:
General: Awake, Alert, Oriented X3. No acute distress, appears chronically ill
Vitals: unremarkable
Head: Atraumatic
Eyes: Pupils equal, EOMI
Throat: Airway intact, no exudates
Neck: Trachea midline
Lungs: Clear and equal b/l
Heart: Regular rate, no murmurs
Abd: Soft, Nontender, No pulsatile mass
Neuro: Generalized weakness, no focal weakness
Skin: Warm, dry, no rash
Extremities: Pain with extension at the hip, pulses equal b/l, no edema
Course
Orders/Labs/Results
Orders:
Orders
08/22/24 07:08
Hip, Left 2-3 Views [CR Hip - LT w/wo Pel 2-3 Vw*] Urgent
Comment:
Reason For Exam: left hip pain
Include a pelvis x-ray?: Yes
08/22/24 08:18
Basic Metabolic Panel Urgent
Complete Blood Count/With Diff Urgent
Vital Signs
Initial and Last Documented VS:
Initial Vital Signs
Temp Pulse Resp BP Pulse Ox
98.1 F 84 18 139/68 95
08/22/24 06:47 08/22/24 06:47 08/22/24 06:47 08/22/24 06:47 08/22/24 06:47
Last Documented Vital Signs
Temp Pulse Resp BP Pulse Ox
98.1 F 74 18 99/63 95
08/22/24 06:47 08/22/24 08:09 08/22/24 08:09 08/22/24 08:09 08/22/24 08:09
MDM/Problems Addressed
Differential Diagnosis Includes:
Hip fracture, pelvic fracture, contusion
MDM/Problems Addressed:
X-ray confirms the presence of a left hip fracture. Communicated with Dr. Jaime who is on-call for orthopedics. Patient will be admitted to the hospitalist service.
*Radiology
Radiology exam reviewed: preliminary read by ED provider (Personal review of the patient's hip x-ray shows a left hip fracture)
*Pulse Oximetry
Patient hypoxic: no
*Critical Care Note
Total Time (30-74mins, 75-104mins- exclusive of procedures): Not Applicable
ED Attending Note
-
Portions of this chart may have been created with voice recognition software.� Occasional wrong word or��sound alike� substitutions may have occurred due to the inherent limitations of voice recognition software.
Discharge Plan
Departure
Patient Disposition: Admit
Date of Disposition: 08/22/24
Time of Disposition: 08:36
Admit to: Med/Surg
Presentation/result/management discussed w/ accepting MD/DO: Hospitalist
Condition: Fair
Discharge Problem:
Closed fracture of left hip
Prescriptions:
No Action
tolterodine 2 mg capsule,extended release 24hr
2 mg PO BID
trazodone 50 mg tablet
50 mg PO HS
citalopram 20 mg tablet
20 mg PO BID
multivitamin Tablet
1 tab PO DAILY
cyanocobalamin (vitamin B-12) [Vitamin B-12] 1,000 mcg Tablet
1,000 mcg PO DAILY
magnesium 250 mg Tablet
500 mg PO DAILY
cholecalciferol (vitamin D3) [Vitamin D3] 50 mcg (2,000 unit) Tablet
50 mcg PO DAILY
tizanidine 2 mg Tablet
4 mg PO TID Qty: 90 0RF
baclofen 20 mg Tablet
20 mg PO QID Qty: 120 0RF
gabapentin 300 mg Capsule
300 mg PO TID Qty: 90 0RF
duloxetine 20 mg Capsule,Delayed Release(Dr/Ec)
20 mg PO HS Qty: 30 0RF
diazepam [Valium] 5 mg tablet
5 mg PO BID Qty: 10 0RF
Referrals:
Jayda Teague CRNP [Family Provider] -
Interventions
Interventions:
*Risk Screen - Suicide Last Done: 08/22/24 06:47
*General Assessment Last Done: 08/22/24 06:47
*Neglect/Abuse Screening Last Done: 08/22/24 06:47
ED- Fall Risk Assessment Last Done: 08/22/24 07:20
*ED COVID-19 Vaccine History Last Done: 08/22/24 06:51
ED-Musculoskeletal Assessment Last Done: 08/22/24 07:20
ED- Neurological Assessment Last Done: 08/22/24 07:20
ED-Skin Assessment Last Done: 08/22/24 07:20
Discharge Date and Time
Print Language: POLISH
[2024-08-22 09:25] LABS: Blood Urea Nitrogen 24 mg/dl (7-17); Calcium 9.9 mg/dl (8.4-10.2); Carbon Dioxide 33 mmol/L (22-30); Chloride 104 mmol/L (98-107); Glucose 96 mg/dl (70-99); Potassium 4.4 mmol/L (3.5-5.1); Sodium 143 mmol/L (135-145); eGFR > 60.00
[2024-08-22] MEDS: MORPHINE SULFATE 4 MG IV (09:59)
[2024-08-22 10:16] LABS: % Basophils 1.5 % (0-2); % Eosinophils 24.5 % (0-6); % Immature Granulocytes 0.3 % (0-0.5); % Lymphocytes 22.4 % (20.5-51.1); % Monocytes 5.8 % (1.7-9.3); % Neutrophils 45.5 % (42.2-75.2); Absolute Basophils 0.2 10^3/uL (0-0.2); Absolute Eosinophils 2.6 10^3/uL (0-0.7); Absolute Lymphocytes 2.4 10^3/uL (1.2-3.4); Absolute Monocytes 0.6 10^3/uL (0.1-0.6); Absolute Neutrophils 4.8 10^3/uL (1.4-6.5); Hematocrit 35.9 % (37.0-47.0); Hemoglobin 11.9 g/dL (12.0-16.0); Mean Corp Hgb Conc. 33.1 g/dL (33.0-37.0); Mean Corpuscular Hgb 29.3 pg (27.0-31.0); Mean Corpuscular Volume 88.4 fL (81.0-99.0); Mean Platelet Volume 10.3 fL (7.4-10.4); Nucleated Red Blood Cells % 0 %; Platelet Count 282 10^3/uL (130-400); Red Blood Cell Count 4.06 10^6/uL (4.20-5.40); Red Cell Dist. Width 12.7 % (11.5-14.5); White Blood Cell Count 10.5 10^3/uL (4.8-10.8)
--- NOTE | 2024-08-22 11:09 | HPS.HSE ---
Addendum entered and electronically signed by Reginald Ward MD, Resident 08/29/24 14:50:
Per CDI query.
49 year-old female with Left Hip fracture due to Low level fall
Addendum entered and electronically signed by Pipo Valencia MD 08/22/24 12:07:
49-year-old female with multiple sclerosis not on any treatments for at least 5 to 6 years if not more than that. She stated that she could not take the side effects of the medicines. She follows up with Dr. Mace Normally ambulates with a
walker to the bathroom. She needs some help to get in the shower but able to do it herself. She cannot do anything more than that at baseline. Has been takes care of her other needs. Patient had a fall 4 days ago and had pain on the left hip.
They decided to wait it out for 4 days. Today called the neurologist who asked him to go to the ER. She did not strike her head during the fall
I personally performed a history and physical exam of the patient and discussed management with the resident. I reviewed the resident's note and agree with the documented findings and plan of care HPI/CC except for changes in my documentation
Looks comfortable
Cardiovascular system S1-S2 appreciated
Chest clear to auscultation
Abdomen slightly distended but nontender bowel sounds present
Left leg externally rotated
# Left hip fracture
Medically stable to proceed to the OR
No history of chest pains or any heart condition
Discussed with orthopedics, and planning to take her to the OR possibly later today.
Pain control, bedrest until surgery
PT OT after that
# Multiple sclerosis originally diagnosed in 1998 as relapsing intermittent tach. 1 episode of seizure-like event
Follows up with Dr. Mace
Not on any treatment
Continue baclofen, Zanaflex, Valium, gabapentin for symptomatic treatment
# History of episode of seizure February 2024-is not on any medicines
Even though she was started on Keppra at the end of the hospitalization it was discontinued after EEG failed to demonstrate any epilepsy and also she was treated for UTI and it was found to be metabolic in nature.
No further episodes
# Depression-continue Remeron and duloxetine
# GERD-continue PPI
# DVT prophylaxis-SCDs now and per orthopedics after surgery likely aspirin
# Full code
Discussed with orthopedics
Discussed with at bedside
Discussed with nursing
Original Note:
Family Physician
-
Family Physician: ANASTASIA King
Chief Complaint
-
Left Hip pain.
History of Present Illness
Adelaide Zacarias is a 49 year-old female with PMH of Multiple sclerosis who presents to the ED for evaluation of Left hip pain after a fall 4 days ago. Patient was recently admitted to [facility] from 05/07/2024 - 05/13/2024 for bilateral lower
extremity pain and spasm secondary to multiple sclerosis. She was discharged for a long stay in rehab. Patient reports she has been ambulating with her walker since discharge, as well as support from her for daily activities. She reports she
had a fall 4 days ago while ambulating to the rest room with her walker. Patient states she fell on her left side side without hitting her head on the floor. Patient's witnessed the fall. She denies passing out before the fall. She continued
to experience hip and leg pain post-fall, and her neurologist recommended she comes to the ER for evaluation.
Medical History
Past Medical History
Past Medical History: Reports Other (psoriasis, insomnia, dysphagia, overactive bladder, gait dysfunction, Anxiety, depression, multiple sclerosis. )
Past Surgical History: Reports Appendectomy
Social History
Tobacco: Former Smoker (quit 2000)
Alcohol: None
Drug: None
Personal:
Living: With Family
Employment: Disabled
Family History
Family History: Cancer (father- Pancreatic cancer)
Allergies / Home Medications
Allergies
Allergy/AdvReac Type Severity Reaction Status Date / Time
No Known Allergies Allergy Verified 03/24/24 20:34
Home Medications
cholecalciferol (vitamin D3) 50 mcg (2,000 unit) tablet (Vitamin D3) 50 mcg PO DAILY Supplement 03/24/24
cyanocobalamin (vitamin B-12) 1,000 mcg tablet (Vitamin B-12) 1,000 mcg PO DAILY Supplement 03/24/24
magnesium 250 mg tablet 250 mg PO DAILY Supplement 03/24/24
diazepam 5 mg tablet (Valium) 5 mg PO BID #10 tabs 05/13/24
gabapentin 300 mg capsule 300 mg PO TID #90 caps 05/13/24
baclofen 20 mg tablet 20 mg PO TID 08/22/24
duloxetine 60 mg capsule,delayed release 60 mg PO DAILY 08/22/24
mirtazapine 15 mg tablet 15 mg PO HS 08/22/24
oxycodone-acetaminophen 10 mg-325 mg tablet 1 tab PO Q6HPRN PRN severe pain 08/22/24
pantoprazole 20 mg tablet,delayed release 20 mg PO DAILY 08/22/24
therapeutic multivitamin 1 tab PO DAILY 08/22/24
tizanidine 4 mg capsule 4 mg PO TID 08/22/24
Allergies reflects when Allergies were last updated in [facility].
Home Medications with original date entered in [facility]
Allergy/Medication List:
Allergies
Allergy/AdvReac Type Severity Reaction Status Date / Time
No Known Allergies Allergy Verified 03/24/24 20:34
Home Medications
cholecalciferol (vitamin D3) 50 mcg (2,000 unit) tablet (Vitamin D3) 50 mcg PO DAILY Supplement 03/24/24
cyanocobalamin (vitamin B-12) 1,000 mcg tablet (Vitamin B-12) 1,000 mcg PO DAILY Supplement 03/24/24
magnesium 250 mg tablet 250 mg PO DAILY Supplement 03/24/24
diazepam 5 mg tablet (Valium) 5 mg PO BID #10 tabs 05/13/24
gabapentin 300 mg capsule 300 mg PO TID #90 caps 05/13/24
baclofen 20 mg tablet 20 mg PO TID 08/22/24
duloxetine 60 mg capsule,delayed release 60 mg PO DAILY 08/22/24
mirtazapine 15 mg tablet 15 mg PO HS 08/22/24
oxycodone-acetaminophen 10 mg-325 mg tablet 1 tab PO Q6HPRN PRN severe pain 08/22/24
pantoprazole 20 mg tablet,delayed release 20 mg PO DAILY 08/22/24
therapeutic multivitamin 1 tab PO DAILY 08/22/24
tizanidine 4 mg capsule 4 mg PO TID 08/22/24
Review of Systems
-
A 12 point ROS was completed and negative except as noted: Yes
Physical Exam
Vital Signs
Vital Signs
Temp Pulse Resp BP Pulse Ox
98.1 F 74 18 99/63 95
08/22/24 06:47 08/22/24 08:09 08/22/24 08:09 08/22/24 08:09 08/22/24 08:09
Physical Exam
General: No Apparent Distress
HEENT: Atraumatic
Respiratory: Clear; No Wheezes
Cardiac: S1/S2 and Regular Rhythm; No Murmur or Peripheral Edema
GI: Soft, Non Tender, Non Distended and Normal Bowel Sounds
Musculoskeletal: No Edema
Skin: Lesions (ecchymosis present on left lateral hip)
Neuro: Awake, Alert, Oriented and AO x 3
Psych: Calm
Laboratory Results
-
08/22/24 08:58
08/22/24 08:58
Data Reviewed
-
Lab Data: Labs Reviewed by me
Impression/Plan
-
Assessment:
Left Hip Fracture
Multiple sclerosis
Anxiety/Depression
Seizure
PLAN:
Left Hip fracture
-Orthopedic surgeon consulted
-RCRI index- Low risk for proposed surgery.
-Medically stable for OR today.
-Pain management with Tylenol, morphine as directed, stool softener regimen with colace BID, miralax PRN
Multiple sclerosis
-Does NOT take medication for management of MS sx. Last took medication >5 years ago due to severe side effects on meds.
-Continue with home meds Baclofen and Tizanidine for management of spasms.
-Continue Home gabapentin, Duloxetine.
Depression/Anxiety
-Continue Home regimen, Duloxetine, Diazepam
History of seizure
Dysphagia- Pantoprazole
Code Status: Full code
DVT ppx: SCDs
--- NOTE | 2024-08-22 13:06 | CON.ORTHO ---
Consultation
-
Date/Time Consultation Requested: Aug 23/1100
Date/Time Consultation Performed: Aug 23/1210
Requesting Provider: Sylvia (resident with Dr. Valencia)
Performing Provider: Ezequiel for [place]
Reason for Consultation: Left Hip fracture
Consultation - Orthopedics
History
Dictation#[id number]
49-year-old white female presenting to the emergency room for evaluation of left hip pain. PMH of MS (follows with Dr. Mace), seizures (currently not medicated), rosacea, psoriasis, insomnia, vitamin D deficiency, dysphagia, and OAB. Due to the
MS she has very limited mobility. She is seen in the presence of her this AM in ED23. Patient was hospitalized here at [place] in April and post admission had a long stay in rehab. After rehab she was able to ambulate fairly well for her
with a walker. Unfortunately 4 days ago while ambulating from the bathroom she had a mechanical fall. no prodrome or LOC. she did not strike her head. She fell to her left side. denies any previous issues with the left hip prior to the fall. She
is continuing to have left sided hip and leg pain. Her neurologist recommended patient obtain imaging to rule out a fracture. Patient has been able to weight-bear but with discomfort. we have been requested in consultation given left hip fracture
visualized on xrays in the ED
Allergies / Home Medications
Allergy/AdvReac Type Severity Reaction Status Date / Time
No Known Allergies Allergy Verified 03/24/24 20:34
�Medication �Instructions �Recorded
cholecalciferol (vitamin D3) 50 50 mcg PO DAILY Supplement 03/24/24
mcg (2,000 unit) tablet (Vitamin
D3)
cyanocobalamin (vitamin B-12) 1,000 mcg PO DAILY Supplement 03/24/24
1,000 mcg tablet (Vitamin B-12)
magnesium 250 mg tablet 250 mg PO DAILY Supplement 03/24/24
diazepam 5 mg tablet (Valium) 5 mg PO BID #10 tabs 05/13/24
gabapentin 300 mg capsule 300 mg PO TID #90 caps 05/13/24
baclofen 20 mg tablet 20 mg PO TID 08/22/24
duloxetine 60 mg capsule,delayed 60 mg PO DAILY 08/22/24
release
mirtazapine 15 mg tablet 15 mg PO HS 08/22/24
oxycodone-acetaminophen 10 mg-325 1 tab PO Q6HPRN PRN severe pain 08/22/24
mg tablet
pantoprazole 20 mg tablet,delayed 20 mg PO DAILY 08/22/24
release
therapeutic multivitamin 1 tab PO DAILY 08/22/24
tizanidine 4 mg capsule 4 mg PO TID 08/22/24
Vital Signs / Lab Results
Temp Pulse Resp BP Pulse Ox
98.1 F 75 16 119/79 98
08/22/24 06:47 08/22/24 11:15 08/22/24 11:15 08/22/24 11:15 08/22/24 11:15
08/22/24 08:58
08/22/24 08:58
Assessment / Plan
PE: Afeb. Bedrest. Left hip skin intact. LLE short and ER. generalized pain to palpation about the left hip. + logroll LLE. knee nontender. Deferred range of motion of the hip due to known fracture. Calf soft and nontender. DNVI LLE.
Hgb 11.9
Xrays: Left subcapital proximal femur fracture
Impression: JOSE ALBERTO
Plan: I had a lengthy bedside discussion with both the patient and her . They are in full understanding of the nature of her left hip fracture and our proposed treatment recommendations. I outlined surgical and nonsurgical options as well
as the RBAs of each approach. patient does use a walker at baseline. patient's very helpful at home with ADLs. after discussing and acccepting all the proposed risks of surgery they have both agreed to proceed under the direction of
Addison, hopefully today, as OR availability permits. plan will be for a bipolar endoprosthesis of the left hip. We briefly discussed the postop and rehab course as well, and will appreciate CM assistance with disposition. Patient is currently
NPO. surgical and blood consents have been signed by the patient and left at the OR desk. Operative site will be the LEFT hip. T&S requested. ABX and irrigation products on-call. She has been cleared to proceed to the OR by attending
hospitalist, Dr. Valencia. Again, as OR and surgeon availability permits, we will look to proceed with a hemiarthroplasty of the LEFT hip either today or tomorrow. Will follow along for now
--- NOTE | 2024-08-22 13:20 | PTCARENOTE ---
Patient received from ED in stretcher, patient transferred to bed; Patient states pain in left hip is four out of ten at this time; Bilateral pedal pulses palpable, patient denies numbness and/or tingling at this time; Patient denies N/V; First set
of surgical CHG wipes completed; Static air overlay in place; SCDs applied; Call [place] within reach; Spouse at bedside; Bed in lowest position, wheels locked; Patient and spouse updated on plan of care; Assessment ongoing
[2024-08-22] MEDS: CYMBALTA DELAYED RELEASE PO (13:36)
[2024-08-22] MEDS: NSS 1000 IV (13:37)
[2024-08-22] MEDS: MORPHINE SULFATE 2 MG IV ×2 (13:46→20:23)
[2024-08-22] MEDS: ZANAFLEX PO (16:02)
[2024-08-22] MEDS: LIORESAL PO (16:02)
[2024-08-22] MEDS: TYLENOL PO (16:02)
[2024-08-22] MEDS: NEURONTIN PO (16:02)
--- NOTE | 2024-08-22 16:11 | CM ---
Reviewed the chart notes and spoke with the patient's spouse at the bedside. The patient was in the OR. The patient resides with her spouse in a two story home with two steps to enter. The patient remains mostly on the second floor. The patient
has a rolling walker, wheelchair, shower chair, and shower grab bars. The patient has been to [facility] and [facility] and is current with [facility]. The patient's pharmacy of choice is the [facility] [address] [place]. CM continues to be available to
patient/family and is monitoring medical plan for needs at discharge.
Plan: Discharge plans will most likely be SNF/rehab prior to transitioning back to home.
[2024-08-22] MEDS: ZOFRAN 4 MG IV (18:17)
[2024-08-22] MEDS: DILAUDID 0.25 MG IV ×2 (18:38→19:07)
[2024-08-22] MEDS: NORMOSOL-R/PLASMALYTE-A 1000 IV (19:18)
[2024-08-22] MEDS: FLOMAX 0.4 MG PO (20:43)
[2024-08-22] MEDS: ASPIRIN 325 MG PO (20:43)
[2024-08-22] MEDS: DECADRON 4 MG PO (20:44)
[2024-08-22] MEDS: BACTROBAN 2% OINTMENT 1 APPLIC NASAL (20:44)
[2024-08-22] MEDS: COLACE 100 MG PO (20:44)
[2024-08-22] MEDS: SENOKOT 17.2 MG PO (20:44)
[2024-08-22] MEDS: VALIUM 5 MG PO (20:44)
[2024-08-22] MEDS: REMERON 15 MG PO (22:09)
[2024-08-22] MEDS: ZANAFLEX 4 MG PO (22:10)
[2024-08-22] MEDS: NEURONTIN 300 MG PO (22:10)
[2024-08-22] MEDS: LIORESAL 20 MG PO (22:10)
[2024-08-22] MEDS: TYLENOL 1000 MG PO (23:59)
[2024-08-22] MEDS: ANCEF 5 IV (23:59)
[2024-08-23] MEDS: MORPHINE SULFATE 2 MG IV (02:03)
[2024-08-23] MEDS: NSS 1000 IV ×2 (02:03→15:20)
[2024-08-23 03:08] VITALS: BP 140/65
--- NOTE | 2024-08-23 03:16 | PTCARENOTE ---
20:30 pt c/o abd pain, Bladder scanned showed 408cc, PRN flomax administered b/p within parameters. 21:45 pt incont of lafge amounts of urine soaked pads, PVR 15cc, pt expressed her abd felt much better.
[2024-08-23] MEDS: ROXICODONE 10 MG PO ×3 (04:42→17:14)
--- NOTE | 2024-08-23 05:00 | PTCARENOTE ---
19:30 pt rec'd from PACU, aaox3. Left hip dressing assessed with PACU nurse noted scant amount of drainage. pt denied pain, at the bedside, plan of care reviewed.
--- NOTE | 2024-08-23 07:04 | W.PN.ORTHO ---
Today's Communication / Plan
-
POD#1 left hip hemiarthroplasty under the direction of Dr. Jaime
--Weight bear as tolerated to left leg. Ambulate with assistive device
--PT/OT
--Hip precautions
--Continue with pain control as needed
--Aspirin 325mg daily for DVT prophylaxis x4 weeks postop
--Surgical dressing to remain in place for 7-10 days
--Yelitza to be removed at two weeks postop
--Case management consult for discharge planning
--Will continue to follow along
Assessment
.
Distal Motor Intact: Yes
Dressing:
Clean, dry and intact.
Plan
.
Surgery / Date: Left hip daniel 08/22/24 (Addison)
DVT Prophylaxis: Aspirin
Activity:
Out of bed.
PT/OT
Subjective
.
.:
Patient resting comfortably in bed this morning. She reports that she does have pain to the left leg.
Vital Signs and Labs
.
Vital Signs and Labs:
Lab Results
08/22/24 08:58
08/22/24 08:58
Temp Pulse Resp BP Pulse Ox
98.2 F 76 18 140/65 97
08/23/24 03:08 08/23/24 03:08 08/23/24 03:08 08/23/24 03:08 08/23/24 03:08
Non-invasive Hgb result: 11.8
Physical Exam
-
Directed exam of left hip reveals surgical dressing in place with scant strikethrough. Mild expected edema to thigh. Thigh is soft and compressible. Mild tenderness to palpation of the lateral hip. Able to plantarflex and dorsiflex the ankle. Calf
soft and nontender. NVI distally
[2024-08-23 07:34] VITALS: BP 134/71
[2024-08-23 08:02] LABS: Hematocrit 29.8 % (37.0-47.0); Mean Corp Hgb Conc. 33.6 g/dL (33.0-37.0); Mean Corpuscular Hgb 28.3 pg (27.0-31.0); Mean Corpuscular Volume 84.4 fL (81.0-99.0); Mean Platelet Volume 10.1 fL (7.4-10.4); Platelet Count 319 10^3/uL (130-400); Red Blood Cell Count 3.53 10^6/uL (4.20-5.40); Red Cell Dist. Width 12.8 % (11.5-14.5); White Blood Cell Count 13.2 10^3/uL (4.8-10.8)
--- NOTE | 2024-08-23 08:04 | W.PN.HOSP.TC ---
Addendum entered and electronically signed by Pipo Valencia MD 08/23/24 12:54:
I personally performed a history and physical exam of the patient and discussed management with the resident. I reviewed the resident's note and agree with the documented findings and plan of care HPI/CC except for changes in my documentation
Looks comfortable
Cardiovascular system S1-S2 appreciated
Chest clear to auscultation
Abdomen slightly distended but nontender bowel sounds present
Left hip status post surgery. Aquacel with minimal shadowing but otherwise unremarkable
Edema of the left thigh noted
# Left hip fracture
Status post left hip hemiarthroplasty by Dr. Jaime 08/22/2024
Hip precautions
PT OT
Aspirin 325 for DVT prophylaxis
Be requested Dr. Bill to kindly see to see if she is a candidate for [facility]
She is afraid of leg spasm with physical therapy
We discussed about taking pain medicines as she needs them and also to continue with muscle relaxants
# Multiple sclerosis originally diagnosed in 1998 as relapsing intermittent type.
Follows up with Dr. Mace
Not on any treatment
Continue baclofen, Zanaflex, Valium, Gabapentin for symptomatic treatment
# History of episode of seizure February 2024-is not on any medicines
Even though she was started on Keppra at the end of the hospitalization it was discontinued after EEG failed to demonstrate any epilepsy and also she was treated for UTI and it was found to be metabolic in nature.
No further episodes
# Depression-continue Remeron and duloxetine
# GERD-continue PPI
# DVT prophylaxis-SCDs now and per orthopedics after surgery likely aspirin
# Full code
Discussed with at bedside
D/W RN
Original Note:
Today's Communication/Plan
-
.
Assessment / Plan
Assessment / Plan
Assessment
Left hip fracture s/p left hip hemiarthroplasty 08/22
Multiple sclerosis
History of episodic seizures
Depression
GERD
Plan
#Left hip fracture s/p left hip hemiarthroplasty 08/22
Continue pain control as needed
PT/OT
Aspirin 325mg daily for DVT prophylaxis x4 weeks postop
Physiatry consult to assess for Rehab placement.
#Multiple sclerosis
Originally diagnosed in 1998
Follows up with Dr. Mace
Not on any treatment
Continue baclofen, Zanaflex, Valium, gabapentin for symptomatic treatment
#History of episode of seizures February 2024
Not on any medications
No further episodes
#Depression
Continue Remeron and duloxetine
#GERD
Continue PPI
DVT prophylaxis
Aspirin 325 mg
CODE STATUS full code
Anticipated Discharge: 24 - 48 hours
Subjective/Interval History
-
Saw patient at bedside. Patient reports left leg pain. Reports pain medication controlling symptoms. Denies chest pain, denies shortness of breath
Objective Data
-
Labs:
Laboratory Results
08/23/24
07:49
WBC 13.2 H
Hgb 10.0 L
Hct 29.8 L
Plt Count 319
Vital Signs:
Vital Signs
Temp Pulse Resp BP Pulse Ox
98 F 84 17 134/71 96
08/23/24 07:34 08/23/24 07:34 08/23/24 07:34 08/23/24 07:34 08/23/24 07:34
I&O
08/22/24 08/23/24 08/24/24
06:59 06:59 06:59
Intake Total 370 / 370
Output Total 1390 / 1390
Balance -1020 / -1020
Review of Systems
-
All other systems: Reviewed and negative
Physical Exam
-
General: Well Developed and Comfortable
Respiratory: Clear to Auscultation
Cardiac: Regular Rhythm and S1/S2
GI: Soft, Nontender and Nondistended
Musculoskeletal: Other (Mild tenderness to palpation of the lateral hip.)
Skin: Other (surgical dressing in place, )
Neuro: Awake, Alert, Oriented and AO x 3
[2024-08-23] MEDS: VALIUM 5 MG PO ×2 (08:45→20:01)
[2024-08-23] MEDS: NEURONTIN 300 MG PO ×3 (08:46→21:01)
[2024-08-23] MEDS: ASPIRIN 325 MG PO (08:47)
[2024-08-23] MEDS: CELEBREX 200 MG PO (08:47)
[2024-08-23] MEDS: ANCEF 5 IV (08:48)
[2024-08-23] MEDS: ZANAFLEX 4 MG PO ×3 (08:50→21:01)
[2024-08-23] MEDS: DECADRON 4 MG PO ×2 (08:50→20:01)
[2024-08-23] MEDS: LIORESAL 20 MG PO ×3 (08:50→21:02)
[2024-08-23] MEDS: TYLENOL 1000 MG PO ×3 (08:50→23:04)
[2024-08-23] MEDS: PROTONIX 20 MG PO (08:50)
[2024-08-23] MEDS: SENOKOT 17.2 MG PO ×2 (08:50→20:01)
[2024-08-23] MEDS: VITAMIN B-12 1000 MCG PO (08:51)
[2024-08-23] MEDS: VITAMIN D3 (cholecalciferol) 50 MCG PO (08:51)
[2024-08-23] MEDS: COLACE 100 MG PO ×2 (08:51→20:01)
[2024-08-23] MEDS: MAG-TAB SR 84 MG PO (08:51)
[2024-08-23] MEDS: CYMBALTA DELAYED RELEASE 60 MG PO (08:51)
[2024-08-23] MEDS: BACTROBAN 2% OINTMENT 1 APPLIC NASAL ×2 (08:59→20:56)
[2024-08-23] MEDS: ROXICODONE 5 MG PO (09:07)
[2024-08-23] MEDS: MILK OF MAGNESIA 30 ML PO (10:41)
[2024-08-23 10:46] LABS: Iron 48 ug/dl (37-170)
[2024-08-23 10:55] LABS: Percent Saturation 16 % (20-50); Total Iron Binding Capacity 298 ug/dl (265-497)
[2024-08-23 11:15] VITALS: BP 106/58
--- NOTE | 2024-08-23 11:15 | CM ---
Patient seen at bedside.
CM consult completed.
Await PT/OT evals
Current /[facility], if SNF she would like [facility].
PLAN: Await PT/OT evals.
[2024-08-23 12:18] LABS: Vitamin B12 998 pg/ml (239-931)
[2024-08-23 14:32] LABS: Ferritin 39.2 ng/ml (11.1-264.0)
[2024-08-23 15:36] VITALS: BP 134/59
[2024-08-23] MEDS: REMERON 15 MG PO (21:01)
[2024-08-23 23:43] VITALS: BP 114/65
[2024-08-24 06:37] LABS: Hematocrit 25.9 % (37.0-47.0); Hemoglobin 8.9 g/dL (12.0-16.0); Mean Corp Hgb Conc. 34.4 g/dL (33.0-37.0); Mean Corpuscular Hgb 29.5 pg (27.0-31.0); Mean Corpuscular Volume 85.8 fL (81.0-99.0); Mean Platelet Volume 10.4 fL (7.4-10.4); Platelet Count 318 10^3/uL (130-400); Red Blood Cell Count 3.02 10^6/uL (4.20-5.40); Red Cell Dist. Width 13.2 % (11.5-14.5); White Blood Cell Count 11.3 10^3/uL (4.8-10.8)
[2024-08-24 07:04] VITALS: BP 130/75
[2024-08-24 07:11] LABS: Blood Urea Nitrogen 23 mg/dl (7-17); Calcium 9.3 mg/dl (8.4-10.2); Carbon Dioxide 25 mmol/L (22-30); Chloride 109 mmol/L (98-107); Estimated Creatinine Clearance 84 ml/min; Glucose 116 mg/dl (70-99); Potassium 4.6 mmol/L (3.5-5.1); Sodium 145 mmol/L (135-145); eGFR > 60.00
[2024-08-24] MEDS: ROXICODONE 10 MG PO ×3 (08:32→16:35)
[2024-08-24] MEDS: SENOKOT PO (08:34)
[2024-08-24] MEDS: CYMBALTA DELAYED RELEASE 60 MG PO (08:35)
[2024-08-24] MEDS: VALIUM 5 MG PO ×2 (08:36→20:24)
[2024-08-24] MEDS: CELEBREX 200 MG PO (08:36)
[2024-08-24] MEDS: TYLENOL 1000 MG PO ×3 (08:36→22:59)
[2024-08-24] MEDS: MAG-TAB SR 84 MG PO (08:36)
[2024-08-24] MEDS: ASPIRIN 325 MG PO (08:36)
[2024-08-24] MEDS: FEOSOL 325 MG PO (08:36)
[2024-08-24] MEDS: PROTONIX 20 MG PO (08:36)
[2024-08-24] MEDS: NEURONTIN 300 MG PO ×3 (08:36→21:09)
[2024-08-24] MEDS: ZANAFLEX 4 MG PO ×3 (08:36→21:09)
[2024-08-24] MEDS: COLACE PO ×2 (08:37→20:24)
[2024-08-24] MEDS: VITAMIN B-12 1000 MCG PO (08:37)
[2024-08-24] MEDS: VITAMIN D3 (cholecalciferol) 50 MCG PO (08:37)
[2024-08-24] MEDS: LIORESAL 20 MG PO ×3 (08:37→21:09)
[2024-08-24] MEDS: DECADRON 4 MG PO ×2 (08:37→20:24)
--- NOTE | 2024-08-24 10:22 | W.PN.UPDATE ---
Update Note
Progress Note Update
Ms. Zacarias is PO2 following her left hip hemiarthroplasty performed by Dr. Jaime. She is resting comfortably in bed this morning. She reports aching pain about the hip, but states this is well controlled.
Directed exam of the left hip reveals surgical dressing with slight strikethrough of blood, otherwise CDI. Expected post-operative edema about the hip. Thigh soft and compressible. Calf soft and nontender. Neurovascularly intact distally.
Hgb 8.9 this AM.
POD#2 left hip hemiarthroplasty under the direction of Dr. Jaime
--Weight bear as tolerated to left leg. Ambulate with assistive device. PT/OT
--Hip precautions.
--Hgb 8.9 this AM. Continue to monitor.
--Continue with pain control as needed.
--Aspirin 325mg daily for DVT prophylaxis x4 weeks postop.
--Surgical dressing to remain in place for 7-10 days. Yelitza to be removed at two weeks postop.
--Case management consult for discharge planning
--Patient is stable post-operatively from an orthopedic standpoint. Orthopedics will sign off for now. Please reach out with any additional questions or concerns.
--- NOTE | 2024-08-24 10:23 | W.PN.HOSP.TC ---
Addendum entered and electronically signed by Pipo Valencia MD 08/24/24 13:16:
I personally performed a history and physical exam of the patient and discussed management with the resident. I reviewed the resident's note and agree with the documented findings and plan of care HPI/CC.
At bedside
She did physical therapy yesterday new complaints today. Had a bowel movement also.
Has some dysphagia
She is progressing with physical therapy and had bowel movements.
Hemoglobin is low we will repeat this afternoon.
Physiatry was consulted for acute rehab placement which I encouraged her to do if she is a candidate. Will wait for physiatry to evaluate her.
Speech evaluation noted. Recommending GI consultation request placed.
Discharge planning discussed with case management. If patient is not a candidate for acute rehab she wants to go to [facility] and they can offer a bed.
Original Note:
Today's Communication/Plan
-
.
Assessment / Plan
Assessment / Plan
Assessment
Anemia
Left hip fracture s/p left hip hemiarthroplasty 08/22
Multiple sclerosis
History of episodic seizures
Depression
GERD
Plan
#Left hip fracture s/p left hip hemiarthroplasty 08/22
Continue pain control as needed
Surgical dressing to remain in place for 7-10 days. Yelitza to be removed at two weeks postop.
Aspirin 325mg daily for DVT prophylaxis x4 weeks postop
Physiatry consult to assess for Rehab placement.
#Anemia
Hgb 8.9.
Will trend level
Repeat level this afternoon.
#Multiple sclerosis
Originally diagnosed in 1998
Follows up with Dr. Mace
Not on any treatment
Continue baclofen, Zanaflex, Valium, gabapentin for symptomatic treatment
#History of episode of seizures February 2024
Not on any medications
No further episodes
#Depression
Continue Remeron and duloxetine
#GERD
Continue PPI
DVT prophylaxis
Aspirin 325 mg
CODE STATUS full code
Anticipated Discharge: Today
Subjective/Interval History
-
No acute events overnight. Passes gas. Having BM. Denies SOB.
Objective Data
-
Labs:
Laboratory Results
08/24/24
05:57
WBC 11.3 H
Hgb 8.9 L
Hct 25.9 L
Plt Count 318
Sodium 145
Potassium 4.6
Chloride 109 H
Carbon Dioxide 25
BUN 23 H
Creatinine 0.6
Glucose 116 H
Calcium 9.3
Vital Signs:
Vital Signs
Temp Pulse Resp BP Pulse Ox
98.0 F 95 16 130/75 98
08/24/24 07:04 08/24/24 07:04 08/24/24 07:04 08/24/24 07:04 08/24/24 07:04
I&O
08/23/24 08/24/24 08/25/24
06:59 06:59 06:59
Intake Total 370 / 370 1500 / 1500
Output Total 1390 / 1390 1800 / 1800
Balance -1020 / -1020 -300 / -300
Review of Systems
-
All other systems: Reviewed and negative (except as documented)
Physical Exam
-
General: No Apparent Distress and Comfortable
Respiratory: Clear to Auscultation; Negative Wheezes or Rales
Cardiac: Regular Rhythm and S1/S2
GI: Soft, Nontender, Nondistended and Normal Bowel Sounds
Musculoskeletal: Other (post-operative edema, Aquacel with minimal shadowing)
Neuro: Awake, Alert, Oriented and AO x 3
--- NOTE | 2024-08-24 11:04 | CON.MD ---
Consultation - Medical
-
Referring Provider:�Dr. Pipo Valencia
Chief Complaint:�Left hip hemiarthroplasty after fracture
�
History of Present Illness:�49-year-old female with PMH (as below) presented to [facility] on 08/22/2024 after a 4-day history of left hip pain after a fall and found to have a left subcapital proximal femur fracture status post 08/22/2024
left hemiarthroplasty by Dr. Zi Jaime. She is weightbearing as tolerated with aspirin DVT prophylaxis for 4 weeks and surgical dressing to remain for 7 to 10 days followed by stable removal at 14 days. Otherwise doing well postoperatively.
Patient had recent stay in a skilled rehab facility. With her multiple sclerosis and activity tolerance with her spasticity she feels this is the best and most appropriate option for her. She is not going to be able to tolerate 3 hours of therapy
a day, she does know that she needs to go to rehab and not go home at this point.
She has had increased spasticity since having the hip fracture. She continues to take her baclofen 20 mg 3 times a day, tizanidine 4 mg 3 times daily and diazepam 5 mg twice a day. She has not tried increasing baclofen 4 times a day. She has also
not considered trying a baclofen pump. She is open to get through this time. With increase spasticity with fracture and trauma and hopefully she will go back to her baseline.
�
Past Medical History:�psoriasis, insomnia, dysphagia, overactive bladder, gait dysfunction, Anxiety, depression, multiple sclerosis
Procedure History:�Appendectomy
Family History:�Father with pancreatic cancer
�
Social History:�
Functional Level Premorbidly: Assisted at home, ambulating with rolling walker, has been helps with daily activities. Dependent for homemaking
Functional Level Currently:�Dependent for lower extremity self-care and bed mobility. Max assist for bed mobility. Max assist to dependent for transfers. Unable to ambulate.
�
Tobacco:�Former
Alcohol:�Denies�
Drug use:�Denies�
�
Lives with:�Spouse
24-hour assistance available:� present and able to assist as needed
Number of floors:�2
# steps to enter:�2-3
# steps to second floor: Full flight. carries her up steps.
Potential First floor set up:�Primarily stays on the second floor
Driving:�No
Occupation:�Disability
�
�
Allergies:�
Allergy/AdvReac Type Severity Reaction Status Date / Time
No Known Allergies Allergy Verified 03/24/24 20:34
�
Review of Systems:�
Constitutional: (x) abNormal _fatigue
Eye: (x) Normal _
Ear/Nose/Throat: (x) Normal _
Respiratory: (x) Normal _
Cardiovascular: (x) Normal _
Gastrointestinal: (x) Normal _
Genitourinary: (x) Normal _
Musculoskeletal: (x) abNormal _left hip pain
Integumentary: (x) Normal _
Neurologic: (x) abNormal _multiple sclerosis with significant spasticity issues.
Psychiatric: (x) Normal _
Endocrine: (x) Normal _
Hematologic/Lymphatic: (x) Normal _
Allergic/Immunologic: (x) Normal _
�
Medications:�
Active Current Visit Medication List
Category Date Time Status
Acetaminophen [Tylenol] Med 08/22/24 16:00 Active
1,000 mg PO Q8
Aspirin Med 08/22/24 18:00 Active
325 mg PO DAILY
Baclofen [Lioresal] Med 08/22/24 16:00 Active
20 mg PO TID
Bisacodyl [Dulcolax] Med 08/22/24 13:08 Active
10 mg RECTAL [id number] PRN
Celecoxib [Celebrex] Med 08/23/24 08:00 Active
200 mg PO DAILY
Cholecalciferol (Vitamin D3) [VITAMIN D3 ( Med 08/23/24 08:00 Active
cholecalciferol)]
50 mcg PO DAILY
Cyanocobalamin [Vitamin B-12] Med 08/23/24 08:00 Active
1,000 mcg PO DAILY
Dexamethasone [Decadron] Med 08/22/24 20:00 Active
4 mg PO BID
Diazepam [Valium] Med 08/22/24 20:00 Active
5 mg PO BID
Docusate Sodium [Colace] Med 08/22/24 20:00 Active
100 mg PO BID
Docusate W/Senna [Senokot-S] Med 08/22/24 13:08 Active
1 tablet PO BIDPRN PRN
Duloxetine Delayed Release [Cymbalta Delayed Release] Med 08/22/24 13:08 Active
60 mg PO DAILY
Ferrous Sulfate [Feosol] Med 08/24/24 08:00 Active
325 mg PO DAILY
Flush (0.9% Sodium Chloride) [Flush (Nss)] Med 08/22/24 13:00 Active
See Dose Instructions IV PER PROTOCOL
Gabapentin [Neurontin] Med 08/22/24 16:00 Active
300 mg PO TID
Mag Hydrox/Al Hydrox/Simeth [Maalox] Med 08/22/24 15:54 Active
30 ml PO Q4HPRN PRN
Magnesium Hydroxide [Milk of Magnesia] Med 08/22/24 13:08 Active
30 ml PO DAILYPRN PRN
Magnesium l-Lactate [Mag-Tab Sr] Med 08/23/24 08:00 Active
84 mg PO DAILY
Mirtazapine [Remeron] Med 08/22/24 22:00 Active
15 mg PO HS
Morphine Sulfate Med 08/22/24 13:08 Active
2 mg IV Q4HPRN PRN
Ondansetron Injectable [Zofran] Med 08/22/24 15:54 Active
4 mg IV Q6HPRN PRN
Oxycodone [Roxicodone] Med 08/22/24 15:54 Active
10 mg PO Q4HPRN PRN
Oxycodone [Roxicodone] Med 08/22/24 15:54 Active
2.5 mg PO Q4HPRN PRN
Oxycodone [Roxicodone] Med 08/22/24 16:06 Active
5 mg PO Q4HPRN PRN
Pantoprazole [Protonix] Med 08/23/24 08:00 Active
20 mg PO DAILY
Polyethylene Glycol Powder [Miralax] Med 08/23/24 08:00 Active
17 grams PO DAILY
Polyethylene Glycol Powder [Miralax] Med 08/22/24 13:08 Active
17 grams PO DAILYPRN PRN
Prochlorperazine [Compazine] Med 08/22/24 15:54 Active
5 mg PO Q6HPRN PRN
Sennosides [Senokot] Med 08/22/24 20:00 Active
17.2 mg PO BID
Tamsulosin [Flomax] Med 08/22/24 13:08 Active
0.4 mg PO DAILYPRN PRN
Tizanidine [Zanaflex] Med 08/22/24 16:00 Active
4 mg PO TID
�
Vitals:�
Temp Pulse Resp BP Pulse Ox
98.0 F 95 16 130/75 98
08/24/24 07:04 08/24/24 07:04 08/24/24 07:04 08/24/24 07:04 08/24/24 07:04
Height 5 ft 1 in
Actual Weight 54.068 kg
Body Mass Index (BMI) 22.5
�
Physical Exam:�
General Appearance/Observation: Well-developed, well-nourished female in no apparent distress.�
Pain/Comfort Assessment: Moderate left hip pain
Mood/Affect: Appropriate�
�
Integumentary/Operative Site:�Left hip Aquacel with scant drainage. No other lesions noted.
�
Eyes: Conjunctiva/Lids: normal���� Pupils: pupils equal round and reactive to light and Accommodation�
Ears/Nose/Throat: oral mucosa moist,� throat clear.������������ Lips/Teeth/Gums: normal�
Cardiovascular: Heart: regular, no murmur�
Pulses: dorsalis pedis 2+ bilaterally�
Respiratory: Respiratory Effort/Chest Expansion: normal������� Auscultation: Clear to auscultation bilaterally�
Gastrointestinal: abdomen not tender, no distension, normal abdominal bowel sounds
Genitourinary: No Starks�
Extremities:�Edema: Mild nonpitting leg edema. �Cyanosis: None�Trophic�changes: None
�
Neurology Exam:
Orientation: Alert, Oriented to self, Time, Place�
Memory: Intact for recent medical concerns.
Comprehension: Intact
Two step command: Intact
Cranial Nerves:
�� CNII:�Pupillary light reflex: Intact����Visual Field: Intact
�� CN III, IV, : Extraocular muscles: Intact�
�� CN V:�Facial Sensation�at�Forehead: Intact,�Maxilla: Intact,�Mandible: Intact
�� CN VII:�Facial movement: Symmetric
�� CN VIII:�Hearing: Normal
�� CN IX/X:�Speech & swallow: Normal,�Position of Uvula: Midline
�� CN XI:�Shoulder shrug: Symmetric
�� CN XII:�Tongue protrusion: Midline
Sensory:
�� Light touch: Intact in bilateral upper and lower extremities
�
Reflexes:
�� Biceps: 2+ bilaterally
�� Brachioradialis: 2+ bilaterally
�� Triceps: 2+ bilaterally
�� Patellar: 2+ bilaterally
�� Achilles: 2+ bilaterally
�� Babinski: Down going bilaterally
�� Clonus: None
�� Felix: Negative bilaterally�
Cerebellar: Dysmetria/Ataxia: None�
Musculoskeletal: Motor: (Manual muscle scale 0-5)�4/5 bilateral upper extremity strength and range allowed by tone. Able to bend her hip, knee, ankle but not to full range of motion and at a 3-4/5 strength in available range.
Tone: Increased in all extremities�limiting full range of motion at most joints particular the shoulder, hip, knee, ankle.
Range of Motion: Passively limited in most joints from tone
�
Lab Results
Laboratory Data
08/24/24 05:57
08/24/24 05:57
�
Diagnostic Results:�as per HPI�
�
Assessment
49-year-old F PMH (psoriasis, insomnia, dysphagia, overactive bladder, gait dysfunction, Anxiety, depression, multiple sclerosis) s/p 08/22/[address] Zi Jaime with baseline multiple sclerosis with increased spasticity
resulting in ADL and ambulatory dysfunction.
�
�
Plan�
PM&R�PT/OT to increase independence with ADLs, improve balance, coordination, endurance, strength, mobility, community reintegration, decreased burden of care on others and family education.�
�
S/P L hip hemiarthroplasty 08/22/2024 after mechanical fall with fracture: Monitor incision, pain control, may shower, dressing removal postop day 7-10, divya removed postop day 14.
��
MS: Continue medications.� Continue to monitor neurologic status.�
-Spasticity: Baclofen 20 mg 3 times daily. Tizanidine 4 mg 3 times daily. Valium 5 mg oral twice daily.
---Had an extensive discussion with her regarding medication use. Can increase baclofen to 20 mg 4 times a day and potentially even higher versus having numerous agents. The more agents she has the more risk of side effects that she has. If she
continues to have tone only through this acute phase of the fracture then she will probably continue to improve with her tone and p.o. to get back on her baseline baclofen dosing. If she continues to have persistent tone this limiting her range of
motion, causing hygiene, causing pain concerns, she may benefit from a baclofen pump evaluation. Reviewed that basic mechanism of baclofen pumps with potential risks and side effects. 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
least getting a trial to see if it would be in her best interest. She can go to any [facility] rehab office and asked to have an evaluation for a baclofen pump and they can help get her set up.
-Dysphagia: Regular diet, aspiration precautions.
�Neuropathic pain: Gabapentin 300 mg 3 times daily
Psoriasis: Dexamethasone 4 mg twice daily
Postoperative anemia: Expected after surgery 8.9 from 10 from 11.9 from 12.7. B12 and iron supplement. Continue to monitor.�
Mild leukocytosis: Improving, likely reactive postsurgical
FEN: Encourage hydration.
Psych: Psychology consult.� Duloxetine 60 mg daily, mirtazapine 15 mg at bedtime.
Skin: monitor for pressure sores/rashes/lesions.�
Pain: acetaminophen 1000 mg every 8 hours, celecoxib 200 mg daily, or oxycodone as needed.� Duloxetine 60 mg
Bowel: Colace, MiraLAX, and Senna, PRN bisacodyl.�
Overactive bladder: Time void, PVRs, PRN straight cath.� Not currently on medication.
GI Prophylaxis: Pantoprazole�
DVT Prophylaxis: Mechanical and full dose aspirin.�
Pulmonary: Incentive spirometry�
Safety: Continue to reinforce assistance with all transfers.�
Code Status:� Full code
Dispo�(date/plan/equipment needs): Home with family care.� Social history reviewed.�
Functional and Medical Goals:�Modified Independent with ADL�s, ambulation, transfers�
Discharge Destination:�Acute inpatient rehabilitation is suggested but patient prefers snf facility
A total of 60 minutes were spent with the patient preparing for the evaluation, obtaining history, performing examination and evaluation, counseling, data review, case management, care coordination, computerized mill mill recorder, and EMR documentation.
Summary of recommendations:
-�Discharge Destination:�half-way facility per patient preference
MS: Continue medications.� Continue to monitor neurologic status.�
-Spasticity: Baclofen 20 mg 3 times daily. Tizanidine 4 mg 3 times daily. Valium 5 mg oral twice daily. Could increase baclofen to 20 mg 4 times a day if needed. Would suggest consideration for baclofen pump evaluation as discussed with patient
to help with improved quality of life. She can go to any [facility] rehab office and asked to have an evaluation for a baclofen pump and they can help get her set up.
-Dysphagia: Regular diet, aspiration precautions.
�Neuropathic pain: Gabapentin 300 mg 3 times daily
Psoriasis: Dexamethasone 4 mg twice daily
Postoperative anemia: Expected after surgery 8.9 from 10 from 11.9 from 12.7. B12 and iron supplement. Continue to monitor.�
Mild leukocytosis: Improving, likely reactive postsurgical
Thank you for allowing me to care for your patient. Please contact me with any questions or concerns.
--- NOTE | 2024-08-24 12:57 | CM ---
Met with patient and [employer]
Discussed PT recommendation of ACUTE rehab.
Options discussed on acute rehab - [facility] referral entered.
PM&R order in [facility].
Patient and still leaning towards [facility]. where she is familiar.
They are awaiting physiatry.
Spoke to Shaunna at [facility] - no bed available today.
repeat labs this afternoon Hgb
PLAN: Discharge to [facility] vs. [facility]
--- NOTE | 2024-08-24 13:26 | PTOTSP ---
SPEECH THERAPY SWALLOW EVALUATION:
Patient exhibits grossly functional oropharyngeal swallow at this time; Suspect primary esophageal dysphagia. Patient remains at risk for post-prandial aspiration and related complications given suspected esophageal dysphagia and MS. Recommend GI
consult. Recommend continue Regular texture diet/thin liquids, with patient to select soft/moist items and avoid hard/dry textures. Medications whole with liquid as best tolerated. Aspiration and Reflux precautions: Upright positioning; Remain
upright 30 minutes after eating/drinking; Intersperse liquids during meals; Slow rate of intake; Small, frequent meals. Monitor for signs of aspiration and d/c oral diet if any decline in mental or respiratory status. Speech therapy to follow
briefly at the acute care level to ensure diet tolerance and provide education regarding aspiration/reflux precautions. Patient agreeable to plan of care, though appeared resistant to GI consult at this time. Discussed recommendations with
Annie.
RECOMMEND:
1) GI consult due to suspected primary esophageal dysphagia
2) Regular texture diet/thin liquids, with patient to select soft/moist items and avoid hard/dry textures
3) Medications whole with liquid as best tolerated
4) Aspiration and Reflux precautions: Upright positioning; Remain upright 30 minutes after eating/drinking; Intersperse liquids during meals; Slow rate of intake; Small, frequent meals. Monitor for signs of aspiration and d/c oral diet if any
decline in mental or respiratory status
5) Speech therapy to follow briefly
[2024-08-24 13:42] LABS: Hemoglobin 9.6 g/dL (12.0-16.0)
--- NOTE | 2024-08-24 14:12 | CON.GI ---
Addendum entered and electronically signed by Mc Cantor DO 08/24/24 16:23:
I saw and examined the patient. The FISH HATCHERY LABORER's note was reviewed and I agree with the note.
Comment: Ms Zacarias is a 49 y.o female with past medical history of MS (not on any medications due to side effects), chronic esophageal dysphagia, seizures, and ambulatory dysfunction who presented to the ED after a mechanical fall. Incidentally
noted to have dysphagia for which GI has been consulted. Patient denies any worsening dysphagia and states if anything her symptoms have gotten better as she's learned to 'deal with it.' Denies any prior EGD in the past. Prior esophagram back in
2019 was revealing for a short segment with smooth tapering of the distal esophagus towards the gastroesophageal junction suspicious for achalasia. She states she has always had issues with solid food where she needs to drink several sips of liquids
to get food down along with pressing on her chest. States her symptoms have been present since her diagnosis of MS in 1998. She is not concerned about this and further thinks this has gotten better. Otherwise, she denies any nausea/vomiting,
reflux/heartburn, globus sensation, regurgitation or unintentional weight loss. She does not wish to pursue any further w/u regarding this. Etiology suspicious for achalasia (given her history of MS as this has been associated with achalasia along
with SELINA) versus pseudoachalasia versus other unspecified esophageal motility disorder. Much less likely stricture given nature of symptoms. Did discuss pursuing an EGD given her prior abnormal esophagram but patient declined. Certainly reasonable
to pursue outpatient evaluation along with consideration of manometry given the chronicity of symptoms.
Recommendations:
- Regular diet as tolerated
- Agree with cutting back on bowel regimen as detailed below
- No indication in repeating barium esophagram given her last barium esophagram back in 09/2020
- Will defer inpatient EGD given discussions with patient, opted for outpatient evaluation with GI which is reasonable
- Rest of care as outlined below
GI team will sign-off. Please recontact with any questions or concerns.
Thank you for allowing me to participate in the care of this patient.
Addendum entered and electronically signed by ANASTASIA Tucker 08/24/24 15:54:
reviewed with Dr. Cantor also noted prior esophagram as noted in 2019
09/2020 RF Esophagus-Single Contrast
1. Short segment smooth tapering of the distal esophagus towards the gastroesophageal junction is concerning for achalasia.
2. Delayed passage of the barium tablet from the distal esophagus through the gastroesophageal junction.
Original Note:
Consultation
-
Date/Time Consultation Requested: 08/24/24 1315
Date/Time Consultation Performed: 08/24/24 1415
Requesting Provider: Pipo Rojas MD
Performing Provider: ANASTASIA Cerda
Reason for Consultation: esophageal dysphagia
Medical History
Chief Complaint / HPI
Chief Complaint: dsyphagia
History of Present Illness:
Pt is a 49yo with hx MS since 1998 (not on medication due to side effects), chronic dysphagia, seizures, anxiety/depression, overactive bladder, gait dysfunction with admission with fall. She has chronic dysphagia and was evaluated by speech
therapy with concern for esophageal dysphagia and asked to see for GI evaluation.
In reviewing with patient she has had longstanding dysphagia. She currently takes soft food with smoothies and chews food well. She will have feeling of food sticking at time but denies any wt loss, PNA, vomiting, or hematemesis. She also
admits to constipation with occasional laxative use. and diarrhea yesterday. She denies odynophagia, GERD, nausea, vomiting, abdominal pain or rectal bleeding. ? hx colonoscopy in past and denies hx EGD.
Past Medical History
Past Medical History: Seizures, Psychiatric (anxiety/depression) and Other (MS, dysphagia, psoriasis, insomnia, overactive bladder, gait dysfunction, vitamin D, cachexia )
Past Surgical History: Appendectomy (2021 for perforated appe with abscess ), , Orthopedic (hip fx with repair 08/23 with left hip cemented with bipolar endoprosthesis ) and Other (otoplasty)
Social History
Tobacco: Former Smoker
Alcohol: None
Drug: Marijuana
Personal:
Living: With Family
Employment: Not Employed
Family History
Family History: Other (no family hx colon CA or polyps)
Allergies / Home Medications
Allergy/AdvReac Type Severity Reaction Status Date / Time
No Known Allergies Allergy Verified 03/24/24 20:34
�Medication �Instructions �Recorded
cholecalciferol (vitamin D3) 50 50 mcg PO DAILY Supplement 03/24/24
mcg (2,000 unit) tablet (Vitamin
D3)
cyanocobalamin (vitamin B-12) 1,000 mcg PO DAILY Supplement 03/24/24
1,000 mcg tablet (Vitamin B-12)
magnesium 250 mg tablet 250 mg PO DAILY Supplement 03/24/24
diazepam 5 mg tablet (Valium) 5 mg PO BID #10 tabs 05/13/24
gabapentin 300 mg capsule 300 mg PO TID #90 caps 05/13/24
baclofen 20 mg tablet 20 mg PO TID 08/22/24
duloxetine 60 mg capsule,delayed 60 mg PO DAILY 08/22/24
release
mirtazapine 15 mg tablet 15 mg PO HS 08/22/24
oxycodone-acetaminophen 10 mg-325 1 tab PO Q6HPRN PRN severe pain 08/22/24
mg tablet
pantoprazole 20 mg tablet,delayed 20 mg PO DAILY 08/22/24
release
therapeutic multivitamin 1 tab PO DAILY 08/22/24
tizanidine 4 mg capsule 4 mg PO TID 08/22/24
Review of Systems
-
History Source: Patient and Family
Constitutional: Reports Weight Gain
EENT: Reports Other (chronic dysphagia with mild slow eating )
Respiratory: Reports No Symptoms
Cardiac: Reports No Symptoms
Abdomen/GI: Reports Constipated
: Reports No Symptoms
Musculoskeletal: Reports Other (spasms )
Skin: Reports No Symptoms
Neurological: Reports Weakness
Endocrine: Reports No Symptoms
Hematologic/Lymphatic: Reports No Symptoms
Vital Signs
Temp Pulse Resp BP Pulse Ox
98.0 F 95 16 130/75 98
08/24/24 07:04 08/24/24 07:04 08/24/24 07:04 08/24/24 07:04 08/24/24 07:04
Physical Exam
Exam
General: Well Developed, Well Nourished and No Apparent Distress
HEENT: Normocephalic and Anicteric
Respiratory: Clear
Cardiac: Regular Rhythm
GI: Soft, Non Tender and Non Distended
Musculoskeletal: No Clubbing and No Cyanosis
Skin: Warm and Dry
Neuro: Awake, Alert and AO x 3
Psych: Calm
Results
WBC 11.3 10^3/uL (4.8-10.8) H 08/24/24 05:57
Hgb 9.6 g/dL (12.0-16.0) L 08/24/24 13:30
Hct 29.0 % (37.0-47.0) L 08/24/24 13:30
MCV 85.8 fL (81.0-99.0) 08/24/24 05:57
Plt Count 318 10^3/uL (130-400) 08/24/24 05:57
Absolute Neuts (auto) 4.8 10^3/uL (1.4-6.5) 08/22/24 08:58
Sodium 145 mmol/L (135-145) 08/24/24 05:57
Potassium 4.6 mmol/L (3.5-5.1) 08/24/24 05:57
Chloride 109 mmol/L (98-107) H 08/24/24 05:57
Carbon Dioxide 25 mmol/L (22-30) 08/24/24 05:57
BUN 23 mg/dl (7-17) H 08/24/24 05:57
Creatinine 0.6 mg/dL (0.6-1.0) 08/24/24 05:57
Calcium 9.3 mg/dl (8.4-10.2) 08/24/24 05:57
Diagnostic Image Results:
Prior GI Procedures:
EGD: none
Colonoscopy: ? in past
Assessment / Plan
-
Pt is a 49yo with hx MS(not on medication due to side effects), chronic dysphagia, seizures, anxiety/depression, overactive bladder, gait dysfunction with admission with fall. She has chronic dysphagia and was evaluated by speech therapy with
concern for esophageal dysphagia and asked to see for GI evaluation.
-chronic dysphagia - likely esophageal
-constipation
-hx MS
-s/p fall with hip fracture repair
other med problems:
-hx Seizure disorder
-anxiety/depression
-overactive bladder
-gait dysfunction
PLAN:
etiology of dysphagia related underlying MS vs other
per patient chronic issue and tolerating modified diet with smoothies and food well chewed and chopped without very slow eating or prior PNA
discussed EGD. esophagram but pt declines further testing
discussed if symptoms progress to return to GI for eval
also discussed constipation and bout of diarrhea last Pm
Pt currently on colace BID, senna BID and miralax daily along with daily magnesium
will decreased regiment slowly with diarrhea and change senna to daily at HS if continued diarrhea stop colace next
pt ? hx colonoscopy in past discussed eventual colonoscopy for screening vs cologuard when improved from hip fx
updated spouse
all questions answered
-
-
Thank you for consultation and allowing me to participate in the patient's care. Please call the lesson instructor GI physician during the after hours with any questions or concerns.
[2024-08-24 15:27] VITALS: BP 139/74; PULSE 103; O2SAT 97
[2024-08-24 16:06] VITALS: BP 138/71
[2024-08-24] MEDS: REMERON 15 MG PO (21:09)
[2024-08-24 23:10] VITALS: BP 97/54
[2024-08-25 06:35] LABS: Hematocrit 27.2 % (37.0-47.0); Hemoglobin 9.2 g/dL (12.0-16.0); Mean Corp Hgb Conc. 33.8 g/dL (33.0-37.0); Mean Corpuscular Hgb 29.3 pg (27.0-31.0); Mean Corpuscular Volume 86.6 fL (81.0-99.0); Mean Platelet Volume 10.4 fL (7.4-10.4); Platelet Count 310 10^3/uL (130-400); Red Blood Cell Count 3.14 10^6/uL (4.20-5.40); Red Cell Dist. Width 13.4 % (11.5-14.5); White Blood Cell Count 9.6 10^3/uL (4.8-10.8)
[2024-08-25 07:37] VITALS: BP 127/73
--- NOTE | 2024-08-25 07:49 | W.PN.HOSP.TC ---
Addendum entered and electronically signed by Pipo Valencia MD 08/25/24 15:28:
Spoke with again twice after my initial visit. All questions answered. They seem to be ready to go to rehab today.
Total discharge cordination time more than 30 minutes.
Addendum entered and electronically signed by Pipo Valencia MD 08/25/24 13:46:
I personally performed a history and physical exam of the patient and discussed management with the resident. I reviewed the resident's note and agree with the documented findings and plan of care HPI/CC.
Seen earlier. Late documentation .
Patient and were anxious about rehab . They like [facility]. I asked them to make a decision.
Patient awake and alert and oriented
Anxious
Cardiovascular system S1-S2 appreciated
Chest clear to auscultation
No pedal edema
Left hip with edema and mild shadowing noted in the dressing
Hemoglobin stable since yesterday.
Continue iron replacement
Continue medicines for muscle spasm and pain medicines so that she can comfortably do physical therapy
I discussed with both of them that it is not at her best interest to have a diaper which she wears at home. She is at risk for UTIs with a diaper or pure wick which she prefers here. I discussed that she should get on the commode with help.
Patient [facility] and [facility]. Physiatry evaluation appreciated Case discussed with patient's at bedside
Discussed with case management
Discussed with nursing
Original Note:
Today's Communication/Plan
-
D/C to shelter facility
Assessment / Plan
Assessment / Plan
Assessment
Anemia
Left hip fracture s/p left hip hemiarthroplasty 08/22
Multiple sclerosis
History of episodic seizures
Depression
GERD
Plan
#Left hip fracture s/p left hip hemiarthroplasty 08/22
Continue pain control as needed
Surgical dressing to remain in place for 7-10 days. [place] to be removed at two weeks postop.
Aspirin 325mg daily for DVT prophylaxis x4 weeks postop
Physiatry input appreciated
Acute inpatient rehabilitation was suggested, but patient prefers shelter facility
#Anemia
8.9>>9.6>>9.2
Trending up, will continue to monitor
#Multiple sclerosis
Originally diagnosed in 1998
Follows up with Dr. Mace
Not on any treatment
Continue baclofen, Zanaflex, Valium, gabapentin for symptomatic treatment
#History of episode of seizures February 2024
Not on any medications
No further episodes
#Depression
Continue Remeron and duloxetine
#GERD
Continue PPI
DVT prophylaxis
Aspirin 325 mg
CODE STATUS full code
Anticipated Discharge: Within 24 hours
Subjective/Interval History
-
Date of Service: August 25, 2024
Objective Data
-
Labs:
Laboratory Results
08/25/24
05:40
WBC 9.6
Hgb 9.2 L
Hct 27.2 L
Plt Count 310
Vital Signs:
Vital Signs
Temp Pulse Resp BP Pulse Ox
98.6 F 93 16 127/73 96
08/25/24 07:37 08/25/24 07:37 08/25/24 07:37 08/25/24 07:37 08/25/24 07:37
I&O
08/24/24 08/25/24 08/26/24
06:59 06:59 06:59
Intake Total 1500 / 1500 1440 / 1440
Output Total 1800 / 1800 2230 / 2230
Balance -300 / -300 -790 / -790
Review of Systems
-
All other systems: Reviewed and negative (Except as documented)
Physical Exam
-
General: No Apparent Distress
Respiratory: Clear to Auscultation
Cardiac: Regular Rhythm and S1/S2
GI: Soft, Nontender, Nondistended and Normal Bowel Sounds
Musculoskeletal: Other (post-operative edema, Aquacel with minimal shadowing)
Neuro: Awake, Alert, Oriented and AO x 3
Psych: Calm
[2024-08-25] MEDS: ROXICODONE 10 MG PO ×3 (08:16→17:52)
[2024-08-25] MEDS: PROTONIX 20 MG PO (08:18)
[2024-08-25] MEDS: TYLENOL 1000 MG PO ×2 (08:19→16:09)
[2024-08-25] MEDS: CYMBALTA DELAYED RELEASE 60 MG PO (08:19)
[2024-08-25] MEDS: COLACE 100 MG PO (08:19)
[2024-08-25] MEDS: ASPIRIN 325 MG PO (08:19)
[2024-08-25] MEDS: VITAMIN D3 (cholecalciferol) 50 MCG PO (08:19)
[2024-08-25] MEDS: FEOSOL 325 MG PO (08:19)
[2024-08-25] MEDS: ZANAFLEX 4 MG PO ×2 (08:19→16:11)
[2024-08-25] MEDS: NEURONTIN 300 MG PO ×2 (08:21→16:10)
[2024-08-25] MEDS: DECADRON 4 MG PO (08:21)
[2024-08-25] MEDS: VALIUM 5 MG PO (08:22)
[2024-08-25] MEDS: LIORESAL 20 MG PO ×2 (08:22→16:11)
[2024-08-25] MEDS: MAG-TAB SR 84 MG PO (08:22)
[2024-08-25] MEDS: VITAMIN B-12 1000 MCG PO (08:22)
[2024-08-25] MEDS: CELEBREX 200 MG PO (08:22)
--- NOTE | 2024-08-25 08:54 | CM ---
Patient preference SNF
Would like [facility]-bed available today per Marlen liaison.
Will set up transportation via ambulance
PLAN: Discharge to [facility] per patient choice
report #: [phone]
Fax #: [phone]
--- NOTE | 2024-08-25 15:14 | PN.CDI ---
CDI
- -
CDI:
Physician Documentation Request
Admit Date: 08/22/24 11:33
Dear Doctor Sylvia,
Patient admitted with left hip fracture s/p left hip hemiarthroplasty.
ED note, 'Patient has history of multiple sclerosis from which she has limited mobility. Patient actually was hospitalized here at [place] in April and post admission had a long stay in rehab. After rehab she was able to ambulate fairly well for
her with a walker. Unfortunately 4 days ago while ambulating she had a fall.'
08/22 Hip X-Ray, 'The bones appear diffusely demineralized.'
Home medication's include Cholecalciferol.
Please clarify in your note the likely etiology/etiologies of left hip fracture:
Multifactorial due to low level fall and osteoporosis due to age/ disuse
Low level fall only
Other
Use of terms such as suspected, likely, concern for, or probable (associated with a specific diagnosis that is being evaluated, monitored, or treated as if it exists) are acceptable and can be coded in the inpatient setting, when documented at the
time of discharge.
Thank you,
Tess DOAN,RN,CCDS
CDI Specialist
Available via [employer] text
Please use your independent medical judgment in providing your response.
[2024-08-25 15:25] VITALS: BP 127/64
--- NOTE | 2024-08-25 15:26 | W.DS.TRANS ---
DC Summary - City Dispatcher
-
Discharge Instructions:
Discharge Diagnosis/Procedures Hip fracture with left hip hemiarthroplasty on 9
Anemia
Multiple sclerosis
Depression
GERD
Diet As tolerated
Activity As tolerated,With assistance
Driving Restrictions No driving
Other Services PT,OT
Instructions:
Stand-Alone Forms:
Changes to Home Medications: Yes
Discharge Medications:
DC Medications w/original date entered in [employer]
cholecalciferol (vitamin D3) 50 mcg (2,000 unit) tablet (Vitamin D3) 50 mcg PO DAILY Supplement 03/24/24
cyanocobalamin (vitamin B-12) 1,000 mcg tablet (Vitamin B-12) 1,000 mcg PO DAILY Supplement 03/24/24
magnesium 250 mg tablet 250 mg PO DAILY Supplement 03/24/24
acetaminophen 500 mg tablet (Tylenol Extra Strength) 1,000 mg (2 x 500 mg) PO Q8 Pain #0 tabs 08/25/24
aspirin 325 mg tablet 325 mg PO DAILY DVT Prophylaxis #28 tabs 08/25/24
baclofen 20 mg tablet 20 mg PO TID spasm #0 tabs 08/25/24
celecoxib 200 mg capsule 200 mg PO DAILY Pain #7 caps 08/25/24
diazepam 5 mg tablet (Valium) 5 mg PO BID spasm #10 tabs 08/25/24
docusate sodium 100 mg capsule 100 mg PO BID Constipation #0 caps 08/25/24
duloxetine 60 mg capsule,delayed release 60 mg PO DAILY Depression #0 caps 08/25/24
ferrous sulfate 325 mg (65 mg iron) tablet (FeroSul) 325 mg PO DAILY anemia #30 tabs 08/25/24
gabapentin 300 mg capsule 300 mg PO TID Neurological Condition #90 caps 08/25/24
mirtazapine 15 mg tablet 15 mg PO HS Depression #0 tabs 08/25/24
oxycodone 10 mg tablet 10 mg PO Q4HPRN PRN severe pain #12 tabs 08/25/24
pantoprazole 20 mg tablet,delayed release 40 mg (2 x 20 mg) PO DAILY Gastrointestinal issue #0 tabs 08/25/24
polyethylene glycol 3350 17 gram oral powder packet (HealthyLax) 17 g PO DAILY Constipation #0 ea 08/25/24
sennosides 8.6 mg tablet (Senna Laxative) 17.2 mg (2 x 8.6 mg) PO HS Constipation #0 tabs 08/25/24
therapeutic multivitamin 1 tab PO DAILY Supplement #0 tabs 08/25/24
tizanidine 4 mg capsule 4 mg PO TID spasm #0 caps 08/25/24
Home Medication Changes
new
Oxy, Celebrex, Senokot, iron
Pending Results: No
[2024-08-25 19:35] VITALS: BP 124/83
--- NOTE | 2024-08-26 17:22 | W.DCSUMMARY ---
Discharge Summary
Discharge Data
Date of Admission: 08/22/24
Date of Discharge: 08/25/24
-
Pending Results: No
Hospital Course
BRIEF HOSPITAL COURSE: This is a 49-year-old female with multiple sclerosis not on any treatment for at least 5 to 6 years, presenting to ED for evaluation of left hip pain after a fall 4 days before presentation. Patient at baseline normally
ambulates with a walker to the bathroom although she needs someone to get in the shower but she is able to do herself. While ambulating to the restroom with a walker, she fell on her left side without hitting her head on the floor. She continued
to experience hip and leg pain post fall, hence decided to come to the ER for evaluation. On presentation to the ER, evaluation with a hip x-ray showed complete, acute subcapital fracture of the left femoral neck. Orthopedic surgeon was consulted,
and surgical and nonsurgical options as well as the risk and benefits of each approach were discussed with the patient. Patient agreed to proceed with surgery. Left hip hemiarthroplasty was done the same day, and she was stable postoperative from
orthopedic standpoint. She continued to progress with physical therapy.
During the course of her hospital stay, she became anemic with hemoglobin level dropping to 8.9. Further workup showed she was iron deficient. Levels trended back up on repeat, and hemoglobin remained stable until discharge. It is recommended she
continues on iron replacement.
She was noted to have some dysphagia and was evaluated by car designer while in-house. Patient declined to have inpatient EGD and opted to have evaluation outpatient. They recommended she follows with gastroenterology as an outpatient for
further evaluation.
Aspirin 325mg daily for DVT prophylaxis x4 weeks postop. Surgical dressing will remain in place for 7-10 days postop. [place] to be removed at two weeks postop.
Discharge Plan
-
Patient Disposition: Jail/SNF
Discharge Diagnosis/Procedures: Hip fracture with left hip hemiarthroplasty on 08/22/2024
Anemia
Multiple sclerosis
Depression
GERD
Diet: As tolerated
Activity: With assistance and As tolerated
Driving Restrictions: No driving
Other Services: PT and OT
Activity Restrictions/Additional Instructions:
Endoscopy as outpatient
left hip hemiarthroplasty under the direction of Dr. Jaime 08/22/24
Weight bear as tolerated to left leg. Ambulate with assistive device. PT/OT
Hip precautions.
Aspirin 325mg daily for DVT prophylaxis x4 weeks postop.
Surgical dressing to remain in place for 7-10 days. [place] to be removed at two weeks postop.
Referrals:
Zi Jaime MD [Active] -
Jayda Teague CRNP [Family Provider] -
Alfred Mace MD [Non-Admitting Privileges] -
Mc Cantor DO [Active] - in three to four weeks (follow up if any further difficulty with swallowing or if would like to review for eventual colonoscopy or discuss constipation management)
Prescriptions:
New
celecoxib 200 mg Capsule
200 mg PO DAILY Qty: 7 0RF
sennosides [Senna Laxative] 8.6 mg Tablet
17.2 mg PO HS Qty: 0 0RF
polyethylene glycol 3350 [HealthyLax] 17 gram Powder In Packet
17 g PO DAILY Qty: 0 0RF
aspirin 325 mg Tablet
325 mg PO DAILY Qty: 28 0RF
ferrous sulfate [FeroSul] 325 mg (65 mg iron) Tablet
325 mg PO DAILY Qty: 30 0RF
docusate sodium 100 mg Capsule
100 mg PO BID Qty: 0 0RF
oxycodone 10 mg Tablet
10 mg PO Q4HPRN PRN (Reason: severe pain) Qty: 12 0RF
acetaminophen [Tylenol Extra Strength] 500 mg Tablet
1,000 mg PO Q8 Qty: 0 0RF
diazepam [Valium] 5 mg tablet
5 mg PO BID Qty: 4 0RF
Continued
cyanocobalamin (vitamin B-12) [Vitamin B-12] 1,000 mcg Tablet
1,000 mcg PO DAILY
magnesium 250 mg Tablet
250 mg PO DAILY
cholecalciferol (vitamin D3) [Vitamin D3] 50 mcg (2,000 unit) Tablet
50 mcg PO DAILY
therapeutic multivitamin Tablet
1 tab PO DAILY Qty: 0 0RF
gabapentin 300 mg Capsule
300 mg PO TID Qty: 90 0RF
mirtazapine 15 mg Tablet
15 mg PO HS Qty: 0 0RF
duloxetine 60 mg Capsule,Delayed Release(Dr/Ec)
60 mg PO DAILY Qty: 0 0RF
tizanidine 4 mg Capsule
4 mg PO TID Qty: 0 0RF
Changed
baclofen 20 mg tablet
20 mg PO TID Qty: 0 0RF
pantoprazole 20 mg Tablet,Delayed Release (Dr/Ec)
40 mg PO DAILY Qty: 0 0RF
Discontinued
diazepam [Valium] 5 mg tablet
5 mg PO BID Qty: 10 0RF
Patient Comments:
08/22/24: last filled 08/04/24 for 60 tablets over 30 days
oxycodone-acetaminophen 10-325 mg Tablet
1 tab PO Q6HPRN PRN (Reason: severe pain)
Patient Comments:
08/22/24: Medication prescribed for every 12 hours, but pain comes back about every 5-6 hours. last filled 08/15/24 for 30 tablets over 15 days.
Discharge Orders:
Discharge Patient (As Directed); Ordered 08/25/24
Ordered By: Pipo Valencia
Discharge Date and Time
Discharge Date/Time: 08/25/24 19:30
Print Language: GHANAIAN
== END 2024-08-25 19:30 | DRG 522 ==
LOC: 2 SOUTH 11:33
PROVIDERS: Student in an Organized Health Care Education/Training Program; ADMITTING PHYSICIAN Hospitalist; CONSULT PHYSICIAN Physical Medicine & Rehabilitation; CONSULT PHYSICIAN Specialist; EMERGENCY PHYSICIAN Emergency Medicine; FAMILY PHYSICIAN Nurse Practitioner Adult Health; OTHER PHYSICIAN Student in an Organized Health Care Education/Training Program
PROC: 0SRB019 Replacement of Left Hip Joint with Metal Synthetic Substitute, Cemented, Open Approach (ICD-10-PCS; 2024-08-22)
DX: S72.012A Unspecified intracapsular fracture of left femur, initial encounter for closed fracture (principal); R64 Cachexia; G35 Multiple sclerosis; F32.A Depression, unspecified; K21.9 Gastro-esophageal reflux disease without esophagitis; F41.9 Anxiety disorder, unspecified; D64.9 Anemia, unspecified; E55.9 Vitamin D deficiency, unspecified; G47.00 Insomnia, unspecified; K59.00 Constipation, unspecified; L40.8 Other psoriasis; L71.9 Rosacea, unspecified; N32.81 Overactive bladder; R13.14 Dysphagia, pharyngoesophageal phase; Z68.22 Body mass index [BMI] 22.0-22.9, adult; Z87.891 Personal history of nicotine dependence; Z79.899 Other long term (current) drug therapy; Z74.09 Other reduced mobility; W19.XXXA Unspecified fall, initial encounter
CPT/HCPCS: 88304; 88311; 73502; 80048; 82607; 82728; 83540; 83550; 85014; 85018; 85025; 85027; 86850; 86900; 86901; 92610; 96374; 97163; 97167; 97530; 99285; C1713; C1776